=== PATIENT | female | born 1960 | race Caucasian/White ===

== ENCOUNTER 2019-10-04 10:53 | Emergency (ER) | payer OTHER, SELFPAY ==
--- NOTE | ~2019-10-04 | CT_ITS ---
EXAMINATION: CT brain wo con EXAM DATE: 10/04/2019 13:06 INDICATION: Generalized headache nausea, left upper quadrant pain. TECHNIQUE: Spiral CT of the head was performed without contrast. Axial, coronal and sagittal images were reviewed. The dose-length product (DLP) for this examination was 605.33 mGy-cm. The exposure w as tailored according to patient size, and iterative reconstruction (ASIR) was used as additional dos e reduction technique. Comparison is made to prior examination from 04/26/2009. FINDINGS: There is no acute intraparenchymal hemorrhage. No evidence of intraparenchymal brain mass lesion. No evidence of acute infarction. There is no mass effect or midline shift. The ventricles are normal in size. There are no extra-axial collections. There are no acute calvarial fractures. T he orbits are unremarkable. Soft tissue is unremarkable. The visualized sinuses and mastoid air verona ls are well aerated. There is right frontal calvarial intramedullary lucent region measuring 1.2 cm in diameter with some trabeculation inside. Region was barely noticeable on head CT from 2008, measuring about 5 mm in diam eter. Could be Paget's disease. IMPRESSION: 1. No acute intracranial findings. 2. Small right frontal calvarial intramedullary lesion probably benign finding such as Paget's disea se. Reviewed, dictated and finalized at location B. T SUPERVISOR IMPRESSION: 1. No acute intracranial findings. 2. Small right frontal calvarial intramedullary lesion probably benign finding such as Paget's disease.
--- NOTE | ~2019-10-04 | CT_ITS ---
EXAMINATION: CT abdomen pelvis w con EXAM DATE: 10/04/2019 13:07 INDICATION: Headache, generalized nausea, left upper quadrant pain. TECHNIQUE: Spiral CT of the abdomen and pelvis was performed following intravenous injection of 100 m L Omnipaque 350. Axial, coronal and sagittal images were reviewed. The dose-length product (DLP) fo r this examination was 1504.93 mGy-cm. The exposure was tailored according to patient size (auto mA exposure control), and iterative reconstruction (ASIR) was used as additional dose reduction techniqu e. Comparison is made to prior examination from 11/06/2018. FINDINGS: The liver, spleen, adrenal glands and pancreas are unremarkable. Gallbladder is unremarkab le. No biliary obstruction. Portal and splenic veins are patent. Kidneys enhance symmetrically. T here is no hydronephrosis. The uterus is unremarkable. The bladder is unremarkable. There is no retroperitoneal or pelvic lymphadenopathy. Small umbilical fat-containing hernia. The appendix is not positively visualized. There is no pericecal inflammatory change to suggest appe ndicitis. The stomach and small bowel are unremarkable. There is expected amount of colonic stool. No free intraperitoneal gas. There is cardiomegaly. There is mild basilar subpleural banding. T he lung bases are unremarkable. There are no osteoblastic or osteolytic lesions identified. Left hi p gamma nail. IMPRESSION: 1. No acute intra-abdominal findings. Reviewed, dictated and finalized at location B. ITURE DESIGNER
[2019-10-04 11:07] VITALS: O2SAT 98
[2019-10-04 11:15] VITALS: BP 230/112; PULSE 88; PULSE 93; RESP 18; RESP 24; TEMP 36.2; O2SAT 98
[2019-10-04 11:16] VITALS: BP 206/88; PULSE 90; RESP 20; O2SAT 97
[2019-10-04 11:16] LABS: Basophils Absolute Auto 0.1 K/mm3 (0.0-0.1); Basophils Percent Auto 0.5 % (0.2-1.2); Eosinophils Percent Auto 0.1 % (0-4.4); Hematocrit 40.7 % (37.0-47.0); Hemoglobin 13.1 g/dL (12.0-15.0); Immature Granulocyte Absolute 0.15 K/mm3 (0.00-0.031); Immature Granulocyte Percent A 1.2 % (0-0.5); Lymphocytes Percent Auto 24.4 % (18.3-44.2); Mean Corpuscular HGB Conc 32.2 g/dl (32-36); Mean Corpuscular Hemoglobin 26.8 pg (26-34); Mean Corpuscular Volume 83.2 fl (80-100); Mean Platelet Volume 10.5 fl (7.4-10.4); Monocytes Absolute Auto 0.6 K/mm3 (0.1-0.6); Monocytes Percent Auto 4.9 % (2.6-8.5); Neutrophils Absolute Auto 8.8 K/mm3 (1.3-6.7); Neutrophils Percent Auto 68.9 % (45.5-73.1); Platelet Count Result 350 k/mm3 (150-375); Red Blood Count 4.89 M/mm3 (4.2-5.4); Red Cell Distribution Width 14.2 % (11.5-14.5); White Blood Count 12.7 K/mm3 (4.5-10.0)
[2019-10-04 11:28] LABS: Alanine Aminotransferase 21 U/L (4-35); Albumin Level 4.5 g/dL (3.5-5.1); Alkaline Phosphatase 104 U/L (38-126); Aspartate Amino Transferase 29 U/L (14-36); Bilirubin,Total 0.5 mg/dL (0.2-1.3); Blood Urea Nitrogen 18 mg/dL (7-17); Calcium 9.4 mg/dL (8.4-10.2); Carbon Dioxide 20 mmol/L (22-30); Chloride 98 mmol/L (98-107); Estimated Glomerular Filt Rate > 60; Glucose 145 mg/dL (65-105); Lipase 101 U/L (23-300); Potassium 4.2 mmol/L (3.4-5.0); Sodium 132 mmol/L (137-145)
[2019-10-04 11:30] VITALS: PULSE 86; RESP 25
[2019-10-04 11:31] VITALS: BP 214/77; PULSE 87; RESP 22; O2SAT 96
[2019-10-04 12:08] LABS: Add Urine Microscopic? YES; Appearance Urine Clear (Clear); Bacteria Urine Trace /hpf; Bilirubin Urine Negative (Negative); Blood Urine 2+ (Negative); Color Urine Yellow (Yellow); Glucose Urine UA Negative (Negative); Ketones Urine Negative (Negative); Leukocyte Esterase Ur Negative LEU/UL (Negative); Mucus Urine Few /lpf; Nitrate Urine Negative (Negative); Protein Urine 3+ mg/dL (Negative); Specific Grav Ur 1.023 (1.001-1.035); Squamous Epithelial Cell Urine Many /hpf (Few); Urobilinogen Urine Negative mg/dL (<2.0)
--- NOTE | 2019-10-04 12:10 | ED.NAVMDI ---
HPI - Nausea/Vomiting/Diarrhea General Chief complaint: Abdominal Pain Stated complaint: ABD PAIN Time Seen by Provider: 10/04/19 12:06 Source: patient and RN notes reviewed Mode of arrival: ambulatory Limitations: no limitations History of Present Illness HPI Narrative: Pt is a 59 y/o female who presents to the ED with c/o nausea, vomiting, and diarrhea starting early this morning. She notes that she developed heart palpitations around 11 PM last night. Pt states that she was struggling to sleep due to her heart pounding. She notes that she later developed severe nausea around 2 AM this morning. Pt states that she began vomiting shortly after becoming nauseas. She notes that she has since had roughly 6 episodes of diarrhea, stating that her stools have been loose. Pt also reports diffuse ABD pain, sinus headache, chronic neck pain, nasal congestion, and urinary frequency, but denies any fever or chills. She notes that she hasn't been around any sick contacts recently. MD elicited complaint: nausea, vomiting and diarrhea Onset (ago): hour(s) (10) Description of diarrhea: lose Associated nausea: Yes Associated abdominal pain: Yes Location of pain: diffuse Associated symptoms: headaches (sinus), palpitation and other (neck pain (chronic); nasal congestion; urinary frequency) Related Data Allergies Allergy/AdvReac Type Severity Reaction Status Date / Time No Known Allergies Allergy Verified 10/04/19 12:26 Review of Systems Review of Systems: All systems reviewed & are unremarkable except as noted in HPI and below Constitutional: Constitutional: Denies chills and Denies fever(s) ENT: Reports headache(s) (sinus) and Reports nasal congestion Cardiovascular: Cardiovascular: Reports palpitations Gastrointestinal: Gastrointestinal: Reports abdominal pain (diffuse ABD pain), Reports diarrhea, Reports nausea and Reports vomiting Genitourinary: Genitourinary: Reports other (urinary frequency) Musculoskeletal: Musculoskeletal: Reports neck pain (chronic) FORMERLY [facility], [facility]–1983 Past Medical History Medical History Arthritis Asthma Bronchitis C. difficile colitis HTN (hypertension) Surgical History Surgical History Hx of appendectomy Hx of tonsillectomy Social History Social History Smoking status: Never smoker Second hand tobacco smoke exposure: No Alcohol intake: never Gender identity (if verbalized by the patient): Female Comments PCP is HISTORY PROFESSOR Sunshine Blancas. Exam Narrative: Exam Narrative: General appearance: Well-developed, well-nourished, morbidly obese, at the bedside Skin: Normal color Head: Normocephalic, nontraumatic Eyes: Clear conjunctiva ENT: Oropharynx normal, ears normal, nose normal Neck: Supple, nontender Chest and respiratory: Airway patent, no respiratory distress, no accessory muscle use Heart: Regular rate/rhythm Abdomen: Soft, mild diffuse abdominal tenderness, no organomegaly, quiet bowel sounds Vascular: Normal peripheral pulses, normal capillary refill. Musculoskeletal: Normal range of motion, nontender back Neurologic: Alert and oriented ?3, PROFESSOR OF GRAPHIC DESIGN is normal as tested, no gross motor deficit Course Course Emergency Course: Improving HISTORY PROFESSOR/PA Physician Supervision Patient feeling much better, no headache, no nausea, no abdominal pain, no palpitation Reevaluation(s) Date: 10/04/19 Time: 13:56 Vital Signs Vital signs: Vital Signs Temperature 36.2 C L 10/04/19 11:15 Pulse Rate 93 10/04/19 11:15 Respiratory Rate 18 10/04/19 11:15 Blood Pressure 230/112 H 10/04/19 11:15
[2019-10-04] MEDS: SODIUM CHLORIDE 0.9% IV 1,000 ML 999 ML IV CONT (13:29)
[2019-10-04] MEDS: ONDANSETRON INJ 4 MG/2 ML VIAL IV PUSH (13:32)
[2019-10-04] MEDS: KETOROLAC 30 MG/ML VIAL (*BKC) IV PUSH (13:33)
[2019-10-04] MEDS: HYDROMORPHONE HCL 1 MG/ML INJ 0.5 MG IV PUSH (13:34)
[2019-10-04 14:47] VITALS: BP 128/70; PULSE 81; RESP 17; O2SAT 93
== END 2019-10-04 15:10 | disposition home or self-care (01) ==
PROVIDERS: Emergency Medicine; Emergency Provider Emergency Medicine; PCP Nurse Practitioner Family
DX: B34.9 Viral infection, unspecified (principal); R00.2 Palpitations; E87.1 Hypo-osmolality and hyponatremia; M19.90 Unspecified osteoarthritis, unspecified site; R31.21 Asymptomatic microscopic hematuria; J45.909 Unspecified asthma, uncomplicated; I10 Essential (primary) hypertension
CPT/HCPCS: 36415; 70450; 74177; 80053; 81001; 81025; 83690; 85025; 96361; 96374; 96375; 99284; J1170; J1885; J2405; J7030; Q9967

== ENCOUNTER 2019-10-07 14:24 | Emergency (ER) | payer OTHER, SELFPAY ==
--- NOTE | ~2019-10-07 | CT_ITS ---
EXAMINATION: CT abdomen pelvis w con DATE: 10/07/2019 16:30 INDICATION: Abdominal pain. Nausea and vomiting. TECHNIQUE: Computed tomography (CT) of the abdomen and pelvis was performed with 100 mL Omnipaque 350 intravenous contrast. Automated exposure control and iterative reconstruction technique were employe d. The dose-length product was 1461.03 mGy-cm. COMPARISON: CT abdomen and pelvis 10/04/2019 FINDINGS: The visualized portions of the lung bases demonstrate chronic peripheral reticular opacitie s and subpleural bands, consistent with chronic lung disease. There is a left posterior diaphragmatic hernia containing fat. No pleural effusion. The heart size is normal. No pericardial effusion. The l iver, gallbladder, spleen, pancreas, and adrenal glands are normal. There is cortical thinning of the kidneys. There are no dilated loops of bowel. The appendix is not visualized. There are no pathologi reji enlarged lymph nodes. There is no free intraperitoneal fluid. There is a romy and screw fixation of left femur. There is mild thoracolumbar spondylosis. IMPRESSION: 1. No etiology for the patient's symptoms. Reviewed, dictated and finalized at location A. UTER FIELD TECHNICIAN
[2019-10-07 14:33] VITALS: BP 125/69; PULSE 89; RESP 16; TEMP 36.8; O2SAT 96
--- NOTE | 2019-10-07 14:49 | ED.NAVMDI ---
HPI - Nausea/Vomiting/Diarrhea General Chief complaint: Nausea/Vomiting/Diarrhea Stated complaint: N/V DIZZY Time Seen by Provider: 10/07/19 14:49 Source: patient Mode of arrival: ambulatory Limitations: no limitations History of Present Illness HPI Narrative: A 59 y/o female presents to the ED with c/o nausea and generalized weakness. Pt denies vomiting and diarrhea stating that she has not eaten anything since Tuesday (4 days ago). Pt states that taking a hot shower somewhat alleviated her symptoms. Pt experienced similar problems about 20 years ago and was diagnosed with C-diff at the time. She reports body aches, ABD cramping, dizziness, and a cough, but denies CP. Pertinent past history: other (C-diff) Relieving factors: hot shower/bath Related Data Allergies Allergy/AdvReac Type Severity Reaction Status Date / Time No Known Allergies Allergy Verified 10/07/19 14:39 Review of Systems Review of Systems: Narrative: Constitutional: Positive for generalized weakness, body aches, dizziness. Negative for fever and chills. HENT: Negative for congestion. Eyes: Negative for blurred vision. Respiratory: Positive for cough. Negative for shortness of breath. Cardiovascular: Negative for chest pain. Gastrointestinal: Positive for nausea, ABD cramping. Negative for vomiting, and diarrhea. Genitourinary: Negative for dysuria and hematuria. Musculoskeletal: Negative for back pain and neck pain. Neurological: Negative for headaches or focal motor deficit. All systems reviewed & are unremarkable except as noted in HPI and below PMFSH Past Medical History Medical History Arthritis Asthma Bronchitis C. difficile colitis Fractures History of blood transfusion HTN (hypertension) Surgical History Surgical History Hx of appendectomy Hx of tonsillectomy Social History Social History Smoking status: Never smoker Second hand tobacco smoke exposure: No Alcohol intake: never Gender identity (if verbalized by the patient): Female Comments PCP: Sunshine Blancas NP Exam Narrative: Exam Narrative: Constitutional: Appears well-developed. No distress. Head: Normocephalic. Nose: Nose normal. Mouth/Throat: Oropharynx is clear and moist. Eyes: Conjunctiva are normal. Neck: Normal range of motion. Neck supple. Cardiovascular: Normal rate and regular rhythm. Pulmonary/Chest: Effort normal and breath sounds normal. Abdominal: Soft. There is no tenderness. Musculoskeletal: Normal range of motion. No edema. Neurological: Alert and oriented to person, place, and time. Skin: Skin is warm. No pallor. Psychiatric: Normal mood and affect. Course Vital Signs Vital signs: Vital Signs Temperature 36.8 C 10/07/19 14:33 Pulse Rate 89 10/07/19 14:33 Respiratory Rate 16 10/07/19 14:33 Blood Pressure 125/69 10/07/19 14:33 Pulse Oximetry 96 10/07/19 14:33 Temperature 36.8 C 10/07/19 14:33 Pulse Rate 68 10/07/19 18:42 Respiratory Rate 16 10/07/19 18:42 Blood Pressure 130/66 10/07/19 18:42 Pulse Oximetry 98 10/07/19 18:42 MDM - Nausea/Vomiting/Diarrhea Lab Data Result diagrams: 10/07/19 15:40 10/07/19 15:40 Labs: Lab Results 10/07/19 10/07/19 10/07/19 Range/Units 15:40 15:40 15:56 WBC 10.7 H (4.5-10.0) K/mm3 RBC 4.92 (4.2-5.4) M/mm3 Hgb 13.1 (12.0-15.0) g/dL Hct 41.0 (37.0-47.0) % MCV 83.3 (80-100) fl MCH 26.6 (26-34) pg MCHC 32.0 (32-36) g/dl RDW 14.4 (11.5-14.5) % Plt Count 292 (150-375) k/mm3 MPV 10.4 (7.4-10.4) fl Immature Gran % (Auto) 0.4 (0-0.5) % Neut % (Auto) 73.9 H (45.5-73.1) % Lymph % (Auto) 14.1 L (18.3-44.2) % [place] % (Auto) 10.4 H (2.6-8.5) % Eos % (Auto) 0.8 (0-4.4) % Baso % (Auto) 0.4 (0.2-1.2)
[2019-10-07] MEDS: SODIUM CHLORIDE 0.9% IV 1,000 ML 999 ML IV CONT (15:17)
[2019-10-07] MEDS: ONDANSETRON INJ 4 MG/2 ML VIAL IV PUSH (15:18)
[2019-10-07] MEDS: LORAZEPAM INJ 2 MG/ML VIAL 1 MG IV PUSH (15:19)
[2019-10-07 15:20] VITALS: BP 135/68; PULSE 69; RESP 17; O2SAT 97
[2019-10-07 15:47] LABS: Basophils Percent Auto 0.4 % (0.2-1.2); Eosinophils Absolute Auto 0.1 K/mm3 (0-0.3); Eosinophils Percent Auto 0.8 % (0-4.4); Hemoglobin 13.1 g/dL (12.0-15.0); Immature Granulocyte Absolute 0.04 K/mm3 (0.00-0.031); Immature Granulocyte Percent A 0.4 % (0-0.5); Lymphocytes Absolute Auto 1.51 K/mm3 (0.9-3.2); Lymphocytes Percent Auto 14.1 % (18.3-44.2); Mean Corpuscular Hemoglobin 26.6 pg (26-34); Mean Corpuscular Volume 83.3 fl (80-100); Mean Platelet Volume 10.4 fl (7.4-10.4); Monocytes Absolute Auto 1.1 K/mm3 (0.1-0.6); Monocytes Percent Auto 10.4 % (2.6-8.5); Neutrophils Absolute Auto 7.9 K/mm3 (1.3-6.7); Neutrophils Percent Auto 73.9 % (45.5-73.1); Platelet Count Result 292 k/mm3 (150-375); Red Blood Count 4.92 M/mm3 (4.2-5.4); Red Cell Distribution Width 14.4 % (11.5-14.5); White Blood Count 10.7 K/mm3 (4.5-10.0)
[2019-10-07 15:58] LABS: Alanine Aminotransferase 22 U/L (4-35); Albumin Level 4.1 g/dL (3.5-5.1); Alkaline Phosphatase 70 U/L (38-126); Aspartate Amino Transferase 31 U/L (14-36); Bilirubin,Total 0.9 mg/dL (0.2-1.3); Blood Urea Nitrogen 15 mg/dL (7-17); Carbon Dioxide 23 mmol/L (22-30); Chloride 101 mmol/L (98-107); Estimated CRCL calculation 54 ml/min; Estimated Glomerular Filt Rate 42; Glucose 122 mg/dL (65-105); Lipase 128 U/L (23-300); Potassium 3.2 mmol/L (3.4-5.0); Sodium 136 mmol/L (137-145)
[2019-10-07 16:25] LABS: Add Urine Microscopic? YES; Appearance Urine Cloudy (Clear); Bacteria Urine 2+ /hpf; Bilirubin Urine Negative (Negative); Blood Urine Negative (Negative); Color Urine Yellow (Yellow); Glucose Urine UA Negative (Negative); Hyaline Casts Urine 15-19 /lpf; Ketones Urine 1+ mg/dL (Negative); Leukocyte Esterase Ur Negative LEU/UL (Negative); Mucus Urine Few /lpf; Nitrate Urine Negative (Negative); Protein Urine Negative (Negative); Specific Grav Ur 1.015 (1.001-1.035); Squamous Epithelial Cell Urine Many /hpf (Few); WBC Urine 0-3 /hpf
[2019-10-07 16:52] LABS: Amphetamine Screen Urine Negative (Negative); Barbiturate Screen Urine Negative (Negative); Benzodiazepines Screen Urine Negative (Negative); Cannabinoid Screen Urine Negative (Negative); Cocaine Screen Urine Negative (Negative); Methadone Screen Urine Negative (Negative); Opiate Screen Urine Negative (Negative); Phencyclidine Screen Urine Negative (Negative)
[2019-10-07] MEDS: POTASSIUM CHLORIDE 20 MEQ TABLET 40 MEQ PO (17:17)
[2019-10-07 17:18] VITALS: BP 138/82; PULSE 66; RESP 16; O2SAT 97
[2019-10-07 17:43] VITALS: BP 142/75; PULSE 72; RESP 16; O2SAT 96
[2019-10-07 18:42] VITALS: BP 130/66; PULSE 68; RESP 16; O2SAT 98
== END 2019-10-07 19:24 | disposition home or self-care (01) ==
PROVIDERS: Emergency Medicine; Emergency Provider Emergency Medicine; PCP Nurse Practitioner Family
DX: R11.0 Nausea (principal); R10.9 Unspecified abdominal pain; M19.90 Unspecified osteoarthritis, unspecified site; J45.909 Unspecified asthma, uncomplicated; I10 Essential (primary) hypertension
CPT/HCPCS: 36415; 74177; 80053; 80307; 81001; 83690; 85025; 96361; 96374; 96375; 99284; A9270; J2060; J2405; J7030; Q9967

== ENCOUNTER 2019-10-12 19:38 | Emergency (ER) | payer OTHER, SELFPAY ==
--- NOTE | ~2019-10-12 | CT_ITS ---
EXAMINATION: CT brain wo con DATE: 10/13/2019 00:43 INDICATION: Dizziness TECHNIQUE: Computed tomography (CT) of the head was performed without intravenous contrast. The mA wa s adjusted according to patient size. Iterative reconstruction technique was employed. Exam dose: 60 5.33 mGy-cm total exam DLP. COMPARISON: 10/04/2019 CT head FINDINGS: No intracranial mass lesion or hemorrhage or evidence of cerebrovascular accident. No midli ne shift or mass effect. Normal ventricular size. No subdural or epidural hematoma. No skull fracture is evident. Again noted is an intramedullary lesion in the parasagittal right frontal bone. The included paranasal sinuses and mastoid air cells are essentially unremarkable other than some pat maykel soft tissue thickening of the ethmoid air cells. IMPRESSION: No acute intracranial finding or significant change since 10/04/2019 Reviewed, dictated and finalized at Location A. Reviewed, dictated and finalized at location A. UNCTURIST IMPRESSION: No acute intracranial finding or significant change since 0
--- NOTE | ~2019-10-12 | XR_ITS ---
XR chest 2V DATE: 10/13/2019 00:43 INDICATION: Cough TECHNIQUE: PA and lateral views COMPARISON: 11/19/2018 CT pulmonary scan 11/01/2018 2 view chest FINDINGS: Normal heart size. Aortic calcification. No hilar or mediastinal enlargement. Chronic mild blunting of the costophrenic angles. No pulmonary infiltrate or consolidation, pleural effusion or pulmonary vascular congestion or pneumo thorax. Degenerative spurring of the thoracic spine. IMPRESSION: No active cardiopulmonary disease or significant change since 11/01/2018 Reviewed, dictated and finalized at location A. NDING MACHINE OPERATOR HELPER IMPRESSION: No active cardiopulmonary disease or significant change since 2018
--- NOTE | ~2019-10-12 | CT_ITS ---
EXAMINATION: CT abdomen pelvis w con DATE: 10/13/2019 00:43 INDICATION: Generalized abdominal pain, nausea TECHNIQUE: Computed tomography (CT) of the abdomen and pelvis was performed with 100 cc Omnipaque 350 intravenous contrast. Automated exposure control and iterative reconstruction technique were employe d. Exam dose: 1516.11 mGy-cm total exam DLP. COMPARISON: 10/07/2019 CT abdomen and pelvis with IV contrast material FINDINGS: The contrast material reportedly infiltrated upon injection and there is essentially no int ravenous contrast material on board. No consolidation at the lung bases. Normal heart size. No pericardial or pleural effusion. No hepatic, splenic, pancreatic, adrenal or renal space-occupying mass lesion. The gallbladder is pre sent. No bile duct or pancreatic duct dilatation. No renal mass lesion or urinary tract calculus or h ydroureteronephrosis. Normal caliber of the abdominal aorta. The uterus and adnexal areas and urinary bladder are unremarkable. No bowel obstruction or intraperitoneal free air. Small fat-containing umbilical hernia. An intramedullary romy is present in the left femur. No suspicious osteolytic or osteoblastic lesions. IMPRESSION: No significant abnormality Reviewed, dictated and finalized at Location A. Reviewed, dictated and finalized at location A. T TEAM CLERK IMPRESSION: No significant abnormality
[2019-10-12 19:51] VITALS: BP 167/101; PULSE 106; RESP 28; TEMP 37.7; O2SAT 100
[2019-10-12 20:04] LABS: Basophils Absolute Auto 0.1 K/mm3 (0.0-0.1); Basophils Percent Auto 0.7 % (0.2-1.2); Eosinophils Absolute Auto 0.1 K/mm3 (0-0.3); Eosinophils Percent Auto 0.9 % (0-4.4); Hematocrit 39.6 % (37.0-47.0); Hemoglobin 12.8 g/dL (12.0-15.0); Immature Granulocyte Absolute 0.02 K/mm3 (0.00-0.031); Immature Granulocyte Percent A 0.3 % (0-0.5); Lymphocytes Absolute Auto 1.37 K/mm3 (0.9-3.2); Lymphocytes Percent Auto 18.5 % (18.3-44.2); Mean Corpuscular HGB Conc 32.3 g/dl (32-36); Mean Corpuscular Volume 83.5 fl (80-100); Mean Platelet Volume 10.1 fl (7.4-10.4); Monocytes Absolute Auto 1.2 K/mm3 (0.1-0.6); Monocytes Percent Auto 16.6 % (2.6-8.5); Neutrophils Absolute Auto 4.7 K/mm3 (1.3-6.7); Platelet Count Result 269 k/mm3 (150-375); Red Blood Count 4.74 M/mm3 (4.2-5.4); Red Cell Distribution Width 14.8 % (11.5-14.5); White Blood Count 7.4 K/mm3 (4.5-10.0)
[2019-10-12 20:17] LABS: Alanine Aminotransferase 22 U/L (4-35); Albumin Level 4.2 g/dL (3.5-5.1); Alkaline Phosphatase 80 U/L (38-126); Aspartate Amino Transferase 29 U/L (14-36); Bilirubin,Total 0.5 mg/dL (0.2-1.3); Blood Urea Nitrogen 10 mg/dL (7-17); Calcium 9.4 mg/dL (8.4-10.2); Carbon Dioxide 26 mmol/L (22-30); Chloride 98 mmol/L (98-107); Estimated CRCL calculation 86 ml/min; Estimated Glomerular Filt Rate > 60; Glucose 119 mg/dL (65-105); Lipase 134 U/L (23-300); Potassium 4.2 mmol/L (3.4-5.0); Sodium 137 mmol/L (137-145)
[2019-10-12 20:18] LABS: Add Urine Microscopic? YES; Appearance Urine Clear (Clear); Bacteria Urine Trace /hpf; Bilirubin Urine Negative (Negative); Blood Urine 1+ (Negative); Color Urine Yellow (Yellow); Glucose Urine UA Negative (Negative); Ketones Urine Negative (Negative); Leukocyte Esterase Ur Negative LEU/UL (Negative); Mucus Urine Rare /lpf; Nitrate Urine Negative (Negative); Protein Urine Negative (Negative); Specific Grav Ur 1.015 (1.001-1.035); Squamous Epithelial Cell Urine Moderate /hpf (Few); Urobilinogen Urine Negative mg/dL (<2.0); WBC Urine 0-3 /hpf
--- NOTE | 2019-10-12 22:41 | ED.NAVMDI ---
HPI - Nausea/Vomiting/Diarrhea General Chief complaint: Nausea/Vomiting/Diarrhea Stated complaint: N/V Time Seen by Provider: 10/12/19 22:39 Source: patient Mode of arrival: ambulatory Limitations: no limitations History of Present Illness HPI Narrative: A 59 y/o female presents to the ED with c/o diffuse ABD pain. She states that the ABD pain started 1 week ago and has been constant since. Pt reports dizziness, trouble walking, neck pain/stiffness, sinus congestion, sinus pressure, tinnitus, worsening vision, constipation, N/V, and back pain, but denies dysuria, hematuria, and fever. Her neck stiffness started 1.5 weeks ago and her last BM was on 10/08/19. She notes that she has been seen in the ED twice before for the same symptoms. She finished Bactrim last week and is currently on a Z-Jose. MD elicited complaint: abdominal pain (Diffuse) Onset (ago): week(s) (1) Associated nausea: Yes Location of pain: diffuse Pain consistency: constant Associated symptoms: nausea/vomiting, change in vision (Worsening vision) and other (Dizziness, trouble walking, neck pain/stiffness, sinus congestion, sinus pressure, tinnitus, constipation, back pain) Treatment prior to arrival: other (Z-Jose) Related Data Allergies Allergy/AdvReac Type Severity Reaction Status Date / Time No Known Allergies Allergy Verified 10/12/19 23:16 Review of Systems Review of Systems: Narrative: CONSTITUTIONAL: Denies fever, chills, or sweats. EYES: Denies redness or discharge. Reports worsening vision. ENT: Denies rhinorrhea, sore throat, or otalgia. Reports tinnitus, sinus pressure, and sinus congestion. CARDIOVASCULAR: Denies chest pain, palpitations, or edema. RESPIRATORY: Denies cough or dyspnea. GASTROINTESTINAL: Denies diarrhea. Reports diffuse abdominal pain, nausea, vomiting, and constipation. GENITOURINARY: Denies dysuria or hematuria. SKIN: Denies rash or itching. MUSCULOSKELETAL: Denies joint pain or myalgia. Reports back pain and neck pain and stiffness. NEUROLOGIC: Denies headache, numbness, or weakness. Reports dizziness and trouble walking. All systems reviewed & are unremarkable except as noted in HPI and below PMFSH Past Medical History Medical History Arthritis Asthma Bronchitis C. difficile colitis Fractures History of blood transfusion HTN (hypertension) Post-menopausal Surgical History Surgical History Hx of appendectomy Hx of tonsillectomy Social History Social History Smoking status: Never smoker Second hand tobacco smoke exposure: No Alcohol intake: never Gender identity (if verbalized by the patient): Female Exam Narrative: Exam Narrative: GENERAL: Well-appearing, obese, and in no acute distress. HEAD: Normocephalic, atraumatic. EYES: PERRLA and EOMI. ENT: Nares clear, no rhinorrhea or epistaxis. Mucous membranes moist. NECK: Supple. CHEST: Clear to auscultation. No respiratory distress. HEART: Regular rate and rhythm. No murmur heard. Normal peripheral pulses. ABDOMEN: Soft, diffuse tenderness, nondistended, normal active bowel sounds. EXTREMITIES: Normal range of motion. No edema. SKIN: Warm, dry, no rash. NEURO: No focal deficits. Alert and oriented X3. Course Course Emergency Course: Patient presented for evaluation of a myriad of complaints, found to have influenza A. No acute findings on chest, CT abdomen pelvis, or CT head. Patient was able to tolerate oral intake. No severe electrolyte derangements, no UTI. Patient discharged home with influenza treatment, advised symptomatic care. Vital Signs Vital signs: Vital Signs Temperature 37.7 C H 10/12/19 19:51 Pulse Rate 106 H 10/12/19 19:51 Respiratory Rate 28 H 10/12/19 19:51 Blood Pressure 167/101 H 10/12/19 19:51 Pulse Oximetry 100 10/12/19 19:51 Temperature 37.7 C H 10/12/19 19:51 Pulse Rate 83
[2019-10-12 23:11] VITALS: BP 159/73; PULSE 83; RESP 18; O2SAT 97
--- NOTE | 2019-10-12 23:30 | PC.NURSE ---
This nurse and EMT student attempted IV access, no success. mounted police officer aware, she stated she will attempt IV access.
[2019-10-13] MEDS: MORPHINE SULFATE 4 MG/ML INJ IV PUSH (00:03)
[2019-10-13] MEDS: SODIUM CHLORIDE 0.9% IV 1,000 ML 999 ML IV CONT (00:03)
[2019-10-13] MEDS: ONDANSETRON INJ 4 MG/2 ML VIAL IV PUSH (00:03)
[2019-10-13] MEDS: ACETAMINOPHEN 500 MG TABLET 1000 MG PO (03:27)
[2019-10-13 03:29] VITALS: BP 143/94; PULSE 75; RESP 20; O2SAT 97
== END 2019-10-13 03:30 | disposition home or self-care (01) ==
PROVIDERS: Emergency Medicine; Emergency Provider Emergency Medicine; PCP Nurse Practitioner Family
DX: J10.2 Influenza due to other identified influenza virus with gastrointestinal manifestations (principal); M19.90 Unspecified osteoarthritis, unspecified site; J45.909 Unspecified asthma, uncomplicated; I10 Essential (primary) hypertension
CPT/HCPCS: 36415; 70450; 71046; 74177; 80053; 81001; 83690; 85025; 87804; 96361; 96365; 96375; 99284; A9270; J0131; J2270; J2405; J7030; Q9967

== ENCOUNTER 2019-10-17 04:22 | Emergency (ER) | payer OTHER, SELFPAY ==
[2019-10-17] VITALS (10 sets, daily range): BP systolic 127–178; BP diastolic 59–103; PULSE 68–89; RESP 16–20; TEMP 36.5–37; O2SAT 20–100
--- NOTE | ~2019-10-17 | XR_ITS ---
EXAMINATION: XR chest 2V EXAM DATE: 10/17/2019 08:45 INDICATION: Cough. TECHNIQUE: Frontal and lateral projections of the chest obtained and reviewed. Comparison is made to prior examination from 10/13/2019. FINDINGS: The lungs are clear. There are no pleural effusions. The cardiomediastinal silhouette is within normal limits. There is no pneumothorax suspected. The bones and soft tissues are unremarkab le. IMPRESSION: Normal chest x-ray exam. Reviewed, dictated and finalized at location B. INE DYER IMPRESSION: Normal chest x-ray exam.
--- NOTE | ~2019-10-17 | XR_ITS ---
EXAMINATION: XR abdomen obstructive series DATE: 10/17/2019 06:29 INDICATION: Vomiting. Left upper quadrant abdominal pain. TECHNIQUE: Frontal supine and upright views of the abdomen were obtained. COMPARISON: CT dated 10/13/2019 FINDINGS: Moderate amount of gas scattered throughout the colon with scattered air-fluid level suggesting diarr hea. No dilated gas-filled loops of bowel. No free intraperitoneal gas. Visualized lung bases are c lear. IMPRESSION: 1. No free intraperitoneal gas or dilated gas-filled loops of bowel to suggest obstruction. Reviewed, dictated and finalized at location A. FARMWORKER
--- NOTE | 2019-10-17 05:00 | PC.NURSE ---
PT UNABLE TO GIVE URINE SAMPLE AT THIS TIME.
[2019-10-17 05:13] LABS: Basophils Percent Auto 0.3 % (0.2-1.2); Eosinophils Absolute Auto 0.1 K/mm3 (0-0.3); Eosinophils Percent Auto 0.9 % (0-4.4); Hematocrit 40.7 % (37.0-47.0); Hemoglobin 12.5 g/dL (12.0-15.0); Immature Granulocyte Absolute 0.02 K/mm3 (0.00-0.031); Immature Granulocyte Percent A 0.3 % (0-0.5); Lymphocytes Absolute Auto 1.67 K/mm3 (0.9-3.2); Lymphocytes Percent Auto 24.2 % (18.3-44.2); Mean Corpuscular HGB Conc 30.7 g/dl (32-36); Mean Corpuscular Hemoglobin 26.2 pg (26-34); Mean Corpuscular Volume 85.1 fl (80-100); Mean Platelet Volume 10.2 fl (7.4-10.4); Monocytes Absolute Auto 0.5 K/mm3 (0.1-0.6); Monocytes Percent Auto 7.4 % (2.6-8.5); Neutrophils Absolute Auto 4.6 K/mm3 (1.3-6.7); Neutrophils Percent Auto 66.9 % (45.5-73.1); Platelet Count Result 231 k/mm3 (150-375); Red Blood Count 4.78 M/mm3 (4.2-5.4); Red Cell Distribution Width 14.3 % (11.5-14.5); White Blood Count 6.9 K/mm3 (4.5-10.0)
[2019-10-17 05:27] LABS: Alanine Aminotransferase 26 U/L (4-35); Alkaline Phosphatase 62 U/L (38-126); Aspartate Amino Transferase 40 U/L (14-36); Bilirubin,Total 0.5 mg/dL (0.2-1.3); Blood Urea Nitrogen 8 mg/dL (7-17); Calcium 9.2 mg/dL (8.4-10.2); Carbon Dioxide 27 mmol/L (22-30); Chloride 95 mmol/L (98-107); Estimated CRCL calculation 76 ml/min; Estimated Glomerular Filt Rate > 60; Glucose 143 mg/dL (65-105); Lipase 78 U/L (23-300); Potassium 3.7 mmol/L (3.4-5.0); Sodium 137 mmol/L (137-145)
--- NOTE | 2019-10-17 06:00 | PC.NURSE ---
PT UNABLE TO VOID AT THIS TIME.
--- NOTE | 2019-10-17 06:20 | ED.NAVMDI ---
HPI - Nausea/Vomiting/Diarrhea General Chief complaint: Nausea/Vomiting/Diarrhea Stated complaint: vomiting Time Seen by Provider: 10/17/19 05:25 Source: old records reviewed History of Present Illness HPI Narrative: Patient presents emergency department from home for nausea vomiting diarrhea. Patient states symptoms began yesterday. Patient states she has had numerous episodes of emesis is been unable to keep anything down. States that she had diarrhea yesterday and took Imodium which did help with her diarrhea. Patient reports she has been having pain in her left upper quadrant. She reports subjective fevers. Denies any chest pain or shortness of breath. Denies any other symptoms at this time Related Data Allergies Allergy/AdvReac Type Severity Reaction Status Date / Time No Known Allergies Allergy Verified 10/12/19 23:16 Review of Systems Review of Systems: Narrative: Gen.: Denies fevers or chills ENT: Denies congestion Respiratory: Denies shortness of breath or cough CV: Denies chest pain or palpitations GI: See HPI denies burning, urgency, frequency or hematuria Musculoskeletal: Denies back pain or muscle pain Neuro: Denies numbness, tingling, weakness or focal weakness Skin: Denies rash Except as documented, all other systems reviewed and negative PMFSH Past Medical History Medical History Arthritis Asthma Bronchitis C. difficile colitis Fractures History of blood transfusion HTN (hypertension) Post-menopausal Social History Social History Smoking status: Never smoker Second hand tobacco smoke exposure: No Alcohol intake: never Gender identity (if verbalized by the patient): Female Exam Narrative: Exam Narrative: APPEARANCE: No acute distress, nontoxic, resting in bed HEENT: Normocephalic, atraumatic, OMM RESPIRATORY: No respiratory distress, clear to auscultation bilaterally with no rhonchi wheezing or rales CARDIOVASCULAR: RRR s murmur ABDOMINAL: Obese, soft, nondistended, tender palpation in left upper quadrant, no tenderness right upper quadrant, right lower quadrant with lower quadrant, no rebound or guarding MUSCULOSKELETAl: Moves all extremities. No clubbing, cyanosis or edema. NEURO: Awake and alert. Following commands, speech normal, no focal deficits SKIN:: Warm, dry. Normal Color PSYCHIATRIC: Normal affect/mood Course Course Emergency Course: Reviewed old records. Patient seen in emergency department on October 12. Diagnosed with influenza A at that time. Patient states she has 2 Tamiflu left Patient states she is feeling better. Able to drink in the emergency department with no emesis. Patient with walking pulse ox able to ambulate on her own with no difficulty oxygen saturations remained in the 90s Patient states that they are feeling much better at this time. States abdominal pain has resolved. Repeat abdominal exam shows the patient's abdomen to be soft and nontender. Discussed with patient results of workup and diagnosis. Discussed need for follow-up with primary care physician, reasons to return to the emergency department in proper use of medication. Patient understands and agrees to current treatment plan Vital Signs Vital signs: Vital Signs Temperature 97.7 F 10/17/19 04:26 Pulse Rate 87 10/17/19 04:26 Respiratory Rate 20 10/17/19 04:26 Blood Pressure 172/94 H 10/17/19 04:26 Pulse Oximetry 97 10/17/19 04:26 Temperature 98.6 F 10/17/19 05:24 Pulse Rate 73 10/17/19 09:08 Respiratory Rate 20 10/17/19 09:08 Blood Pressure 139/59 L 10/17/19 09:08 Pulse Oximetry 94 10/17/19 09:08 MDM - Nausea/Vomiting/Diarrhea Lab Data Result diagrams: 10/17/19 05:08 10/17/19 05:08 Labs: Lab Results 10/17/19 10/17/19 10/17/19 Range/Units 05:08 05:08 07:32 WBC 6.9 (4.5-10.0) K/mm3 RBC 4.78 (4.2
[2019-10-17] MEDS: LACTATED RINGERS 1,000 ML 999 ML IV CONT (06:39)
[2019-10-17] MEDS: ONDANSETRON INJ 4 MG/2 ML VIAL IV PUSH (06:39)
[2019-10-17 07:51] LABS: Add Urine Microscopic? YES; Appearance Urine Clear (Clear); Bilirubin Urine Negative (Negative); Blood Urine 1+ (Negative); Color Urine Straw (Yellow); Glucose Urine UA Negative (Negative); Ketones Urine Negative (Negative); Leukocyte Esterase Ur Negative LEU/UL (Negative); Mucus Urine Rare /lpf; Nitrate Urine Negative (Negative); Protein Urine Negative (Negative); RBC Urine 0-2 /hpf (0-2); Specific Grav Ur 1.006 (1.001-1.035); Squamous Epithelial Cell Urine Rare /hpf (Few); Urobilinogen Urine Negative mg/dL (<2.0); WBC Urine 0-3 /hpf
[2019-10-17] MEDS: PROMETHAZINE HCL 25 MG/ML AMPUL 12.5 MG IV PUSH (09:03)
== END 2019-10-17 13:40 | disposition home or self-care (01) ==
PROVIDERS: General Practice; Emergency Provider Emergency Medicine; PCP Nurse Practitioner Family
DX: J10.1 Influenza due to other identified influenza virus with other respiratory manifestations (principal); R11.2 Nausea with vomiting, unspecified; M19.90 Unspecified osteoarthritis, unspecified site; J45.909 Unspecified asthma, uncomplicated; I10 Essential (primary) hypertension
CPT/HCPCS: 36415; 71046; 74019; 80053; 81001; 83690; 85025; 96361; 96374; 96375; 99284; J2405; J2550; J7120

== ENCOUNTER 2020-01-07 12:56 | Outpatient (CLI) | payer OTHER, SELFPAY ==
--- NOTE | ~2020-01-07 | CT_ITS ---
EXAMINATION: CT abdomen pelvis wo con DATE: 01/07/2020 13:50 INDICATION: Acute right low back pain TECHNIQUE: Computed tomography (CT) of the abdomen and pelvis was performed without intravenous contr ast. The dose-length product was 1460.76 mGy-cm. Automated exposure control and iterative reconstruct ion technique were employed. COMPARISON: CT dated 10/13/2019 FINDINGS: Lung bases are unremarkable. Heart size is normal. No significant pleural or pericardial ef fusion. Lung bases are unremarkable. No significant vascular abnormality. No lymphadenopathy. Small fat-containing umbilical hernia. The liver, spleen, pancreas, adrenal glands and kidneys are un remarkable. No renal/ureteral stones. Bladder is unremarkable. No abnormal pelvic masses or fluid col lections. There is an intramedullary romy in the left femur, partially visualized. No acute osseous ab normality. IMPRESSION: 1. No acute abdominal abnormality. Reviewed, dictated and finalized at location A.
== END 2020-01-07 12:57 | disposition home or self-care (01) ==
LOC: ANHIMG 13:02
PROVIDERS: PCP Nurse Practitioner Family; Visit Provider Nurse Practitioner Family
DX: M54.41 Lumbago with sciatica, right side (principal); R31.9 Hematuria, unspecified; R80.9 Proteinuria, unspecified
CPT/HCPCS: 74176

== ENCOUNTER 2020-01-21 17:06 | Emergency (ER) | payer OTHER, SELFPAY ==
--- NOTE | ~2020-01-21 | CT_ITS ---
EXAMINATION: CT brain wo con INDICATION: Head injury COMPARISON: None TECHNIQUE: Standard unenhanced head CT. The dose-length product (DLP) was 605.33 mGy-cm. The mA was a djusted according to patient size. Iterative reconstruction technique was employed. FINDINGS: There is no intracranial hemorrhage, acute infarction, or abnormal mass lesion. The ventric les are normal. There is no abnormal mass effect or midline shift. The davenport-white matter differentiat ion is normal. The basal cisterns are patent. The orbits are normal. A polyp or mucous retention cyst is noted in the left maxillary sinus. IMPRESSION: 1. No acute intracranial abnormality. Reviewed, dictated and finalized at location A.
--- NOTE | ~2020-01-21 | XR_ITS ---
EXAMINATION: XR knee LT 3V DATE: 01/21/2020 20:58 INDICATION: Left knee pain TECHNIQUE: Three views of the left knee were obtained. COMPARISON: 05/27/2015 FINDINGS: There is partially imaged internal stabilization hardware in the distal femur traversing a healed distal shaft fracture. Alignment is normal. No acute fracture or osteochondral lesion. There i s moderate tricompartmental osteoarthritis. No joint effusion/synovitis. Soft tissues are unremarkab le. IMPRESSION: 1. No acute osseous abnormality. Reviewed, dictated and finalized at location A.
--- NOTE | ~2020-01-21 | CT_ITS ---
EXAMINATION: CT cervical spine wo con DATE: 01/21/2020 20:24 INDICATION: Neck pain after fall TECHNIQUE: Computed tomography (CT) of the cervical spine was performed without intravenous contrast. The dose-length product (DLP) was 447.95 mGy-cm. Automated exposure control and iterative reconstruc tion technique were employed. COMPARISON: None FINDINGS: There is straightening of the cervical spine which can be positional or due to muscular spa sm. The vertebral body heights and alignment are normal. There is mild loss of intervertebral disc sp jacob height at C4-5, C5-6, and C6-7. The odontoid is intact. The prevertebral soft tissues are normal. Degenerative osteophytes project from the anterior endplates of multiple vertebral bodies. There is severe multilevel facet and uncovertebral joint osteoarthritis. IMPRESSION: 1. Moderate cervical spondylosis without acute findings. Reviewed, dictated and finalized at location A.
--- NOTE | ~2020-01-21 | XR_ITS ---
EXAMINATION: XR hip BI 2V w AP pelvis DATE: 01/21/2020 20:56 INDICATION: Hip pain after fall TECHNIQUE: AP view the pelvis and three views of the hips were obtained. COMPARISON: None. FINDINGS: An intramedullary romy is present in the left femur. There is no acute fracture, dislocation , or subluxation. Bone alignment is normal. IMPRESSION: 1. No acute osseous abnormality. Reviewed, dictated and finalized at location A.
--- NOTE | ~2020-01-21 | XR_ITS ---
EXAMINATION: XR wrist LT min 3V DATE: 01/21/2020 20:58 INDICATION: Left wrist pain TECHNIQUE: Posteroanterior, ulnar deviation, oblique, and lateral views of the left wrist were obtain ed. COMPARISON: None available FINDINGS: There is a chronic-appearing ulnar styloid avulsion. No acute fracture is identified. There is moderate osteoarthritis at the triscaphe and first carpometacarpal joints. Mild osteoarthritis is noted in multiple interphalangeal joints. IMPRESSION: 1. No acute osseous abnormality. Reviewed, dictated and finalized at location A.
--- NOTE | ~2020-01-21 | XR_ITS ---
EXAMINATION: XR ankle LT min 3V DATE: 01/21/2020 20:55 INDICATION: Ankle pain after fall TECHNIQUE: Anteroposterior, lateral, mortise, and additional oblique view of the ankle were obtained. COMPARISON: None. FINDINGS: There is no fracture, dislocation, or subluxation. The bones, soft tissues, and joint space s are normal. IMPRESSION: 1. No acute osseous abnormality. Reviewed, dictated and finalized at location A.
--- NOTE | ~2020-01-21 | XR_ITS ---
EXAMINATION: XR elbow LT min 3V DATE: 01/21/2020 20:56 INDICATION: Left elbow pain after fall TECHNIQUE: Anteroposterior, two oblique and lateral views of the left elbow were obtained. COMPARISON: None. FINDINGS: The examination is limited by the patient's body habitus. There is a questionable nondispla ame fracture of the radial head involving the articular surface. Soft tissues are unremarkable. IMPRESSION: 1. Possible nondisplaced fracture of the radial head. Reviewed, dictated and finalized at location A.
--- NOTE | ~2020-01-21 | CT_ITS ---
EXAMINATION: CT lumbar spine wo con DATE: 01/21/2020 20:24 INDICATION: Low back pain TECHNIQUE: Computed tomography (CT) of the lumbar spine was performed without intravenous contrast. T he dose-length product (DLP) was 1103.42 mGy-cm. Iterative reconstruction was used. COMPARISON: None FINDINGS: There is no fracture, dislocation, or subluxation. There is mild loss of intervertebral dis c space height at L4-5. Vertebral body heights are normal. The prevertebral soft tissues tissues are unremarkable. IMPRESSION: 1. Mild lumbar spondylosis without acute findings. Reviewed, dictated and finalized at location A.
[2020-01-21 17:16] VITALS: BP 155/84; PULSE 86; RESP 18; TEMP 36.6; O2SAT 97
--- NOTE | 2020-01-21 18:25 | PC.NURSE ---
Pt ambulated to the bathroom with walker with no difficulty
[2020-01-21 19:10] VITALS: BP 160/87; PULSE 78; RESP 18; O2SAT 99
--- NOTE | 2020-01-21 19:22 | ED.FALL ---
HPI - Fall General Chief Complaint: Fall <Lily Esposito PA-C - Last Filed: 01/21/20 21:49> Stated Complaint: FALL <TRAMAINE Pleitez Last Filed: 01/21/20 21:49> Time Seen by Provider: 01/21/20 18:02 <TRAMAINE Pleitez Last Filed: 01/21/20 21:49> Source: patient <TRAMAINE Pleitez Last Filed: 01/21/20 21:49> Mode of arrival: EMS <TRAMAINE Pleitez Last Filed: 01/21/20 21:49> Limitations: no limitations <TRAMAINE Pleitez Last Filed: 01/21/20 21:49> History of Present Illness HPI Narrative: This is a 59-year-old female that presents to the emergency department for a fall today. Reports she tripped walking up onto a curb. Reports falling on her left side and striking her head. Denies loss of consciousness. Reports that she has had pain in the left elbow, left wrist, left knee and left ankle. Also reports some neck and low back pain. Denies fever, chest pain, shortness of breath, vision changes, vomiting, numbness or weakness. <Lily Esposito PA-C - Last Filed: 01/21/20 21:49> Related Data Allergies/Adverse Reactions: Allergies Allergy/AdvReac Type Severity Reaction Status Date / Time No Known Allergies Allergy Verified 01/21/20 17:22 <Lily Esposito PA-C - Last Filed: 01/21/20 21:49> Review of Systems Review of Systems: Narrative: CONSTITUTIONAL: Denies fever EYES: Denies visual changes CARDIOVASCULAR: Denies chest pain RESPIRATORY: Denies dyspnea. GASTROINTESTINAL: Denies vomiting MUSCULOSKELETAL: Reports back pain, joint pain, and myalgia. NEUROLOGIC: Denies numbness, or weakness. <TRAMAINE Pleitez Last Filed: 01/21/20 21:49> All systems reviewed & are unremarkable except as noted in HPI and below <TRAMAINE Pleitez Last Filed: 01/21/20 21:49> [facility] Social History Social History: Social History Smoking status: Never smoker Second hand tobacco smoke exposure: No Alcohol intake: never Gender identity (if verbalized by the patient): Female <Lily Esposito PA-C - Last Filed: 01/21/20 21:49> Exam Narrative: Exam Narrative: GENERAL: Well-appearing, obese, and in no acute distress. HEAD: Normocephalic. Superficial abrasion to the left side of the forehead EYES: PERRLA and EOMI. ENT: Nares clear, no rhinorrhea or epistaxis. Mucous membranes moist. Oropharynx without tonsillar hypertrophy exudate or other lesions. Bilateral TMs pearly davenport non-bulging NECK: Supple. No adenopathy or masses. C collar in place CHEST: Clear to auscultation. No respiratory distress. No wheezes rales or rhonchi HEART: Regular rate and rhythm. No murmur heard. Normal peripheral pulses. BACK: No midline thoracic spine tenderness. Tender palpation of midline lumbar spine EXTREMITIES: Normal range of motion. No edema or obvious deformity. SKIN: Warm, dry, no rash. NEURO: No focal deficits. Alert and oriented x3. Cranial nerves II through XII grossly intact PSYCH: Normal mood and affect <Lily Esposito PA-C - Last Filed: 01/21/20 21:49> Course Consultations Consultation #1: Spoke with Dr. Rodriguez about patient and work-up will follow-up in clinic. <Lily Esposito PA-C - Last Filed: 01/21/20 21:49> Date: 01/21/20 <Lily Esposito PA-C - Last Filed: 01/21/20 21:49> Time: 21:48 <TRAMAINE Pleitez Last Filed: 01/21/20 21:49> Vital Signs Vital signs: Vital Signs Temperature 97.8 F 01/21/20 17:16 Pulse Rate 86 01/21/20 17:16 Respiratory Rate 18 01/21/20 17:16 Blood Pressure 155/84 H 01/21/20 17:16 Pulse Oximetry 97 01/21/20 17:16 Temperature 97.8 F 01/21/20 17:16 Pulse Rate 78 01/21/20 19:10 Respiratory Rate 18 01/21/20 19:10 Blood Pressure 160/87 H 01/21/20 19:10 Pulse Oximetry 99 01/21/20 19:10 <Lily Esposito PA-C - Last Filed: 01/21/20 21:49> Vital Signs Temperature 97.8 F 01/21/20
[2020-01-21 22:02] VITALS: BP 132/80; PULSE 80; RESP 20; TEMP 36.8; O2SAT 99
== END 2020-01-21 22:03 | disposition home or self-care (01) ==
PROVIDERS: Emergency Provider General Practice; PCP Nurse Practitioner Family
DX: S52.125A Nondisplaced fracture of head of left radius, initial encounter for closed fracture (principal); S09.90XA Unspecified injury of head, initial encounter; W10.1XXA Fall (on)(from) sidewalk curb, initial encounter
CPT/HCPCS: 70450; 72125; 72131; 73080; 73110; 73521; 73562; 73610; 99284; A4565; A9270

== ENCOUNTER 2020-07-16 06:39 | Outpatient (NON) | payer OTHER, SELFPAY ==
[2020-07-17 14:56] LABS: SARS-CoV-2 RNA PCR Negative
== END 2020-07-16 06:40 ==
LOC: ANHCOVIDDT 06:57
PROVIDERS: Visit Provider Nurse Practitioner Family
DX: Z20.828 Contact with and (suspected) exposure to other viral communicable diseases (principal); R05 Cough; R51.9 Headache, unspecified; J34.89 Other specified disorders of nose and nasal sinuses
CPT/HCPCS: 87635; C9803; U0003

== ENCOUNTER 2021-04-14 07:19 | Emergency (ER) | payer OTHER, SELFPAY ==
[2021-04-14] VITALS (30 sets, daily range): BP systolic 99–207; BP diastolic 62–94; PULSE 74–100; RESP 13–25; TEMP 36.2–36.9; O2SAT 92–100
--- NOTE | ~2021-04-14 | CT_ITS ---
EXAMINATION: CTA chest PE protocol DATE: 04/14/2021 10:56 INDICATION: Chest pain. Shortness of breath. TECHNIQUE: Computed tomography angiography (CTA) of the chest was performed with 200 mL Omnipaque-350 intravenous contrast timed to evaluate the pulmonary arteries. Coronal maximum intensity projection 3D-reconstructions were created by the technologist. Automated exposure control and iterative reconst ruction technique were employed. The dose-length product was 1884.01 mGy-cm. COMPARISON: Chest CT 11/17/2018 FINDINGS: There are subpleural bands and peripheral reticular opacities in the right middle lobe and lower lobes. No bronchiectasis or honeycombing. The heart size is normal. No pericardial effusion. Th ere is no pulmonary embolus. There are bridging endplate osteophytes at multiple levels in the spine, consistent with diffuse idiopathic skeletal hyperostosis (DISH). IMPRESSION: 1. No pulmonary embolus. 2. Mild chronic lung disease. Reviewed, dictated and finalized at location A.
--- NOTE | ~2021-04-14 | XR_ITS ---
EXAMINATION: XR chest 2V DATE: 04/14/2021 09:26 INDICATION: Chest pain, shortness of breath, and cough. TECHNIQUE: Frontal and lateral views of the chest were obtained. COMPARISON: Chest 2 views 10/17/2019, CT abdomen and pelvis 01/07/2020 FINDINGS: There are chronic airspace opacities in lateral right lower lung zone, consistent with scar ring. No pleural effusion or pneumothorax. The heart size is normal. IMPRESSION: 1. Mild lateral scarring in right lower lung zone. Reviewed, dictated and finalized at location A.
--- NOTE | 2021-04-14 07:35 | ECG_ITS ---
Measurements Intervals [place] Rate: 84 P: 26 MD: 179 QRS: 38 QRSD: 106 T: 57 QT: 364 QTc: 431 Interpretive Statements SINUS RHYTHM BASELINE ARTIFACT- II, III, AVF NORMAL ECG Electronically Signed On 04-14-2021 8:06:05 CDT by Lemuel Monson D.O.
--- NOTE | 2021-04-14 09:31 | PC.NURSE ---
Attempted to call , Lucien, per pt request. No answer, called # listed in chart..
--- NOTE | 2021-04-14 09:35 | ED.GENADULT ---
HPI - General Adult General Chief complaint: Upper Respiratory Infection Stated complaint: SOB & COUGH Time Seen by Provider: 04/14/21 08:56 History of Present Illness HPI narrative: 60-year-old female presents with chest pain and cough. Reports symptoms began a couple days ago. Reports her came home with a cough symptoms so maybe she picked something up from her . They both went and got tested for Covid and it was negative. Her symptoms resolved but hers have persisted. Cough is productive without blood is associated with shortness of breath. Reports pain in her right upper back that is worse with deep inspiration. She denies fevers. She reports prior history of PE but is not on anticoagulation Related Data Home Medications Medication Instructions Recorded Confirmed azithromycin 04/14/21 Allergies Allergy/AdvReac Type Severity Reaction Status Date / Time No Known Allergies Allergy Verified 04/14/21 07:35 Review of Systems Review of Systems: CONSTITUTIONAL: Denies fever, chills, or sweats. EYES: Denies visual changes, redness, or discharge. ENT: Denies rhinorrhea, sore throat, or otalgia. CARDIOVASCULAR: Denies palpitations, or edema. RESPIRATORY: Reports productive cough and shortness of breath GASTROINTESTINAL: Denies abdominal pain, nausea, vomiting, or diarrhea. GENITOURINARY: Denies dysuria or hematuria. SKIN: Denies rash or itching. MUSCULOSKELETAL: Denies back pain, joint pain, or myalgia. NEUROLOGIC: Denies headache, numbness, dizziness, or weakness. PSYCHIATRIC: Denies anxiety or depression. PMFSH Past Medical History Medical History (Updated 04/14/21 @ 14:37 by Meir Sherwood MD) Arthritis Asthma Bronchitis C. difficile colitis Fractures History of blood clots History of blood transfusion HTN (hypertension) Post-menopausal Surgical History Surgical History History of ankle surgery right side Hx of appendectomy Hx of tonsillectomy Social History Social History Smoking status: Never smoker Second hand tobacco smoke exposure: No Alcohol intake: never Gender identity (if verbalized by the patient): Female Exam Narrative: GENERAL: Well-appearing, well-nourished, and in no acute distress. HEAD: Normocephalic, atraumatic. EYES: PERRLA and EOMI. ENT: Nares clear, no rhinorrhea or epistaxis. Mucous membranes moist. NECK: Supple. No masses. No JVD CHEST: Mild rhonchi at bilateral lung base. No respiratory distress. No wheezes rales. HEART: Regular rate and rhythm. No murmur heard. Normal peripheral pulses. ABDOMEN: Soft, nontender, nondistended, normal active bowel sounds. EXTREMITIES: Normal range of motion. No edema. SKIN: Warm, dry, no rash. NEURO: No focal deficits. Alert and oriented x3. PSYCH: Normal mood and affect. Course Reevaluation(s) Reevaluation #1: Reports feeling improved after DuoNeb therapy Date: 04/14/21 Time: 14:35 Vital Signs Vital signs: Vital Signs Temperature 36.2 C L 04/14/21 07:31 Pulse Rate 100 04/14/21 07:31 Respiratory Rate 20 04/14/21 07:31 Blood Pressure 207/92 H 04/14/21 07:31 Pulse Oximetry 98 04/14/21 07:31 Temperature 36.2 C L 04/14/21 07:31 Pulse Rate 85 04/14/21 13:49 Respiratory Rate 17 04/14/21 13:49 Blood Pressure 157/71 H 04/14/21 13:47 Pulse Oximetry 100 04/14/21 13:47 Medical Decision Making [facility] Narrative Medical decision making narrative: H&P as above, vss, pt looks clinically well, exam mild crackles at the lung base, labs mild elevation in diameter, img without PE additional labs/img considered, symptomatic relief available as needed, on reevaluation pt continues to looks clinically well. Suspect bronchitis, dns pneumonia, severe sepsis, severe dehydration, PE. plan to tx/monitor as op w/ pcm f/u findings/plan discussed with pt, pt agree/comfortable with
--- NOTE | 2021-04-14 10:05 | PC.NURSE ---
Lucien, asked to leave room because pt does not have a resulted COVID test yet. Lucien's number [phone].
[2021-04-14 10:11] LABS: Basophils Absolute Auto 0.1 K/mm3 (0.0-0.1); Basophils Percent Auto 0.8 % (0.2-1.2); Eosinophils Absolute Auto 0.1 K/mm3 (0-0.3); Eosinophils Percent Auto 1.9 % (0-4.4); Hematocrit 40.7 % (37.0-47.0); Hemoglobin 12.7 g/dL (12.0-15.0); Immature Granulocyte Absolute 0.02 K/mm3 (0.00-0.031); Immature Granulocyte Percent A 0.3 % (0-0.5); Lymphocytes Absolute Auto 3.08 K/mm3 (0.9-3.2); Lymphocytes Percent Auto 47.6 % (18.3-44.2); Mean Corpuscular HGB Conc 31.2 g/dl (32-36); Mean Corpuscular Hemoglobin 27.1 pg (26-34); Mean Platelet Volume 11.2 fl (7.4-10.4); Monocytes Absolute Auto 1.1 K/mm3 (0.1-0.6); Monocytes Percent Auto 16.5 % (2.6-8.5); Neutrophils Absolute Auto 2.1 K/mm3 (1.3-6.7); Neutrophils Percent Auto 32.9 % (45.5-73.1); Platelet Count Result 316 k/mm3 (150-375); Red Blood Count 4.68 M/mm3 (4.2-5.4); Red Cell Distribution Width 14.1 % (11.5-14.5); White Blood Count 6.5 K/mm3 (4.5-10.0)
[2021-04-14 10:46] LABS: Estimated CRCL calculation 87 ml/min; Estimated Glomerular Filt Rate > 60
[2021-04-14 10:47] LABS: Prothrombin Time 12.6 Seconds (11.1-14.7)
[2021-04-14 10:48] LABS: Partial Thromboplastin Time 29.9 SECONDS (22.3-36.8)
[2021-04-14 10:50] LABS: D Dimer 0.76 ug/mL (<0.48)
--- NOTE | 2021-04-14 11:16 | PC.NURSE ---
report to NACHO Dawn
[2021-04-14 11:29] LABS: Alanine Aminotransferase 22 U/L (4-35); Albumin Level 3.8 g/dL (3.5-5.1); Alkaline Phosphatase 79 U/L (38-126); Anion Gap 7 mmol/L (8-16); Aspartate Amino Transferase 30 U/L (14-36); Bilirubin,Total 0.4 mg/dL (0.2-1.3); Blood Urea Nitrogen 14 mg/dL (7-17); Calcium 8.9 mg/dL (8.4-10.2); Carbon Dioxide 26 mmol/L (22-30); Chloride 101 mmol/L (98-107); Estimated CRCL calculation 87 ml/min; Estimated Glomerular Filt Rate > 60; Glucose 96 mg/dL (65-110); Lipase 110 U/L (23-300); Potassium 3.8 mmol/L (3.4-5.0); Sodium 134 mmol/L (137-145)
[2021-04-14 11:42] LABS: NT Pro B Type Natriuretic Pept 34 pg/mL (5-100); Troponin I < 0.012 ng/mL (0.000-0.034)
--- NOTE | 2021-04-14 12:14 | PC.NURSE ---
repeat troponin drawn peripherally and sent
[2021-04-14 12:45] LABS: Troponin I < 0.012 ng/mL (0.000-0.034)
--- NOTE | 2021-04-14 12:59 | PC.NURSE ---
Spoke with patient's daughter, Elis, with permission of patient and gave her an update.
[2021-04-14] MEDS: ALBUTEROL SULFATE NEB 2.5 MG/0.5 ML INH 5 MG INHALATION (13:38)
[2021-04-14] MEDS: IPRATROPIUM BR 0.02% INH SOLN 0.5 MG/2.5 ML VIAL INHALATION (13:38)
--- NOTE | 2021-04-14 14:41 | PC.NURSE ---
Called Talon for an update with permission from patient. Informed him patient is being discharged
== END 2021-04-14 15:05 | disposition home or self-care (01) ==
PROVIDERS: Emergency Provider Emergency Medicine; PCP Nurse Practitioner Family
DX: J40 Bronchitis, not specified as acute or chronic (principal); I10 Essential (primary) hypertension; Z78.0 Asymptomatic menopausal state
CPT/HCPCS: 36415; 71046; 71275; 80053; 83690; 83880; 84484; 85025; 85380; 85610; 85730; 93005; 94640; 99284; Q9967

== ENCOUNTER → 2021-11-11 00:28 | Outpatient (CLI) | payer OTHER, SELFPAY ==
[2021-11-11 11:45] LABS: SARS-CoV-2 RNA PCR Negative
== END ==
PROVIDERS: PCP Nurse Practitioner Family; Visit Provider Nurse Practitioner Family
DX: R05.9 Cough, unspecified (principal); J02.9 Acute pharyngitis, unspecified; Z20.822 Contact with and (suspected) exposure to COVID-19
CPT/HCPCS: C9803; U0003; U0005

== ENCOUNTER 2021-11-12 07:22 | Emergency (ER) | payer OTHER, SELFPAY ==
[2021-11-12] VITALS (23 sets, daily range): BP systolic 142–189; BP diastolic 69–99; PULSE 81–102; RESP 13–28; TEMP 36.6–36.9; O2SAT 96–100
--- NOTE | ~2021-11-12 | XR_ITS ---
EXAMINATION: XR chest 2V DATE: 11/12/2021 08:05 INDICATION: Cough and congestion. TECHNIQUE: Frontal and lateral views of the chest were obtained. COMPARISON: Chest 2 views 04/14/2021, chest CT 04/14/2021 FINDINGS: There are mild chronic peripheral airspace opacities in right mid and lower lung zones and left lower lung zone. No pleural effusion or pneumothorax. The heart size is normal. IMPRESSION: 1. Stable mild chronic lung disease. Reviewed, dictated and finalized at location A. 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
[2021-11-12] MEDS: ALBUTEROL SULFATE NEB 2.5 MG/0.5 ML INH 5 MG INHALATION (08:08)
[2021-11-12] MEDS: IPRATROPIUM BR 0.02% INH SOLN 0.5 MG/2.5 ML VIAL INHALATION (08:09)
--- NOTE | 2021-11-12 09:10 | ED.GENADULT ---
HPI - General Adult General Chief complaint: Upper Respiratory Infection Stated complaint: Shortness of Breath and Congestion Time Seen by Provider: 11/12/21 07:30 History of Present Illness HPI narrative: Patient is a 61-year-old female who presents to the ER with cold symptoms. Patient reports she had sinus congestion over the last 6 months but then over the last 4 days she has developed postnasal drip with cough. She also can hear herself wheezing. She obtained an outpatient swab for Covid yesterday that was negative. No fevers or chills or sweats. No chest pain or chest pressure. Has found no alleviating factors. Related Data Home Medications Medication Instructions Recorded Confirmed azithromycin 04/14/21 Allergies Allergy/AdvReac Type Severity Reaction Status Date / Time No Known Allergies Allergy Verified 04/14/21 07:35 Review of Systems Review of Systems: All systems reviewed & are unremarkable except as noted in HPI and below Constitutional: Constitutional: Denies chills, Reports fatigue and Denies fever(s) ENT: Reports nasal congestion and Reports sore throat Cardiovascular: Cardiovascular: Denies chest pain, Denies rapid heart rate and Denies radiating jaw, neck or arm pain Respiratory: Respiratory: Reports cough, Denies dyspnea and Reports wheezing Gastrointestinal: Gastrointestinal: Denies abdominal pain, Denies diarrhea, Denies nausea and Denies vomiting PMFSH Past Medical History Medical History (Updated 11/12/21 @ 09:14 by Thanh Davsi MD) Arthritis Asthma Bronchitis C. difficile colitis Fractures History of blood clots History of blood transfusion HTN (hypertension) Post-menopausal Surgical History Surgical History History of ankle surgery right side Hx of appendectomy Hx of tonsillectomy Social History Social History Smoking status: Never smoker Second hand tobacco smoke exposure: No Alcohol intake: never Gender identity (if verbalized by the patient): Female Exam Narrative: GENERAL: Well-appearing, well-nourished, and in no acute distress. HEAD: Normocephalic, atraumatic. CHEST: Decreased air movement with expiratory wheezing and some referred upper respiratory breath sounds. No distress. HEART: Regular rate and rhythm. Normal peripheral pulses. ABDOMEN: Soft, nontender, nondistended. EXTREMITIES: Normal range of motion. No edema. NEURO: Alert and oriented x3. PSYCH: Normal mood and affect. Course Course Emergency Course: Patient reevaluated after nebulizer treatment. Patient is moving air much better and wheezing has markedly improved. Still some referred upper respiratory breath sounds. Discharged with prednisone and albuterol. Vital Signs Vital signs: Vital Signs Temperature 98.1 F 11/12/21 07:28 Pulse Rate 98 11/12/21 07:28 Respiratory Rate 24 H 11/12/21 07:28 Blood Pressure 176/96 H 11/12/21 07:28 Pulse Oximetry 99 11/12/21 07:28 Temperature 98.5 F 11/12/21 08:22 Pulse Rate 90 11/12/21 08:22 Respiratory Rate 22 H 11/12/21 08:22 Blood Pressure 155/85 H 11/12/21 08:22 Pulse Oximetry 96 11/12/21 08:22 Medical Decision Making Vital Signs Vital Signs: Vital Signs Temperature 98.1 F 11/12/21 07:28 Pulse Rate 98 11/12/21 07:28 Respiratory Rate 24 H 11/12/21 07:28 Blood Pressure 176/96 H 11/12/21 07:28 Pulse Oximetry 99 11/12/21 07:28 Temperature 98.5 F 11/12/21 08:22 Pulse Rate 90 11/12/21 08:22 Respiratory Rate 22 H 11/12/21 08:22 Blood Pressure 155/85 H 11/12/21 08:22 Pulse Oximetry 96 11/12/21 08:22 Imaging Data Radiologist's impression: ITS Impressions Chest X-Ray 11/12/21 08:08 IMPRESSION: 1. Stable mild chronic lung disease. Discharge Plan Discharge Clinical Impression: Acute bronchitis Patient Disposition: Home, Self-Care
== END 2021-11-12 09:30 | disposition home or self-care (01) ==
PROVIDERS: Emergency Provider Emergency Medicine; PCP Nurse Practitioner Family
DX: J20.9 Acute bronchitis, unspecified (principal); J45.909 Unspecified asthma, uncomplicated; I10 Essential (primary) hypertension; M19.90 Unspecified osteoarthritis, unspecified site; J98.4 Other disorders of lung
CPT/HCPCS: 71046; 94640; 99283

== ENCOUNTER 2022-01-28 15:11 | Outpatient (CLI) | payer OTHER, SELFPAY ==
--- NOTE | ~2022-01-28 | CT_ITS ---
EXAMINATION: CT sinus wo con DATE: 01/28/2022 15:25 INDICATION: Chronic sinusitis TECHNIQUE: Computed tomography (CT) of the paranasal sinuses was performed without intravenous contra st. The dose-length product was 295.93 mGy-cm. Automated exposure control and iterative reconstructio n technique were employed. COMPARISON: CT dated 01/21/2020 FINDINGS: Subtle lytic lesion right frontal bone unchanged, likely benign. There is mucosal thickenin g of the maxillary and ethmoid sinuses. There are mucous retention cysts/polyps of the left maxillary sinus. Mastoids are pneumatized. Ostiomeatal units are patent. No significant nasal septal deviation . Mastoids are pneumatized. IMPRESSION: 1. Mild sinusitis, most advanced in the left maxillary sinus. Reviewed, dictated and finalized at location A.
== END 2022-01-28 15:12 | disposition home or self-care (01) ==
LOC: ANHIMG 15:11
PROVIDERS: PCP Nurse Practitioner Family; Visit Provider Otolaryngology
DX: J32.0 Chronic maxillary sinusitis (principal)
CPT/HCPCS: 70486

== ENCOUNTER 2022-07-26 08:00 | Emergency (ER) | payer OTHER, SELFPAY ==
[2022-07-26] VITALS (8 sets, daily range): BP systolic 147–181; BP diastolic 63–83; PULSE 87–96; RESP 17–21; TEMP 36.7; O2SAT 96–100
--- NOTE | ~2022-07-26 | CT_ITS ---
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 Shortness of breath. Covid positive. TECHNIQUE: Computed tomographic angiography (CTA) of the chest was performed with 100 mL Omnipaque-35 0 intravenous contrast. The dose-length product was 967.67 mGy-cm. Maximum intensity projection 3D-re constructions of the aorta and other arteries were constructed by the technologist on a separate work station. Automated exposure control and iterative reconstruction technique were employed. COMPARISON: CT dated 04/14/2021. FINDINGS: Study is technically adequate without evidence for pulmonary embolism. Evaluation of lower lobe segmental arteries limited by motion. No significant pleural or pericardial effusion. Cardiomega ly. Mild right paratracheal lymphadenopathy, likely reactive. There is dependent atelectasis. There a re subpleural bands in the right lower lung with peripheral areas of interlobular septal thickening, unchanged. No pneumothorax. No acute focal pneumonia, edema. No pneumothorax. IMPRESSION: 1. No evidence for pulmonary embolism. 2: Stable mild chronic interstitial lung disease. Reviewed, dictated and finalized at location B. WORKER
--- NOTE | ~2022-07-26 | XR_ITS ---
XR chest 2V 07/26/2022 08:44 Indication: Cough and shortness of breath Procedure: AP and lateral views of the chest Comparison: Comparison to multiple prior studies sequentially, with oldest reviewed study dated 04/2020. Findings: There is chronic right lower pleural thickening with adjacent scarring. Heart size normal. No focal air space disease, pulmonary edema, pleural effusion or suspected pneumothorax. Impression: 1: No acute cardiopulmonary disease. Reviewed, dictated and finalized at location B. 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
--- NOTE | 2022-07-26 08:29 | ECG_ITS ---
Measurements Intervals [place] Rate: 93 P: 42 [place]: 198 QRS: 40 QRSD: 98 T: 43 QT: 346 QTc: 430 Interpretive Statements SINUS RHYTHM MINIMAL Q WAVES- INFERIOR LEADS BASELINE ARTIFACT- I, II, III, AVR, AVL, AVF, V1-V3 BORDERLINE ECG COMPARED TO ECG 04/14/2021 07:27:08 NO SIGNIFICANT CHANGES Electronically Signed On 07-26-2022 9:12:18 STOCKROOM CLERK by Lemuel Monson D.O.
[2022-07-26 08:38] LABS: Basophils Absolute Auto 0.1 K/mm3 (0.0-0.1); Basophils Percent Auto 0.8 % (0.2-1.2); Eosinophils Absolute Auto 0.2 K/mm3 (0-0.3); Eosinophils Percent Auto 2.6 % (0-4.4); Hematocrit 40.4 % (37.0-47.0); Immature Granulocyte Absolute 0.03 K/mm3 (0.00-0.031); Immature Granulocyte Percent A 0.4 % (0-0.5); Lymphocytes Absolute Auto 2.05 K/mm3 (0.9-3.2); Lymphocytes Percent Auto 27.7 % (18.3-44.2); Mean Corpuscular HGB Conc 32.2 g/dl (32-36); Mean Corpuscular Hemoglobin 27.4 pg (26-34); Mean Corpuscular Volume 85.1 fl (80-100); Mean Platelet Volume 10.7 fl (7.4-10.4); Monocytes Percent Auto 13.8 % (2.6-8.5); Neutrophils Percent Auto 54.7 % (45.5-73.1); Platelet Count Result 286 k/mm3 (150-375); Red Blood Count 4.75 M/mm3 (4.2-5.4); Red Cell Distribution Width 14.5 % (11.5-14.5); White Blood Count 7.4 K/mm3 (4.5-10.0)
--- NOTE | 2022-07-26 09:02 | ED.SOB ---
HPI - SOB/Dyspnea General Chief Complaint: Shortness of Breath/Dyspnea Stated Complaint: sob, cough, ST Time Seen by Provider: 07/26/22 08:55 History of Present Illness HPI Narrative: Patient is a 61-year-old female with a history of COPD here for evaluation of upper respiratory infectious type symptoms for the past day. Patient reports sore throat, left ear pain, productive cough and feeling short of breath. Patient has not used her home inhalers for COPD. She denies sick contacts. Patient is fully vaccinated against COVID and flu. No chest pain, leg swelling, abdominal pain, nausea or vomiting, fevers or chills. Patient is tolerating her secretions. Related Data Allergies Allergy/AdvReac Type Severity Reaction Status Date / Time No Known Allergies Allergy Verified 07/26/22 08:29 Review of Systems Review of Systems: Gen: Denies fevers or chills Eyes: Denies eye pain or visual change ENT: Reports congestion and left ear pain Respiratory: Reports shortness of breath and cough CV: Denies chest pain or palpitations GI: Denies abdominal pain nausea, emesis or diarrhea denies burning, urgency, frequency or hematuria Musculoskeletal: Denies back pain or muscle pain Neuro: Denies numbness, tingling, weakness or focal weakness Skin: Denies rash Except as documented, all other systems reviewed and negative PMFSH Past Medical History Medical History (Updated 07/26/22 @ 10:01 by Lily Garcia PA-C) Arthritis Asthma Bronchitis C. difficile colitis Fractures History of blood clots History of blood transfusion HTN (hypertension) Post-menopausal Surgical History Surgical History History of ankle surgery right side Hx of appendectomy Hx of tonsillectomy Social History Social History Smoking status: Never smoker Second hand tobacco smoke exposure: No Alcohol intake: never Gender identity (if verbalized by the patient): Female Exam Narrative: APPEARANCE: Well appearing, no pain in distress, well-nourished. Head: Normocephalic and atraumatic. EYES: PERRLA/EOMI, conjunctivae clear NOSE: No nasal drainage EARS: Left TM is bulging. Right TM is normal. No mastoid tenderness. External ear normal in appearance THROAT: Oropharynx is clear. Mucous membranes are moist. NECK: Supple. No adenopathy, no masses. RESPIRATORY: Expiratory wheezing in bilateral lower lobes. Airway patent, respirations nonlabored. CARDIOVASCULAR: Regular rate and rhythm without murmurs, rubs, or gallops. ABDOMINAL: Normoactive bowel sounds. Soft, nontender, nondistended. No rebound tenderness or guarding. MUSCULOSKELETAL: Nonpitting edema to bilateral lower extremities. extremities are warm and well-perfused. Moves all extremities well. NEURO: Normal speech. No focal neurologic deficits. SKIN: Skin is warm and dry. No rashes. PSYCHIATRIC: Normal affect/mood. Course Vital Signs Vital signs: Vital Signs Temperature 98.1 F 07/26/22 08:21 Pulse Rate 93 07/26/22 08:21 Respiratory Rate 17 07/26/22 08:21 Blood Pressure 181/83 H 07/26/22 08:21 Pulse Oximetry 96 07/26/22 08:21 Oxygen Delivery Room Air 07/26/22 08:21 Temperature 98.1 F 07/26/22 08:21 Pulse Rate 94 07/26/22 10:53 Respiratory Rate 20 07/26/22 10:53 Blood Pressure 147/67 H 07/26/22 10:53 Pulse Oximetry 98 07/26/22 10:53 Oxygen Delivery Room Air 07/26/22 09:01 MDM - SOB/Dyspnea MDM Narrative Medical decision making narrative: 61-year-old female with a history of COPD and previous PE here for evaluation of shortness of breath, cough and generalized weakness for the past 3 days. Patient is nontoxic-appearing on exam and has normal vital signs. No hypoxia or COVID test is positive which does likely explain her symptoms, however given history of PE and patient's presenting symptoms, CTA was ordered to look
[2022-07-26] MEDS: ALBUTEROL SULFATE NEB 2.5 MG/3 ML INH 5 MG INHALATION (09:21)
[2022-07-26 09:49] LABS: Alanine Aminotransferase 20 U/L (6-35); Alkaline Phosphatase 84 U/L (38-126); Anion Gap 11 mmol/L (8-16); Aspartate Amino Transferase 31 U/L (14-36); Bilirubin,Total 0.7 mg/dL (0.2-1.3); Blood Urea Nitrogen 14 mg/dL (7-17); Calcium 8.6 mg/dL (8.4-10.2); Carbon Dioxide 24 mmol/L (22-30); Chloride 102 mmol/L (98-107); Estimated CRCL calculation 85 ml/min; Estimated Glomerular Filt Rate > 60; Glucose 110 mg/dL (65-110); Potassium 3.7 mmol/L (3.4-5.0); Sodium 137 mmol/L (137-145)
[2022-07-26 09:53] LABS: Influenza A QL RT-PCR Negative (Negative); Influenza B QL RT-PCR Negative (Negative); SARS-CoV-2 RNA PCR Positive
== END 2022-07-26 10:56 | disposition home or self-care (01) ==
PROVIDERS: Physician Assistant; Emergency Provider Emergency Medicine; PCP Nurse Practitioner Family
DX: U07.1 COVID-19 (principal); J44.9 Chronic obstructive pulmonary disease, unspecified; I10 Essential (primary) hypertension; M19.90 Unspecified osteoarthritis, unspecified site; R94.31 Abnormal electrocardiogram [ECG] [EKG]
CPT/HCPCS: 36415; 71046; 71275; 80053; 85025; 87636; 93005; 94640; 99284; Q9967

== ENCOUNTER 2023-08-20 10:20 | Emergency (ER) | payer OTHER, SELFPAY ==
[2023-08-20 10:22] VITALS: BP 153/97; PULSE 103; RESP 24; TEMP 36.3; O2SAT 99
[2023-08-20 10:50] VITALS: O2SAT 98
[2023-08-20 11:30] LABS: Appearance Urine Cloudy (Clear); Bacteria Urine None Seen /hpf; Bilirubin Urine Negative (Negative); Blood Urine 3+ (Negative); Color Urine Yellow (Yellow); Glucose Urine UA Negative (Negative); Ketones Urine Negative (Negative); Leukocyte Esterase Ur 3+ LEU/UL (Negative); Need Manual Microscopic Reviewed; Nitrate Urine Negative (Negative); Non Pathogenic Casts 0-2; Protein Urine 1+ mg/dL (Negative); Specific Grav Ur 1.002 (1.001-1.035); Squamous Epithelial Cell Urine None seen /hpf (Few); Urobilinogen Urine 0.2 mg/dL (<2.0); WBC Urine >100 /hpf; pH Urine 6.5 (5.0-9.0)
--- NOTE | 2023-08-20 11:30 | ED.FEMALEGU ---
HPI - Female Genitourinary General Chief complaint: Urogenital-Female Stated complaint: blood in toilet/bladder? Time Seen by Provider: 08/20/23 10:38 Source: patient Mode of arrival: ambulatory Limitations: no limitations History of Present Illness HPI Narrative: This is a 62-year-old female who presents to the ED with chief complaint of hematuria onset this morning. Reports that she had with seem to be mild blood clots seen in the urine. She also reports that she has had a sore urethra. Denies flank pain, fevers, chills, nausea, vomiting, abdominal pain, problems with bowel movements. Denies any history of diabetes or immunocompromised condition. She has had UTIs in the past but they are not frequent. Related Data Allergies Allergy/AdvReac Type Severity Reaction Status Date / Time No Known Allergies Allergy Verified 08/20/23 10:52 Review of Systems Review of Systems: All systems as dictated in HPI [facility] Past Medical History Medical History (Updated 08/20/23 @ 11:43 by Berry Dumont PA-C) Arthritis Asthma Bronchitis C. difficile colitis Fractures History of blood clots History of blood transfusion HTN (hypertension) Post-menopausal Surgical History Surgical History History of ankle surgery right side Hx of appendectomy Hx of tonsillectomy Social History Social History Smoking status: Never smoker Second hand tobacco smoke exposure: No Alcohol intake: never Living arrangements: with family Gender identity (if verbalized by the patient): Female Exam Narrative: GENERAL: Well-appearing, well-nourished, and in no acute distress. HEAD: Normocephalic, atraumatic. EYES: PERRLA and EOMI. ENT: Nares clear, no rhinorrhea or epistaxis. Mucous membranes moist. Oropharynx without tonsillar hypertrophy exudate or other lesions. NECK: Supple. No adenopathy or masses. CHEST: No respiratory distress. Clear to auscultation. No wheezes rales or rhonchi HEART: Regular rate and rhythm. No murmur heard. Normal peripheral pulses. ABDOMEN: Negative flank tenderness bilaterally. Soft, nontender, nondistended, normal active bowel sounds. MSK: Normal range of motion. No edema. SKIN: Warm, dry, no rash. NEURO: Alert and oriented x3. No focal deficits. PSYCH: Normal mood and affect. Course Vital Signs Vital signs: Vital Signs Temperature 97.3 F L 08/20/23 10:22 Pulse Rate 103 H 08/20/23 10:22 Respiratory Rate 24 H 08/20/23 10:22 Blood Pressure 153/97 H 08/20/23 10:22 Pulse Oximetry 99 08/20/23 10:22 Temperature 97.3 F L 08/20/23 10:22 Pulse Rate 76 08/20/23 11:51 Respiratory Rate 20 08/20/23 11:51 Blood Pressure 160/100 H 08/20/23 11:51 Pulse Oximetry 96 08/20/23 11:51 Oxygen Delivery Room Air 08/20/23 10:50 MDM - Female Genitourinary MDM Narrative Medical decision making narrative: This is a 62-year-old female who presents to the ED for chief complaint of hematuria. She she has also had dysuria. Vitals are normal. No flank pain. Afebrile. Urinalysis shows evidence of urinary tract infection with 3+ blood, 3+ leuks, greater than 100 white cells. Low concern for any kind of kidney stone or pyelonephritis without flank pain today. Symptoms consistent with simply TI. Prescription for Keflex given. Pt will be discharged in stable condition. Return precautions given and supportive measures discussed. Pt is understanding and agreeable with plan for discharge and follow-up with PCP. Lab Data Labs: Lab Results 08/20/23 Range/Units 11:07 Urine Color Yellow (Yellow) Urine Appearance Cloudy H (Clear) Urine pH 6.5 (5.0-9.0) Ur Specific [place] 1.002 (1.001-1.035) Urine Protein 1+ H (Negative) mg/dL Urine Glucose (UA) Negative (Negative) mg/dL Urine Ketones Negative (Negative) mg/dL Ur Blo
[2023-08-20 11:45] LABS: Add Urine Microscopic? YES
[2023-08-20 11:51] VITALS: BP 160/100; PULSE 76; RESP 20; O2SAT 96
== END 2023-08-20 12:02 | disposition home or self-care (01) ==
PROVIDERS: Emergency Provider Physician Assistant; PCP Nurse Practitioner Family
DX: N39.0 Urinary tract infection, site not specified (principal); J45.909 Unspecified asthma, uncomplicated; I10 Essential (primary) hypertension; M19.90 Unspecified osteoarthritis, unspecified site
CPT/HCPCS: 81001; 87086; 87088; 99283

== ENCOUNTER 2023-08-23 23:30 | Emergency (ER) | payer OTHER, SELFPAY ==
--- NOTE | ~2023-08-23 | CT_ITS ---
CT of the Abdomen and Pelvis: Indication: Abdominal pain Technique: 2.5 mm axial scans were obtained through the abdomen and pelvis following intravenous adm inistration of 100 cc of Omnipaque 350. Dose reduction technique was used on this scan by utilizing a utomated exposure control and iterative reconstruction technique. The dose-length product (DLP) was 1 719.78 mGy-cm. COMPARISON: 01/07/2020 Findings: Scans through the lung bases are unremarkable. The liver, spleen, pancreas, gallbladder, adrenals and kidneys are within normal limits. No evidence of aortic aneurysm. No lymphadenopathy. No bowel obstruction or bowel wall thickening. There is no evidence to suggest acute appendicitis. Images through the pelvis were performed. There is small amount of hyperdense material relatively dep endently in the urinary bladder. No adnexal mass seen. No ascites. Impression: Small amount of hyperdense material relatively dependently in urinary bladder. Findings could reflect excreted contrast versus possibly blood products. Correlate with urinalysis. Reviewed, dictated and finalized at location . 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 Findings could reflect excreted contrast versus possibly blood products. Correl ate with urinalysis.
[2023-08-23 23:32] VITALS: BP 131/75; PULSE 110; RESP 22; TEMP 36.6; O2SAT 95
[2023-08-24] VITALS (7 sets, daily range): BP systolic 130–172; BP diastolic 65–100; PULSE 75–101; RESP 15–16; TEMP 36.6; O2SAT 94–96
--- NOTE | 2023-08-24 00:02 | ED.GENADULT ---
HPI - General Adult General Chief complaint: Nausea/Vomiting/Diarrhea Stated complaint: N/V Time Seen by Provider: 08/23/23 23:54 History of Present Illness HPI narrative: patient is a 62-year-old female who presents emergency department with chief complaint of nausea vomiting and abdominal pain. Patient reports she was seen over the weekend in the emergency department and diagnosed with a bladder infection the patient reports he has been taking the antibiotics as started getting nauseated took some Zofran today but still continued to vomit. Patient states she has had chills denies actual fever denies diarrhea. Related Data Allergies Allergy/AdvReac Type Severity Reaction Status Date / Time No Known Allergies Allergy Verified 08/20/23 10:52 Review of Systems Review of Systems: A 10 system review of systems was completed on the patient and is negative except for what is stated in the HPI. Nursing and ancillary documentation was reviewed. [facility] Past Medical History Medical History (Updated 08/24/23 @ 05:37 by Jose Dean MD) Arthritis Asthma Bronchitis C. difficile colitis Fractures History of blood clots History of blood transfusion HTN (hypertension) Post-menopausal Surgical History Surgical History History of ankle surgery right side Hx of appendectomy Hx of tonsillectomy Social History Social History Smoking status: Never smoker Second hand tobacco smoke exposure: No Alcohol intake: never Living arrangements: with family Gender identity (if verbalized by the patient): Female Exam Narrative: GENERAL: Well-appearing, well-nourished, and in no acute distress. HEAD: Normocephalic, atraumatic. EYES: PERRLA and EOMI. ENT: Nares clear, no rhinorrhea or epistaxis. Mucous membranes moist. NECK: Supple. CHEST: Clear to auscultation. No respiratory distress. HEART: Regular rate and rhythm. No murmur heard. Normal peripheral pulses. ABDOMEN: Soft, Diffusely tender to palpation, nondistended, normal active bowel sounds. EXTREMITIES: Normal range of motion. No edema. SKIN: Warm, dry, no rash. NEURO: No focal deficits. Alert and oriented x3. PSYCH: Normal mood and affect. Course Vital Signs Vital signs: Vital Signs Temperature 36.6 C 12/19/23 23:32 Pulse Rate 110 H 08/23/23 23:32 Respiratory Rate 22 H 08/23/23 23:32 Blood Pressure 131/75 08/23/23 23:32 Pulse Oximetry 95 08/23/23 23:32 Oxygen Delivery Room Air 08/23/23 23:32 Temperature 36.6 C 08/23/23 23:32 Pulse Rate 92 08/24/23 04:11 Respiratory Rate 15 08/24/23 04:11 Blood Pressure 130/65 08/24/23 04:11 Pulse Oximetry 96 08/24/23 04:50 Oxygen Delivery Nasal Cannula 08/24/23 04:50 Oxygen Flow Rate 1 08/24/23 04:50 Medical Decision Making MDM Narrative Medical decision making narrative: differential diagnosis includes ureterolithiasis, UTI, laboratory studies were reviewed imaging studies were reviewed Vital Signs Vital Signs: Vital Signs Temperature 36.6 C 08/23/23 23:32 Pulse Rate 110 H 08/23/23 23:32 Respiratory Rate 22 H 08/23/23 23:32 Blood Pressure 131/75 08/23/23 23:32 Pulse Oximetry 95 08/23/23 23:32 Oxygen Delivery Room Air 08/23/23 23:32 Temperature 36.6 C 08/23/23 23:32 Pulse Rate 92 08/24/23 04:11 Respiratory Rate 15 08/24/23 04:11 Blood Pressure 130/65 08/24/23 04:11 Pulse Oximetry 96 08/24/23 04:50 Oxygen Delivery Nasal Cannula 08/24/23 04:50 Oxygen Flow Rate 1 08/24/23 04:50 Lab Data 08/24/23 00:15 08/24/23 00:15 Labs: Lab Results 08/24/23 08/24/23 Range/Units 00:15 01:58 WBC 8.8 (4.5-10.0) K/mm3 RBC 5.03 (4.2-5.4) M/mm3 Hgb 13.5 (12.0-15.0) g/dL Hct 43.3 (37.0-47.0) % MCV 86.1 (80-100) fl MCH 2
[2023-08-24 00:20] LABS: Basophils Percent Auto 0.2 % (0.2-1.2); Eosinophils Absolute Auto 0.1 K/mm3 (0-0.3); Eosinophils Percent Auto 1.4 % (0-4.4); Hematocrit 43.3 % (37.0-47.0); Hemoglobin 13.5 g/dL (12.0-15.0); Immature Granulocyte Absolute 0.04 K/mm3 (0.00-0.031); Immature Granulocyte Percent A 0.5 % (0-0.5); Lymphocytes Absolute Auto 1.32 K/mm3 (0.9-3.2); Lymphocytes Percent Auto 15.1 % (18.3-44.2); Mean Corpuscular HGB Conc 31.2 g/dl (32-36); Mean Corpuscular Hemoglobin 26.8 pg (26-34); Mean Corpuscular Volume 86.1 fl (80-100); Mean Platelet Volume 10.3 fl (7.4-10.4); Monocytes Absolute Auto 0.6 K/mm3 (0.1-0.6); Monocytes Percent Auto 6.7 % (2.6-8.5); Neutrophils Absolute Auto 6.7 K/mm3 (1.3-6.7); Neutrophils Percent Auto 76.1 % (45.5-73.1); Platelet Count Result 292 k/mm3 (150-375); Red Blood Count 5.03 M/mm3 (4.2-5.4); Red Cell Distribution Width 14.2 % (11.5-14.5); White Blood Count 8.8 K/mm3 (4.5-10.0)
[2023-08-24 00:36] LABS: Alanine Aminotransferase 19 U/L (6-35); Albumin Level 3.8 g/dL (3.5-5.1); Alkaline Phosphatase 81 U/L (38-126); Anion Gap 8 mmol/L (8-16); Aspartate Amino Transferase 24 U/L (14-36); Bilirubin,Total 0.6 mg/dL (0.2-1.3); Blood Urea Nitrogen 16 mg/dL (7-17); Calcium 8.5 mg/dL (8.4-10.2); Carbon Dioxide 24 mmol/L (22-30); Chloride 105 mmol/L (98-107); Estimated CRCL calculation 66 ml/min; Estimated Glomerular Filt Rate 56; Glucose 143 mg/dL (65-110); Lipase 104 U/L (23-300); Potassium 3.8 mmol/L (3.4-5.0); Sodium 137 mmol/L (137-145)
[2023-08-24] MEDS: ONDANSETRON INJ 4 MG/2 ML VIAL IV PUSH (00:37)
[2023-08-24] MEDS: SODIUM CHLORIDE 0.9% IV 1,000 ML 999 ML IV CONT (00:37)
[2023-08-24] MEDS: MORPHINE SULFATE (*CRX) 4 MG/ML INJ IV PUSH ×3 (00:38→03:30)
[2023-08-24 02:21] LABS: Appearance Urine Clear (Clear); Bacteria Urine None Seen /hpf; Bilirubin Urine Negative (Negative); Blood Urine Trace (Negative); Color Urine Yellow (Yellow); Glucose Urine UA Negative (Negative); Ketones Urine Negative (Negative); Leukocyte Esterase Ur Negative LEU/UL (Negative); Nitrate Urine Negative (Negative); Protein Urine Negative (Negative); RBC Urine 0-2 /hpf (0-2); Squamous Epithelial Cell Urine None seen /hpf (Few); Urobilinogen Urine 0.2 mg/dL (<2.0); WBC Urine 0-5 /hpf; pH Urine 6.5 (5.0-9.0)
[2023-08-24 02:22] LABS: Add Urine Microscopic? YES
--- NOTE | 2023-08-24 03:15 | PC.NURSE ---
Patient stated that her pain was coming back up and her nausea was coming back as well. Notified EDP Dr. Dean
[2023-08-24] MEDS: PROCHLORPERAZINE EDISYLATE 10 MG/2 ML VIAL IV PUSH (03:31)
--- NOTE | 2023-08-24 04:51 | PC.NURSE ---
Patient's oxygen was dropping down to upper 80's. Placed patient on 1L/min via nasal cannula and patient's oxygen now in the mid to upper 90s. Patient states she is unaware if she has sleep apnea. Notified EDP Dr. Dean.
== END 2023-08-24 05:45 | disposition home or self-care (01) ==
PROVIDERS: Emergency Medicine; Emergency Provider Emergency Medicine; PCP Nurse Practitioner Family
DX: R11.2 Nausea with vomiting, unspecified (principal); R10.9 Unspecified abdominal pain; M19.90 Unspecified osteoarthritis, unspecified site; J45.909 Unspecified asthma, uncomplicated; I10 Essential (primary) hypertension
CPT/HCPCS: 36415; 74177; 80053; 81001; 83690; 85025; 96361; 96374; 96375; 96376; 99284; J0780; J2270; J2405; J7030; J7050; Q9967

== ENCOUNTER 2023-12-18 19:18 | Emergency (ER) | payer OTHER, SELFPAY ==
--- NOTE | 2023-12-18 19:27 | ED.URI ---
HPI - URI/Sore Throat General Chief Complaint: Upper Respiratory Infection Stated Complaint: cough,congestion Time Seen by Provider: 12/18/23 19:27 Source: patient Mode of arrival: ambulatory Limitations: no limitations History of Present Illness HPI Narrative: 63 yo F with hx of COPD presents with c/o cough , nasal congestion, postnasal drainage for 5 days. Getting progressively worse. Afebrile. C/o nausea and feeling lightheaded. SOB not any worse for her than usual. Coughing up Lots of Sputum . patient reports that she is getting bad coughs every month. Was given antibiotics in August and then again in October . Patient states she was prescribed a new inhaler in August but unsure of the name. States she was told that if is not helping her with her cough she needs to return to her primary care doctor's office. Patient states she is supposed to be getting a referral to see a education technician. All systems reviewed and negative except as noted above. Related Data Home Medications Medication Instructions Recorded Confirmed albuterol sulfate 90 mcg/actuation inhalation 12/18/23 aerosol inhaler Allergies Allergy/AdvReac Type Severity Reaction Status Date / Time No Known Allergies Allergy Verified 12/18/23 19:34 Review of Systems Review of Systems: CONSTITUTIONAL: Denies fever, chills, or sweats. reports fatigue. EYES: Denies visual changes, redness, or discharge. ENT: Denies rhinorrhea. Reports congestion. Denies sore throat, or otalgia. CARDIOVASCULAR: Denies chest pain, palpitations, or edema. RESPIRATORY: Reports cough and dyspnea at baseline. GASTROINTESTINAL: Denies abdominal pain . Reports nausea. Denies vomiting, or diarrhea. GENITOURINARY: Denies dysuria or hematuria. SKIN: Denies rash or itching. MUSCULOSKELETAL: Denies back pain, joint pain, or myalgia. NEUROLOGIC: Denies headache, numbness, or weakness. PSYCHIATRIC: Denies anxiety or depression. All other systems reviewed are negative, except as documented in HPI. [facility] Past Medical History Medical History (Updated 12/18/23 @ 19:49 by Sunshine Larios NP) Arthritis Asthma Bronchitis C. difficile colitis Fractures History of blood clots History of blood transfusion HTN (hypertension) Post-menopausal Surgical History Surgical History History of ankle surgery right side Hx of appendectomy Hx of tonsillectomy Social History Social History Smoking status: Never smoker Second hand tobacco smoke exposure: No Alcohol intake: never Living arrangements: with family Gender identity (if verbalized by the patient): Female Comments At time of signature, agree with nursing past medical, surgical, social and family history. There is no relevant family history pertinent to the presenting complaint. Exam Narrative: GENERAL: This is a well-nourished, well-developed patient, in no apparent distress. HEAD: normocephalic, atraumatic. EYES: PERRL. Sclera clear/white. Vision is grossly intact. EARS: External ears normal, auditory canals clear and without drainage, TMs normal without perforation. Hearing grossly intact. NOSE: External nose normal with mild nasal congestion, clear nasal drainage. THROAT: Mucous membranes moist, posterior pharynx clear. NECK: Neck supple, non-tender without lymphadenopathy, masses or thyromegaly. CARDIOVASCULAR: Regular rate and rhythm without murmurs, gallops, or rubs. RESPIRATORY: Clear to auscultation. Breath sounds equal bilaterally. No wheezes, rales, or rhonchi. SKIN: warm, Dry, intact with no suspicious lesions or rash, good texture and turgor. NEURO: awake, alert, and oriented to person, place and time. There were no obvious focal neurologic abnormalities. EXTREMITIES: No joint tenderness, effusion, or edema noted. Course Course Level of Care: Expre
[2023-12-18 19:28] VITALS: BP 153/90; PULSE 99; RESP 24; TEMP 36.4; O2SAT 98
== END 2023-12-18 19:52 | disposition home or self-care (01) ==
PROVIDERS: Emergency Provider Nurse Practitioner Family; PCP Nurse Practitioner Family
DX: J44.1 Chronic obstructive pulmonary disease with (acute) exacerbation (principal); J01.90 Acute sinusitis, unspecified; Z20.822 Contact with and (suspected) exposure to COVID-19; J45.909 Unspecified asthma, uncomplicated; I10 Essential (primary) hypertension; Z86.2 Personal history of diseases of the blood and blood-forming organs and certain disorders involving the immune mechanism
CPT/HCPCS: 87426; 87804; 99213; G0463

== ENCOUNTER 2024-03-06 09:32 | Outpatient (CLI) | payer OTHER, SELFPAY ==
--- NOTE | ~2024-03-06 | CT_ITS ---
EXAMINATION: CT sinus wo con DATE: 03/06/2024 09:50 INDICATION: Hypertrophy of inferior nasal turbinate. TECHNIQUE: Computed tomography (CT) of the paranasal sinuses was performed without intravenous contra st. Iterative reconstruction technique was employed. The dose-length product was 298.61 mGy-cm. COMPARISON: CT 01/28/2022 FINDINGS: There is a hemangioma in the frontal skull. There is mild mucosal thickening in the frontal recesses and ethmoid sinuses. The sphenoid sinuses are clear. There is mild mucosal thickening in th e maxillary sinuses. The ostiomeatal units are patent. The nasal septum is at the midline. IMPRESSION: 1. Mild mucosal thickening in the paranasal sinuses. Reviewed, dictated and finalized at location A.
== END 2024-03-06 09:33 | disposition home or self-care (01) ==
PROVIDERS: PCP Nurse Practitioner Family; Visit Provider Otolaryngology
DX: J34.3 Hypertrophy of nasal turbinates (principal)
CPT/HCPCS: 70486

== ENCOUNTER 2024-07-03 18:36 | Emergency (ER) | payer OTHER, SELFPAY ==
--- NOTE | 2024-07-03 18:46 | ED.URI ---
HPI - URI/Sore Throat General Chief Complaint: Upper Respiratory Infection Stated Complaint: ear ache and tiredness Time Seen by Provider: 07/03/24 19:19 Source: patient and RN notes reviewed Mode of arrival: ambulatory Limitations: no limitations History of Present Illness HPI Narrative: 63-year-old female presents with concern for 8 day history of sore throat, fatigue, swollen glands, sinus congestion, chest congestion, ear pain and cough. She reports feeling hot but has not had a fever MD elicited complaint: cough and sore throat Related Data Allergies Allergy/AdvReac Type Severity Reaction Status Date / Time No Known Allergies Allergy Verified 07/03/24 19:10 Review of Systems Review of Systems: CONSTITUTIONAL: Report malaise, fatigue sweats. She fever. EYES: Denies visual changes, redness, or discharge. ENT: Reports rhinorrhea, congestion, otalgia and sore throat. CARDIOVASCULAR: Denies chest pain, palpitations, or edema. RESPIRATORY: Reports cough. Denies dyspnea. GASTROINTESTINAL: Denies abdominal pain, nausea, vomiting, diarrhea SKIN: Denies rash or itching. MUSCULOSKELETAL: Reports myalgia. NEUROLOGIC: Denies headache. All systems reviewed & are unremarkable except as noted in HPI and below PMFSH Past Medical History Medical History (Updated 07/03/24 @ 19:25 by Shantell Andino NP) Arthritis Asthma Bronchitis C. difficile colitis Fractures History of blood clots History of blood transfusion HTN (hypertension) Post-menopausal Surgical History Surgical History History of ankle surgery right side Hx of appendectomy Hx of tonsillectomy Social History Social History Smoking status: Never smoker Second hand tobacco smoke exposure: No Alcohol intake: never Living arrangements: with family Gender identity (if verbalized by the patient): Female Comments At time of signature, agree with nursing past medical, surgical, social and family history. There is no relevant family history pertinent to the presenting complaint Exam Narrative: GENERAL: Nontoxic-appearing, well-nourished, and in no acute distress. HEAD: Normocephalic EYES: PERRLA, conjunctivae clear ENT: Nares clear. Mucous membranes moist. TM pearly davenport with dull light reflex bilaterally; no tragal tenderness. Oropharynx not erythematous without lesions. Tonsils not enlarged and without exudate, no drooling, no hoarseness, no trismus, uvula midline. NECK: Supple. No lymphadenopathy CHEST: Clear to auscultation, breath sounds equal. No wheezing, rhonchi, rales, or stridor. No respiratory distress, speaks in full sentences. HEART: Regular rate and rhythm. No murmur heard. SKIN: Warm, dry, no rash. NEURO: Alert and oriented x3. PSYCH: Normal mood and affect Course Course Emergency Course: Patient is aware of diagnosis, understands and agrees to treatment plan. Anticipatory guidance given. Patient agrees to follow-up as directed and is aware of reasons to seek care at the emergency department. Portions of this record may have been created with voice recognition software Level of Care: Express Care Visit Vital Signs Vital signs: Reviewed. MDM - URI/Sore Throat MDM Narrative Medical decision making narrative: Differential diagnosis considered: Trevizo virus, strep pharyngitis, allergic rhinitis, upper respiratory tract infection, sinusitis, rhinosinusitis, nasopharyngitis. viral pharyngitis, otitis media, otitis externa, pneumonia, bronchitis, viral cough syndrome, viral syndrome, and influenza. Exam findings show no acute concerns or changes; patient is non-toxic appearing and is in no distress. Patient is appropriate for outpatient treatment and follow-up. Lab Data Attestation: I reviewed the patient's lab results. Critical Care Time Critical Care Time Critical Care Time: No Discharge Plan Discharge Clinical Impression: Acute bacterial sinusitis Patient Disposition: Home, Self-Care Condition: Stable Instructions: Antibiotic Form, Sinusitis (ED) Additional Instructions: Take medication as prescribed Recommend antihistamine such as Benadryl at night time and Zyrtec or Cristin during the day Also, recommend symptomatic treatment includes: rest, fluids, and increase humidity of the air at home. Recommend Acetaminophen as directed on the bottle to reduce fever, pain, headache. Avoid smoking/second-hand smoke. Please schedule a follow-up visit with your personal physician for further evaluation and treatment within 3-5days. Including recheck and discussion of your blood pressure. If your symptoms persist, change or worsen significantly before you can contact your personal physician then please, without delay, go to the emergency department for further evaluation. Prescriptions: New doxycycline monohydrate 100 mg tablet 100 mg PO BID 7 Days Qty: 14 0RF methylprednisolone [Medrol (Jose)] 4 mg tablets,dose pack See Rx Instructions .ROUTE .COMPLEX Qty: 21 0RF Rx Instructions: orally per package directions Follow-up/Referrals: CLAIRE,KIMBERLY PETERSEN [Primary Care Provider] - Time of Disposition: 19:26
[2024-07-03 18:50] VITALS: BP 136/93; PULSE 79; RESP 20; TEMP 36.6; O2SAT 98
[2024-07-03 19:24] LABS: EDSTREPNEGPOS1 Negative (Negative)
== END 2024-07-03 19:30 | disposition home or self-care (01) ==
PROVIDERS: Emergency Provider Nurse Practitioner; PCP Nurse Practitioner Family
DX: J01.90 Acute sinusitis, unspecified (principal); I10 Essential (primary) hypertension; J45.909 Unspecified asthma, uncomplicated; M19.90 Unspecified osteoarthritis, unspecified site; Z86.19 Personal history of other infectious and parasitic diseases; Z86.2 Personal history of diseases of the blood and blood-forming organs and certain disorders involving the immune mechanism
CPT/HCPCS: 87081; 87880; 99213; G0463

== ENCOUNTER 2024-07-24 19:25 | Emergency (ER) | payer OTHER, SELFPAY ==
[2024-07-24 19:32] VITALS: BP 150/77; PULSE 78; RESP 24; TEMP 36.1; O2SAT 97
--- NOTE | 2024-07-24 19:32 | ED.URI ---
HPI - URI/Sore Throat General Chief Complaint: Upper Respiratory Infection Stated Complaint: sinus infection Time Seen by Provider: 07/24/24 19:35 Source: patient Mode of arrival: ambulatory Limitations: no limitations History of Present Illness HPI Narrative: Lori is a 63-year-old female patient presenting to the clinic today with complaints of possible sinus infection. She reports she has nasal congestion, sinus pressure, headache, sore throat, and nausea from the nasal drainage. Symptoms started again on Tuesday. Was treated for a sinus infection on July 03 and she finished her doxycycline and prednisone and was feeling better but her symptoms have come back. She denies any chest pain or shortness of breath. MD elicited complaint: cough, sore throat, rhinorrhea, nasal congestion, sinus pain and other Related Data Allergies Allergy/AdvReac Type Severity Reaction Status Date / Time No Known Allergies Allergy Verified 07/24/24 19:27 Review of Systems Review of Systems: Pertinent positives per HPI. Patient denies any fever, chills, rash, visual changes, dizziness, shortness of breath, chest pain, palpitations, nausea, vomiting, diarrhea, constipation, abdominal pain, or any urinary issues. [facility]LY [facility] Past Medical History Medical History Arthritis Asthma Bronchitis C. difficile colitis Fractures History of blood clots History of blood transfusion HTN (hypertension) Post-menopausal Surgical History Surgical History History of ankle surgery right side Hx of appendectomy Hx of tonsillectomy Social History Social History Smoking status: Never smoker Second hand tobacco smoke exposure: No Alcohol intake: never Living arrangements: with family Gender identity (if verbalized by the patient): Female Comments At the time of my signature, I reviewed and agree with the nursing past medical, surgical, social, and family history. There is no relevant family history pertinent to the patient complaint. Exam Narrative: General: Well-developed, morbidly obese, in no apparent distress Head: Normocephalic, atraumatic Eyes: Pupils equally round and reactive to light bilaterally, EOM intact, sclera and conjunctive clear, no discharge, lids normal Ears: TMs intact and clear, ear canals clear, no drainage, grossly hearing normal. Nose: Nares patent, yellow nasal discharge, moderate inflammation with white striae, maxillary sinus tenderness. Mouth: Oral pharynx red without lesions or masses, good dentition, MMM. Neck: Supple, trachea midline, no enlargement of anterior or posterior cervical nodes, no thyroid masses or goiter palpable. Cardio: Regular rate and rhythm, s1 and s2 normal, no murmur appreciated. Resp: Clear to auscultation bilaterally, no rhonchi, rales, wheezing or rubs Course Course Emergency Course: Portions of this record may have been created with voice recognition software. Level of Care: Express Care Visit Vital Signs Vital signs: Vital signs reviewed MDM - URI/Sore Throat MDM Narrative Medical decision making narrative: At the time of visit patient is resting comfortably on the exam table. Patient appears to be nontoxic. Plan: I suspect patient has acute bacterial rhinosinusitis. Prescription for Augmentin and prednisone was sent to the pharmacy. Supportive measures were discussed with the patient and they voiced understanding discharge instructions and agrees to treatment plan. Return precautions reviewed Differential Diagnosis Differential diagnosis: Likely upper respiratory infection, otitis media, sinusitis, viral infection, bronchitis, influenza, pharyngitis and other (COVID) Discharge Plan Discharge Clinical Impression: Acute bacterial rhinosinusitis Patient Disposition: Home, Self-Care Condition: Stable Instructions: Antibiotic Form, Rhinosinusitis (ED) Additional Instructions: Take prescription medications only as prescribed-Augmentin and prednisone Increase fluids and stay well hydrated Tylenol/motrin for pain/fever Flonase and OTC antihistamines as directed Vicks vapor rub to open sinuses Sinus rinses for congestion Cepacol spray, cough drops, throat lozenges, warm tea with honey/lemon, gargle salt water to soothe throat BRAT diet for diarrhea Clear liquids x 24 hours then advance as tolerated for nausea/vomiting Go to the ED if you develop a worsening in your condition- high fever not controlled by Tylenol or Motrin, dehydration, weakness, lethargy, shortness of breath, or chest pain. Follow up with your PCP in 3-5 days if symptoms persist. Prescriptions: New prednisone 20 mg tablet 40 mg PO DAILY 5 Days Qty: 10 0RF amoxicillin-pot clavulanate 875-125 mg tablet 1 tablet PO Q12H 10 Days Qty: 20 0RF Follow-up/Referrals: CLAIRE,KIMBERLY PETERSEN [Primary Care Provider] - Time of Disposition: 19:39 Quality NIHSS Nursing Documentation ED NIHSS nursing documentation: reviewed/agree
== END 2024-07-24 19:40 | disposition home or self-care (01) ==
PROVIDERS: Emergency Provider Nurse Practitioner Family; PCP Nurse Practitioner Family
DX: J01.90 Acute sinusitis, unspecified (principal); J45.909 Unspecified asthma, uncomplicated; I10 Essential (primary) hypertension; M19.90 Unspecified osteoarthritis, unspecified site; Z86.2 Personal history of diseases of the blood and blood-forming organs and certain disorders involving the immune mechanism; Z86.19 Personal history of other infectious and parasitic diseases
CPT/HCPCS: 99213; G0463

== ENCOUNTER 2024-07-26 07:28 | Emergency (ER) | payer OTHER, SELFPAY ==
--- NOTE | ~2024-07-26 | XR_ITS ---
Portable chest x-ray Comparison: 07/26/2022, 04/14/2021 Clinical History: Upper respiratory infection Findings: Stable right apical nodular opacity, probably related to the anterior left first rib. Lung s are otherwise clear. Cardiomediastinal silhouette is stable. Bones and soft tissues are unremarkab le. Impression: No acute abnormality. Reviewed, dictated and finalized at location . [employer]ACHINE [employer]PER[employer] Impression: No acute abnormality.
[2024-07-26 07:35] VITALS: BP 186/82; PULSE 92; RESP 20; TEMP 36.6; O2SAT 98
[2024-07-26 07:56] VITALS: O2SAT 100
[2024-07-26] MEDS: ACETAMINOPHEN 500 MG TABLET 1000 MG PO (08:02)
[2024-07-26] MEDS: KETOROLAC 15 MG/ML VIAL (*BKC) IV PUSH (08:02)
[2024-07-26 08:45] VITALS: PULSE 78; RESP 20
[2024-07-26] MEDS: IPRATROPIUM 0.5 MG/ALBUTEROL SULFATE 2.5 MG AMPUL.NEB 3 ML 6 ML INHALATION (08:48)
[2024-07-26 09:01] VITALS: PULSE 75; RESP 20
[2024-07-26 09:48] VITALS: BP 150/56; PULSE 88; RESP 18; O2SAT 96
[2024-07-26 09:50] LABS: Influenza A QL RT-PCR Negative (Negative); Influenza B QL RT-PCR Negative (Negative); RSV RNA, RT-PCR Negative (Negative); SARS-CoV-2 RNA PCR Negative (Negative)
[2024-07-26 09:59] LABS: Basophils Absolute Auto 0.1 K/mm3 (0.0-0.1); Basophils Percent Auto 0.4 % (0.2-1.2); Eosinophils Absolute Auto 0.1 K/mm3 (0-0.3); Eosinophils Percent Auto 1.1 % (0-4.4); Hematocrit 39.2 % (37.0-47.0); Hemoglobin 12.8 g/dL (12.0-15.0); Immature Granulocyte Absolute 0.03 K/mm3 (0.00-0.031); Immature Granulocyte Percent A 0.3 % (0-0.5); Lymphocytes Absolute Auto 5.95 K/mm3 (0.9-3.2); Lymphocytes Percent Auto 49.7 % (18.3-44.2); Mean Corpuscular HGB Conc 32.7 g/dl (32-36); Mean Corpuscular Hemoglobin 27.4 pg (26-34); Mean Corpuscular Volume 83.9 fl (80-100); Mean Platelet Volume 9.8 fl (7.4-10.4); Monocytes Absolute Auto 1.3 K/mm3 (0.1-0.6); Monocytes Percent Auto 11.1 % (2.6-8.5); Neutrophils Absolute Auto 4.5 K/mm3 (1.3-6.7); Neutrophils Percent Auto 37.4 % (45.5-73.1); Platelet Count Result 279 k/mm3 (150-375); Red Blood Count 4.67 M/mm3 (4.2-5.4); Red Cell Distribution Width 14.5 % (11.5-14.5)
[2024-07-26 10:11] LABS: Alanine Aminotransferase 14 U/L (6-35); Alkaline Phosphatase 86 U/L (38-126); Anion Gap 6 mmol/L (4-12); Aspartate Amino Transferase 23 U/L (14-36); Bilirubin,Total 0.9 mg/dL (0.2-1.3); Blood Urea Nitrogen 16 mg/dL (7-17); Carbon Dioxide 27 mmol/L (22-30); Chloride 103 mmol/L (98-107); Estimated CRCL calculation 83 ml/min; Estimated Glomerular Filt Rate > 60; Glucose 119 mg/dL (65-110); Potassium 3.4 mmol/L (3.4-5.0); Sodium 136 mmol/L (137-145)
--- NOTE | 2024-07-26 10:12 | ED_ITS ---
HPI - General Adult General Chief complaint: Upper Respiratory Infection Stated complaint: I feel like I have a virus or COVID Time Seen by Provider: 07/26/24 07:51 History of Present Illness HPI narrative: This is a 63-year-old female presenting ED chief complaint of URI symptoms. P rimary symptoms are sinus pressure and congestion. She has also developed a productive cough. She denies fevers chills nausea vomiting or diarrhea. She has been treated with amoxicillin that was prescribed to her by an urgent care and is on day 2 patient also been taking Claritin with minimal relief. Related Data Allergies Allergy/AdvReac Type Severity Reaction Status Date / Time No Known Allergies Allergy Verified 07/26/24 07:38 [facility]LY [facility] Past Medical History Medical History (Updated 07/26/24 @ 10:35 by José Luis Robles MD) Arthritis Asthma Bronchitis C. difficile colitis Fractures History of blood clots History of blood transfusion HTN (hypertension) Post-menopausal Surgical History Surgical History History of ankle surgery right side Hx of appendectomy Hx of tonsillectomy Social History Social History Smoking status: Never smoker Second hand tobacco smoke exposure: No Alcohol intake: never Living arrangements: with family Gender identity (if verbalized by the patient): Female Exam Narrative: APPEARANCE: No apparent distress. morbidly obese Head: atraumatic. no erythema posterior pharynx or redness of the TMs. EYES: EOMI, NOSE: Atraumatic NECK: Trachea midline RESPIRATORY: tachypneic, expiratory wheezing CARDIOVASCULAR: RRR, No peripheral edema ABDOMINAL: Non-distended Soft non tender MUSCULOSKELETAl: No obvious deformities NEURO: Alert. Moving 4/4 extremities SKIN:: Warm, dry. Normal color PSYCHIATRIC: Normal affect Course Vital Signs Vital signs: Vital Signs Temperature 97.8 F 07/26/24 07:35 Pulse Rate 92 07/26/24 07:35 Respiratory Rate 20 07/26/24 07:35 Blood Pressure 186/82 H 07/26/24 07:35 Pulse Oximetry 98 07/26/24 07:35 Temperature 97.8 F 07/26/24 07:35 Pulse Rate 88 07/26/24 09:48 Respiratory Rate 18 07/26/24 09:48 Blood Pressure 150/56 H 07/26/24 09:48 Pulse Oximetry 96 07/26/24 09:48 Oxygen Delivery Room Air 07/26/24 07:56 Medical Decision Making [facility] Narrative Medical decision making narrative: -Course: This is a 63-year-old female presenting with cough congestion and wheezing on exam. Viral swabs negative. Chest x-ray was clear. White count is 12. Patient given a DuoNeb treatment sharp steroids for wheezing. patient is morbidly obese and appears older than her stated age. Azithromycin will be added to her regimen to err on the side of caution. Azithromycin will be added to cover atypical organisms. On re-evaluation patient has stable vital signs. ambulatory pulse ox performed with no difficulty. Patient will be discharged to follow-up with primary care physician. Given return precautions. -DDX includes but is not limited to: Viral syndrome, URI, bronchitis, pneumonia, mycoplasma -Co-morbidities complicating care: obesity -Hx from independent Sources: @ bedside -Independent interpretation of studies: labs imaging reviewed white count 12 -Interventions: DuoNeb treatment, dexamethasone, Toradol, Tylenol -Shared decision making / Disposition: discharge -RX azithromycin Vital Signs Vital Signs: Vital Signs Temperature 97.8 F 07/26/24 07:35 Pulse Rate 92 07/26/24 07:35 Respiratory Rate 20 07/26/24 07:35 Blood Pressure 186/82 H 07/26/24 07:35 Pulse Oximetry 98 07/26/24 07:35 Temperature 97.8 F 07/26/24 07:35 Pulse Rate 88 07/26/24 09:48 Respiratory Rate 18 07/26/24 09:48 Blood Pressure 150/56 H 07/26/24 09:48 Pulse Oximetry 96 07/26/24 09:48 Oxygen Delivery Room Air 07/26/24 07:56 Lab Data 07/26/24 09:47 07/26/24 09:47 Labs: Lab Results 07/26/24 07/26/24 Range/Units 08:58 09:47 WBC 12.0 H (4.5-10.0) K/mm3 RBC 4.67 (4.2-5.4) M/mm3 Hgb 12.8 (12.0-15.0) g/dL Hct 39.2 (37.0-47.0) % MCV 83.9 (80-100) fl MCH 27.4 (26-34) pg MCHC 32.7 (32-36) g/dl RDW 14.5 (11.5-14.5) % Plt Count 279 (150-375) k/mm3 MPV 9.8 (7.4-10.4) fl Immature Gran % (Auto) 0.3 (0-0.5) % Neut % (Auto) 37.4 L (45.5-73.1) % Lymph % (Auto) 49.7 H (18.3-44.2) % [place] % (Auto) 11.1 H (2.6-8.5) % Eos % (Auto) 1.1 (0-4.4) % Baso % (Auto) 0.4 (0.2-1.2) % Lymph # (Auto) 5.95 H (0.9-3.2) K/mm3 [place] # (Auto) 1.3 H (0.1-0.6) K/mm3 Eos # (Auto) 0.1 (0-0.3) K/mm3 Baso # (Auto) 0.1 (0.0-0.1) K/mm3 Abs Immat Gran (auto) 0.03 (0.00-0.031) K/mm3 Absolute Neuts (auto) 4.5 (1.3-6.7) K/mm3 Absolute Nucleated RBC 0.000 (0.0-0.012) K/mm3 Nucleated RBC % 0.0 (0.0-0.2) % Sodium 136 L (137-145) mmol/L Potassium 3.4 (3.4-5.0) mmol/L Chloride 103 (98-107) mmol/L Carbon Dioxide 27 (22-30) mmol/L Anion Gap 6 (4-12) mmol/L BUN 16 (7-17) mg/dL Creatinine 0.80 (0.7-1.0) mg/dL Estim Creat Clear Calc 83 ml/min Estimated GFR > 60 (59 - ) Glucose 119 H (65-110) mg/dL Calcium 9.0 (8.4-10.2) mg/dL Total Bilirubin 0.9 (0.2-1.3) mg/dL AST 23 (14-36) U/L ALT 14 (6-35) U/L Alkaline Phosphatase 86 (38-126) U/L Total Protein 7.0 (6.3-8.2) g/dL Albumin 4.0 (3.5-5.1) g/dL Influenza A (RT-PCR) Negative (Negative) Influenza B (RT-PCR) Negative (Negative) RSV (RT-PCR) Negative (Negative) SARS-CoV-2 RNA (RT-PCR) Negative (Negative) Discharge Plan Discharge Clinical Impression: Bronchitis Patient Disposition: Home, Self-Care Condition: Stable Instructions: Antibiotic Form, Acute Bronchitis (ED) Additional Instructions: Please complete the antibiotics as instructed. Please use Motrin and Tylenol for symptoms. Use the 0 inhaler for wheezing. Follow-up with your primary care physician in next 2-3 days to ensure your condition continues to improve. If you develop worsening shortness of breath or feel like yourr condition is getting worse and when to return emergency department Prescriptions: New azithromycin 250 mg tablet See Rx Instructions .ROUTE .COMPLEX Qty: 6 0RF Rx Instructions: For 250 mg dose pack: take 500 mg today (day 1), then 250 mg for 4 days (days 2-5) No Action prednisone 20 mg tablet 40 mg PO DAILY 5 Days Qty: 10 0RF amoxicillin-pot clavulanate 875-125 mg tablet 1 tablet PO Q12H 10 Days Qty: 20 0RF Follow-up/Referrals: CLAIRE,KIMBERLY PETERSEN [Primary Care Provider] -
[2024-07-26] MEDS: dexAMETHasone SOD PHOS INJ 10 MG/ML 1 ML VIAL IV PUSH (10:35)
== END 2024-07-26 10:45 | disposition home or self-care (01) ==
PROVIDERS: Emergency Provider Emergency Medicine; PCP Nurse Practitioner Family
DX: J45.909 Unspecified asthma, uncomplicated (principal); Z20.822 Contact with and (suspected) exposure to COVID-19; I10 Essential (primary) hypertension; M19.90 Unspecified osteoarthritis, unspecified site; E66.01 Morbid (severe) obesity due to excess calories; Z68.43 Body mass index [BMI] 50.0-59.9, adult
CPT/HCPCS: 36415; 71045; 80053; 85025; 87637; 94640; 96374; 96375; 99284; A9270; J1100; J1885

== ENCOUNTER 2024-07-31 19:34 | Emergency (ER) | payer OTHER, SELFPAY ==
[2024-07-31 19:42] VITALS: BP 148/90; PULSE 93; RESP 24; TEMP 36.3; O2SAT 98
--- NOTE | 2024-07-31 19:44 | ED_ITS ---
HPI - URI/Sore Throat General Chief Complaint: Upper Respiratory Infection Stated Complaint: bronchitis Time Seen by Provider: 07/31/24 19:44 Source: patient Mode of arrival: ambulatory Limitations: no limitations History of Present Illness HPI Narrative: 63-year-old female with history of bronchitis presents today stating cough is worse, worsening of shortness of breath after finishing prednisone and azithromycin. Patient was seen at urgent care on 07/24 and given Augmentin and prednisone. Was seen at ER 07/26 for cough and shortness of breath and given azithromycin. Patient had normal chest x-ray on 07/26. afebrile. Does not have albuterol or neb machine at home. All systems reviewed and negative except as noted above. Related Data Allergies Allergy/AdvReac Type Severity Reaction Status Date / Time No Known Allergies Allergy Verified 07/31/24 19:43 Review of Systems Review of Systems: CONSTITUTIONAL: Denies fever, chills, or sweats. reports fatigue. EYES: Denies visual changes, redness, or discharge. ENT: Denies rhinorrhea, congestion, sore throat, or otalgia. CARDIOVASCULAR: Denies chest pain, palpitations, or edema. RESPIRATORY: Reports cough and dyspnea. GASTROINTESTINAL: Denies abdominal pain, nausea, vomiting, or diarrhea. GENITOURINARY: Denies dysuria or hematuria. SKIN: Denies rash or itching. MUSCULOSKELETAL: Denies back pain, joint pain, or myalgia. NEUROLOGIC: Denies headache, numbness, or weakness. PSYCHIATRIC: Denies anxiety or depression. All other systems reviewed are negative, except as documented in HPI. [facility] Past Medical History Medical History (Updated 07/31/24 @ 20:06 by Sunshine Larios NP) Arthritis Asthma Bronchitis C. difficile colitis Fractures History of blood clots History of blood transfusion HTN (hypertension) Post-menopausal Surgical History Surgical History History of ankle surgery right side Hx of appendectomy Hx of tonsillectomy Social History Social History Smoking status: Never smoker Second hand tobacco smoke exposure: No Alcohol intake: never Living arrangements: with family Gender identity (if verbalized by the patient): Female Comments At time of signature, agree with nursing past medical, surgical, social and family history. There is no relevant family history pertinent to the presenting complaint. Exam Narrative: GENERAL: This is a well-nourished, well-developed patient, mild resp distress HEAD: normocephalic, atraumatic. EYES: PERRL. Sclera clear/white. Vision is grossly intact. EARS: External ears normal, auditory canals clear and without drainage, TMs normal without perforation. Hearing grossly intact. NOSE: External nose normal with no obvious nasal discharge, nares without redness, no rhinorrhea. THROAT: Mucous membranes moist, posterior pharynx clear. NECK: Neck supple, non-tender without lymphadenopathy, masses or thyromegaly. CARDIOVASCULAR: Regular rate and rhythm without murmurs, gallops, or rubs. RESPIRATORY: Course/wheezy on expiration throughout all lung awad. tachypneic. No rales, or rhonchi. SKIN: warm, Dry, intact with no suspicious lesions or rash, good texture and turgor. NEURO: awake, alert, and oriented to person, place and time. There were no obvious focal neurologic abnormalities. EXTREMITIES: No joint tenderness, effusion, or edema noted. Course Course Level of Care: Express Care Visit Reevaluation(s) Reevaluation #1: after DuoNeb patient reports I am feeling much better . Vital Signs Vital signs: Vital Signs Temperature 36.3 C L 07/31/24 19:42 Pulse Rate 93 07/31/24 19:42 Respiratory Rate 24 H 07/31/24 19:42 Blood Pressure 148/90 H 07/31/24 19:42 Pulse Oximetry 98 07/31/24 19:42 Oxygen Delivery Room Air 07/31/24 19:42 Temperature 36.3 C L 07/31/24 19:45 Pulse Rate 93 07/31/24 19:45 Respiratory Rate 24 H 07/31/24 19:45 Blood Pressure 148/90 H 07/31/24 19:45 Pulse Oximetry 98 07/31/24 19:45 Oxygen Delivery Room Air 07/31/24 19:45 Reviewed MDM - URI/Sore Throat MDM Narrative Medical decision making narrative: Patient given IM Solu-Medrol, DuoNeb. Patient reports improvement. Is ready to be discharged. Prescription for albuterol inhaler, prednisone sent to pharmacy. 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 She has appointment with her primary care physician August 17, is going to try and move put appointment to earlier date. Patient is aware of diagnosis, understands and agrees to treatment plan. Anticipatory guidance given. Patient agrees to follow-up as directed and is aware of reasons to seek care at the emergency department. Portions of this record may have been created with voice recognition software Differential Diagnosis Differential diagnosis: Likely upper respiratory infection, sinusitis, viral infection, bronchitis and influenza Discharge Plan Discharge Clinical Impression: Acute bronchitis Patient Disposition: Home, Self-Care Condition: Stable Instructions: Acute Bronchitis (ED) Additional Instructions: Take medications as prescribed. Start prednisone tomorrow morning. Take Tylenol every 6-8 hours as needed for pain and fever. Follow-up with your doctor at scheduled appointment. For any worsening of your symptoms go to the ER. Prescriptions: New benzonatate 200 mg capsule 200 mg PO TID PRN (Reason: cough) Qty: 20 0RF prednisone 20 mg tablet 40 mg PO DAILY 5 Days Qty: 10 0RF albuterol sulfate 90 mcg/actuation HFA aerosol inhaler 2 puff inhalation Q4-6H PRN (Reason: shortness of breath or wheezing) Qty: 8.5 0RF (DME) Aerochamber Plus Z Stat Spacer See Rx Instructions .Route Qty: 1 0RF Rx Instructions: As directed guaifenesin [Mucinex] 600 mg tablet extended release 12hr 600 mg PO BID 10 Days Qty: 20 0RF No Action amoxicillin-pot clavulanate 875-125 mg tablet 1 tablet PO Q12H 10 Days Qty: 20 0RF Follow-up/Referrals: CLAIRE,KIMBERLY PETERSEN [Primary Care Provider] - Time of Disposition: 20:06
[2024-07-31 19:45] VITALS: BP 148/90; PULSE 93; RESP 24; TEMP 36.3; O2SAT 98
[2024-07-31] MEDS: methylPREDNISolone SOD SUCC 125 MG VIAL IM (19:54)
[2024-07-31] MEDS: IPRATROPIUM 0.5 MG/ALBUTEROL SULFATE 2.5 MG AMPUL.NEB 3 ML INHALATION (19:54)
[2024-07-31 20:10] VITALS: BP 145/69; PULSE 90; RESP 26; TEMP 36.2; O2SAT 97
== END 2024-07-31 20:10 | disposition home or self-care (01) ==
PROVIDERS: Emergency Provider Nurse Practitioner Family; PCP Nurse Practitioner Family
DX: J20.9 Acute bronchitis, unspecified (principal); I10 Essential (primary) hypertension
CPT/HCPCS: 96372; 99213; G0463; J2919

== ENCOUNTER 2024-12-02 08:54 | Emergency (ER) | payer MEDICARE, MEDICAID, SELFPAY ==
--- NOTE | ~2024-12-02 | XR_ITS ---
HISTORY: pain COMPARISON: 01/21/2020 TECHNIQUE: 2 views of the left hip along with an AP view of the pelvis FINDINGS: No acute fracture or dislocation is identified. Superior lateral sclerosis of the bilateral femoral acetabular joint spaces is present consistent wit h osteoarthritis. Intramedullary romy is identified within the left femur. No periprosthetic fracture is appreciated. Degenerative disease within the visualized portion of the lower lumbar spine. Significant degenerative disease is identified within the minimally visualized left knee joint. Age advanced mineralization. IMPRESSION: Significant degenerative disease without acute fracture identified. Reviewed, dictated and finalized at location A. IMPRESSION: Significant degenerative disease without acute fracture identified .
--- NOTE | ~2024-12-02 | CT_ITS ---
History: Left hip pain PROCEDURE: CT lumbar spine without intravenous contrast. COMPARISON: Reference is made to a CT examination of the abdomen and pelvis dated 08/24/2023 TECHNIQUE: Multiple contiguous axial images of the lumbar spine were performed without the administration of int ravenous contrast. DLP: 1703 mGy-cm FINDINGS: No acute compression fractures are present. At the level of L2/L3, is a broad-based disc protrusion without significant mass effect on the spinal canal. Mass effect on the left neural foramen is detected. No significant degenerative disease is identified within the remainder of the lumbar spine, within th e limitations of a CT examination. Impression: No acute compression fracture with degenerative disease at the level of L2/L3, as detailed above. Follow-up nonemergently with noncontrast enhanced MRI for a more detailed characterization. Reviewed, dictated and finalized at location A. Impression: No acute compression fracture with degenerative disease at the level of L2/L3, as detailed above. Follow-up nonemergently with noncontrast enhanced MRI for a more detailed alfred cterization.
--- OUTSIDE RECORDS SUMMARY | 2024-12-02 08:57 | XMS_ITS | Referral Summary ---
Author Organization [facility] Address [address] [place] [address] Care Team Providers Care Slot Manager Name Role Phone Sunshine Blancas NP Primary Care Provider [phone] Allergies No known active allergies Medications cyclobenzaprine (FLEXERIL) 10 mg tablet Take 1 tablet (10 mg total) by mouth 3 (three) times a day as needed for muscle spasms 15 tablet 07/16/2021 Active ibuprofen (ADVIL,MOTRIN) 600 mg tablet Take 1 tablet (600 mg total) by mouth every 8 (eight) hours as needed for pain 20 tablet 07/16/2021 Active Active Problems Problem Noted Date Diagnosed Date Closed fracture of rib 11/04/2010 Closed fracture of femur 11/04/2010 Social History Tobacco Use Types Packs/Day Years Used Date Smoking Tobacco: Never Assessed Personal Safety Answer Date Recorded Getting School Help Needed Not on file 11/18 Comments Unknown Sex and Gender Information Value Date Recorded Sex Assigned at Not on file Legal Sex Female 6:58 PM VALIDATION INTERN Gender Identity Not on file Sexual Orientation Not on file Last Filed Vital Signs Vital Sign Reading Time Taken Comments Blood Pressure 165/109 07/16/2021 4:31 PM VALIDATION INTERN Pulse 86 07/16/2021 4:31 PM VALIDATION INTERN Temperature 36.7 C (98 F) 07/16/2021 3:13 PM VALIDATION INTERN Respiratory Rate 20 07/16/2021 4:31 PM VALIDATION INTERN Oxygen Saturation 97% 07/16/2021 4:31 PM VALIDATION INTERN Inhaled Oxygen Concentration - - Weight 141.2 kg (311 lb 4.6 oz) 07/16/2021 3:13 PM VALIDATION INTERN Height 157.5 cm (5' 2 ) 07/16/2021 3:13 PM VALIDATION INTERN Body Mass Index 56.94 07/16/2021 3:13 PM VALIDATION INTERN Plan of Treatment Not on file Insurance [facility] Care Teams Slot Manager Relationship Specialty Start Date End Date Sunshine Blancas NP [address] [place] [id number] PCP - General Nurse Practitioner 07/16/21
--- OUTSIDE RECORDS SUMMARY | 2024-12-02 08:57 | XMS_ITS | Clinical Summary ---
Author Organization [facility] Address [address] [place] [id number] Care Team Providers Care Digital Archivist Name Role Phone Sunshine Blancas TRANSIT VEHICLE INSPECTOR Primary Care Provider Allergies No known active allergies Medications multi vitamin/minera ls (THERA-M ENHANCED) tablet Take 1 tablet by mouth daily. Active Spacer/Aero-Ho lding Chambers ([facility]) Device see administration instructions. 4 Active Active Problems Problem Noted Date Diagnosed Date DDD (degenerative disc disease), lumbar 07/23/20 21 Chronic right shoulder pain 07/23/2021 Non compliance w medication regimen 01/07/2021 Non compliance with medical treatment 01/07/2021 Chronic pain of right knee 02/28/2020 Proteinuria, unspecified type 01/07/2020 Chronic bilateral low back pain with right-sided sciatica 01/07/2020 Leg swelling 01/07/2020 PND (paroxysmal nocturnal dyspnea) 01/07/2020 SOB (shortness of breath) on exertion 01/07/2020 Osteoarthritis (arthritis due to wear and tear o f joints) 09/20/2017 Mammogram declined 06/09/2017 Obesity, morbid, BMI 50 or higher 06/09/2017 Pap smear of cervix declined 06/09/2017 Allergic rhinitis 04/29/2017 Vitamin D deficiency 12/27/2016 Other urinary incontinence 12/03/2016 Hypertensive disorder 04/28/2015 Polyp of corpus uteri 08/30/2013 Hyperlipidemia 08/14/2013 Abnormal finding on mammography 08/14/2013 Resolved Problems Problem Noted Date Diagnosed Date Resolved Date Post-viral cough syndrome 12/10/2023 Neuropathy 01/07/2021 08/17/2024 Closed fracture dislocation of right elbow, initial encounter 01/23/2020 08/17/2024 Elevated glucose 01/16/2020 08/17/2024 Elevated hemoglobin A1c 01/16/202008/05 UTI (urinary tract infection) 10/10/2019 07/23/2021 Dizziness 10/10/2019 09/29/2023 Acute non-recurrent frontal sinusitis 02/07/2019 07/23/2021 Hospital discharge follow-up 11/10/2018 05/16/2020 Contusion of abdominal wall, initial encounter 11/10/2018 08/17/2024 Acute pulmonary embolism wit hout acute cor pulmonale, unspecified pulmonary embolism type ([facility]) 11/10/2018 08/17/2024 Cough 11/10/2018 07/23/2021 Hip pain, right 09/20/2017 09/29/2023 Hyperglycemia 06/09/2017 09/29/2023 Breast lump 08/30/2013 08/17/2024 Hematuria 08/14/2013 08/17/2024 Abdominal pain 08/14/2013 07/23/2021 Closed fracture of rib 11/04/201008/17 Closed fracture of femur 11/04/2010 Encounters Date Type Department Care Team Description 11/06/2024 Travel 09/18/2024 Scan [facility] Scanned, [facility] from Last 3 Months Immunizations Name Administration Dates Next Due Fluzone (IIV3, Trivalent, 0. 5 ML Prefilled Syringe) 08/17/2024 Fluzone 6 Months+ Quad (0.5 mL Prefilled Syringe) 09/29/2023,06/11/2022,07/23/2021, 020,06/29/2019 Influenza (Generic) 06/09/2017 Influenza Adult (Generic) 06/06/2018,09/10/2012 PFIZER COVID-19 (12+) MRNA, LNP-S, PF, AMEE-SUCROSE, 30 MCG/0.3 ML (COMIRNATY) 08/17/2024,09/27/2023 PFIZER COVID-19 (PETER CAP), MRNA, LNP-S, PF, 30 MCG/0.3 ML AMEE-SUCROSE, IM 04/15/2022 Tdap (Generic) 12/06/2014 Family History Medical History Relation Comments Cancer Brother lymphoma Heart Father Cancer Maternal Grandfather Heart Maternal Grandmother Cancer Mother bladder Heart Mother Heart Paternal Grandmother Relation Status Comments Brother Father Maternal Grandfather Maternal Grandmother Mother Paternal Grandmother Social History Tobacco Use Types Packs/Day Years Used Date Smoking Tobacco: Never Smokeless Tobacco: Never Tobacco Cessation:Counseling Given: Not Answered Alcohol Use Standard Drinks/Week Comments No 0 (1 standard drink = 0.6 oz pur e alcohol) AUDIT-C Answer Date Recorded Frequency of Alcohol Consumption Never 10/19/2018 Average Number of Drinks Not on file 019 Frequency of Binge Drinking Not on file 10/06 PHQ-2 Answer Date Recorded Patient Health Questionnaire-2 Score 1 09/29/2023 Comments No Sex and Gender Information Value Date Recorded Sex Assigned at Not on file Legal Sex Female 5:58 PM CDT Gender Identity Not on file Sexual Orientation Not on file Last Filed Vital Signs Vital Sign Reading Time Taken Comments Blood Pressure 134/80 08/17/2024 10:52 AM ASSISTANT BANQUET MANAGER Pulse 90 08/17/2024 10:52 AM ASSISTANT BANQUET MANAGER Temperature 36.3 C (97.4 F) 08/17/2024 10:52 AM ASSISTANT BANQUET MANAGER Respiratory Rate 24 08/17/2024 10:5 2 AM ASSISTANT BANQUET MANAGER Oxygen Saturation 96% 08/17/2024 10: 52 AM ASSISTANT BANQUET MANAGER Inhaled Oxygen Concentration - - Weight 139.6 kg (307 lb 12.8 oz) 2023 10:52 AM ASSISTANT BANQUET MANAGER Height 157.5 cm (5' 2 ) 08/17/2024 10:5 2 AM ASSISTANT BANQUET MANAGER Body Mass Index 56.3 08/17/2024 10:52 AM ASSISTANT BANQUET MANAGER Plan of Treatment Health Maintenance Due Date Last Done Comments Colorectal Cancer Screening Colonoscopy (10 Years) 1959 Mammogram Screening 1999 Zoster Vaccines (1 of 2) 2009 RSV Immunization or 60+ Years (1 - Risk 60-74 years 1-dose series) 2019 PHQ-2 ([facility]) 09/05/2024 09/29/2023 Pneumococcal Vaccine: 65+ Years (1 of 1 - PCV) 2024 DTaP, Tdap and Td Vaccines (2 - Td or Tdap) 12/06/2024 12/06/2014 Dexa Scan (General) 12/26/2024 Postpone d from 2024 (Patient Refused) COVID-19 Vaccine ( season) 2025 08/17/2024, 09/27/2023, 04/15/2022, Additional history exists Hepatitis C Completed 09/29/2023 Influenza Adult Completed 08/17/2024, 09/06, 06/11/2022, Additional history exists Meningococcal B Vaccine Aged Out No l onger eligible based on patient's age to complete this topic Meningococcal Vaccine Aged Out No aby bel eligible based on patient's age to complete this topic Pneumococcal Vaccine: Pediatrics (0 to 5 Years) and At-Risk Patients (6 to 64 Years) Aged Out No longer eligible based on patient's age to complete this topic RSV Immunizations Under 20 Months Aged Out No longer eligible based on patient's age to complete this topic Procedures Procedure Name Priority Date/Time Associated Diagnosis Comments HEPATITIS C ANTIBODY Routine 09/29/2023 10:29 AM ASSISTANT BANQUET MANAGER Encounter for hepatitis C screening test for low risk patient from Last 3 Months or Most Recently Relevant to Health Maintenance Results * HEPATITIS C ANTIBODY ([facility] ONLY) (09/29/2023 10:29 AM ASSISTANT BANQUET MANAGER) HEPATITIS C AB NON-REACTI VE NON-REACT MICHAEL 09/29/2023 7:15 PM ASSISTANT BANQUET MANAGER [facility] Comment: ANTIBODIES TO HCV NOT DETECTED. DOES NOT EXCLUDE THE POSSIBILITY OF EXPOSURE TO HCV. 09/29/2023 10:2 9 AM ASSISTANT BANQUET MANAGER [facility] Final Result [facility] [address] [place] [address], [id number] from Last 3 Months or Most Recently Relevant to Health Maintenance Insurance [employer] [place] [address] [place] [phone] MEDICAID Care Teams Digital Archivist Relationship Specialty Start Date End Date Sunshine Blancas FNP [address] [place] [address] PCP - General 12/22/16
--- OUTSIDE RECORDS SUMMARY | 2024-12-02 08:57 | XMS_ITS | Clinical Summary ---
Author Organization [facility] Address [address] [place] [address] Care Team Providers Care Sr Technical Sales Consultant Name Role Phone Sunshine Blancas NP Primary Care Provider [phone] Allergies No known active allergies Medications cyclobenzaprine [...] on file Legal Sex Female 6:58 PM SMALL PARTS SHAPER OPERATOR Gender Identity Not on file Sexual Orientation Not on file Last Filed Vital Signs Vital Sign Reading Time Taken Comments Blood Pressure 165/109 07/16/2021 4:31 PM SMALL PARTS SHAPER OPERATOR Pulse 86 07/16/2021 4:31 PM SMALL PARTS SHAPER OPERATOR Temperature 36.7 C (98 F) 07/16/2021 3:13 PM SMALL PARTS SHAPER OPERATOR Respiratory Rate 20 07/16/2021 4:31 PM SMALL PARTS SHAPER OPERATOR Oxygen Saturation 97% 07/16/2021 4:31 PM SMALL PARTS SHAPER OPERATOR Inhaled Oxygen Concentration - - Weight 141.2 kg (311 lb 4.6 oz) 07/16/2021 3:13 PM SMALL PARTS SHAPER OPERATOR Height 157.5 cm (5' 2 ) 07/16/2021 3:13 PM SMALL PARTS SHAPER OPERATOR Body Mass Index 56.94 07/16/2021 3:13 PM SMALL PARTS SHAPER OPERATOR Plan of Treatment Not on file Insurance [facility] Care Teams Sr Technical Sales Consultant Relationship Specialty Start Date End Date Sunshine Blancas NP [address] [place] [id number] PCP - General Nurse Practitioner 07/16/21
[2024-12-02 09:23] VITALS: BP 159/105; PULSE 79; RESP 16; TEMP 36.4; O2SAT 98
[2024-12-02 10:31] VITALS: BP 161/87; PULSE 70; RESP 18; O2SAT 99
--- OUTSIDE RECORDS SUMMARY | 2024-12-02 10:45 | XMS_ITS | Referral Summary ---
Author Organization [facility] Address [address] [place] [address] Care Team Providers Care Associate Sales Manager Name Role Phone Sunshine Blancas NP Primary Care Provider [phone] Allergies No known active allergies Medications cyclobenzaprine [...] on file Legal Sex Female 6:58 PM PHOTOGRAPHIC SPECIALIST Gender Identity Not on file Sexual Orientation Not on file Last Filed Vital Signs Vital Sign Reading Time Taken Comments Blood Pressure 165/109 07/16/2021 4:31 PM PHOTOGRAPHIC SPECIALIST Pulse 86 07/16/2021 4:31 PM PHOTOGRAPHIC SPECIALIST Temperature 36.7 C (98 F) 07/16/2021 3:13 PM PHOTOGRAPHIC SPECIALIST Respiratory Rate 20 07/16/2021 4:31 PM PHOTOGRAPHIC SPECIALIST Oxygen Saturation 97% 07/16/2021 4:31 PM PHOTOGRAPHIC SPECIALIST Inhaled Oxygen Concentration - - Weight 141.2 kg (311 lb 4.6 oz) 07/16/2021 3:13 PM PHOTOGRAPHIC SPECIALIST Height 157.5 cm (5' 2 ) 07/16/2021 3:13 PM PHOTOGRAPHIC SPECIALIST Body Mass Index 56.94 07/16/2021 3:13 PM PHOTOGRAPHIC SPECIALIST Plan of Treatment Not on file Insurance [facility] Care Teams Associate Sales Manager Relationship Specialty Start Date End Date Sunshine Blancas NP [address] [place] [phone] PCP - General Nurse Practitioner 07/16/21
--- OUTSIDE RECORDS SUMMARY | 2024-12-02 10:45 | XMS_ITS | Clinical Summary ---
Author Organization [facility] Address [address] [place] [id number] Care Team Providers Care Human Resources Executive Assistant Name Role Phone Sunshine Blancas HUMAN RESOURCES EXECUTIVE ASSISTANT Primary Care Provider [phone] Allergies No known active allergies Medications multi vitamin/minera ls (THERA-M ENHANCED) tablet Take 1 tablet by mouth daily. Active Spacer/Aero-Ho lding Chambers ([facility]) Device see administration instructions. 4 Active [...] acute cor pulmonale, unspecified pulmonary embolism type ([facility]) 11/10/2018 08/17/2024 Cough 11/10/2018 07/23/2021 Hip pain, [...] Comments Blood Pressure 134/80 08/17/2024 10:52 AM RESPOOLER Pulse 90 08/17/2024 10:52 AM RESPOOLER Temperature 36.3 C (97.4 F) 08/17/2024 10:52 AM RESPOOLER Respiratory Rate 24 08/17/2024 10:5 2 AM RESPOOLER Oxygen Saturation 96% 08/17/2024 10: 52 AM RESPOOLER Inhaled Oxygen Concentration - - Weight 139.6 kg (307 lb 12.8 oz) 2023 10:52 AM RESPOOLER Height 157.5 cm (5' 2 ) 08/17/2024 10:5 2 AM RESPOOLER Body Mass Index 56.3 08/17/2024 10:52 AM RESPOOLER Plan of Treatment Health Maintenance Due Date Last Done Comments Colorectal Cancer Screening Colonoscopy (10 Years) 1959 Mammogram Screening 1999 Zoster Vaccines (1 of 2) 2009 RSV Immunization or 60+ Years (1 - Risk 60-74 years 1-dose series) 2019 PHQ-2 ([facility]) 09/05/2024 09/29/2023 Pneumococcal Vaccine: 65+ Years (1 [...] HEPATITIS C ANTIBODY Routine 09/29/2023 10:29 AM RESPOOLER Encounter for hepatitis C screening test for low risk patient from Last 3 Months or Most Recently Relevant to Health Maintenance Results * HEPATITIS C ANTIBODY ([facility] ONLY) (09/29/2023 10:29 AM RESPOOLER) HEPATITIS C AB NON-REACTI VE NON-REACT MICHAEL 09/29/2023 7:15 PM RESPOOLER [facility] Comment: ANTIBODIES TO HCV NOT DETECTED. DOES NOT EXCLUDE THE POSSIBILITY OF EXPOSURE TO HCV. 09/29/2023 10:2 9 AM RESPOOLER [facility] Final Result [facility] [address] [place] [address], [id number] from Last 3 Months or Most Recently Relevant to Health Maintenance Insurance [employer] Care Teams Human Resources Executive Assistant Relationship Specialty Start Date End Date Sunshine Blancas FNP [address] [place] [address] PCP - General 12/22/16
--- OUTSIDE RECORDS SUMMARY | 2024-12-02 10:45 | XMS_ITS | Clinical Summary ---
Author Organization [facility] Address [address] [place] [address] Care Team Providers Care Chief Crna Name Role Phone Sunshine Blancas NP Primary Care Provider [phone] Allergies No known active allergies Medications cyclobenzaprine [...] on file Legal Sex Female 6:58 PM SVP CHIEF MARKETING OFFICER Gender Identity Not on file Sexual Orientation Not on file Last Filed Vital Signs Vital Sign Reading Time Taken Comments Blood Pressure 165/109 07/16/2021 4:31 PM SVP CHIEF MARKETING OFFICER Pulse 86 07/16/2021 4:31 PM SVP CHIEF MARKETING OFFICER Temperature 36.7 C (98 F) 07/16/2021 3:13 PM SVP CHIEF MARKETING OFFICER Respiratory Rate 20 07/16/2021 4:31 PM SVP CHIEF MARKETING OFFICER Oxygen Saturation 97% 07/16/2021 4:31 PM SVP CHIEF MARKETING OFFICER Inhaled Oxygen Concentration - - Weight 141.2 kg (311 lb 4.6 oz) 07/16/2021 3:13 PM SVP CHIEF MARKETING OFFICER Height 157.5 cm (5' 2 ) 07/16/2021 3:13 PM SVP CHIEF MARKETING OFFICER Body Mass Index 56.94 07/16/2021 3:13 PM SVP CHIEF MARKETING OFFICER Plan of Treatment Not on file Insurance [facility] Care Teams Chief Crna Relationship Specialty Start Date End Date Sunshine Blancas NP [address] [place] [phone] PCP - General Nurse Practitioner 07/16/21
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
[2024-12-02] MEDS: HYDROcodone/acetaminophen (*CRX) 5-325 MG TABLET 1 TAB PO (12:03)
[2024-12-02 12:11] LABS: Basophils Absolute Auto 0.1 K/mm3 (0.0-0.1); Basophils Percent Auto 0.7 % (0.2-1.2); Eosinophils Absolute Auto 0.2 K/mm3 (0-0.3); Eosinophils Percent Auto 2.3 % (0-4.4); Hematocrit 40.5 % (37.0-47.0); Hemoglobin 12.9 g/dL (12.0-15.0); Immature Granulocyte Absolute 0.02 K/mm3 (0.00-0.031); Immature Granulocyte Percent A 0.3 % (0-0.5); Lymphocytes Absolute Auto 3.23 K/mm3 (0.9-3.2); Lymphocytes Percent Auto 42.1 % (18.3-44.2); Mean Corpuscular HGB Conc 31.9 g/dl (32-36); Mean Corpuscular Hemoglobin 27.4 pg (26-34); Mean Platelet Volume 10.2 fl (7.4-10.4); Monocytes Absolute Auto 0.8 K/mm3 (0.1-0.6); Monocytes Percent Auto 10.7 % (2.6-8.5); Neutrophils Absolute Auto 3.4 K/mm3 (1.3-6.7); Neutrophils Percent Auto 43.9 % (45.5-73.1); Platelet Count Result 279 k/mm3 (150-375); Red Blood Count 4.71 M/mm3 (4.2-5.4); Red Cell Distribution Width 13.7 % (11.5-14.5); White Blood Count 7.7 K/mm3 (4.5-10.0)
[2024-12-02 12:18] LABS: Add Urine Microscopic? YES; Appearance Urine Clear (Clear); Bacteria Urine None Seen /hpf; Bilirubin Urine Negative (Negative); Blood Urine Trace (Negative); Color Urine Yellow (Yellow); Glucose Urine UA Negative (Negative); Ketones Urine Negative (Negative); Leukocyte Esterase Ur Trace LEU/UL (Negative); Nitrate Urine Negative (Negative); Non Pathogenic Casts 0-2; Protein Urine Negative (Negative); Squamous Epithelial Cell Urine Occasional /hpf (Few); Urobilinogen Urine 0.2 mg/dL (<2.0); WBC Urine 0-5 /hpf (0-3); pH Urine 5.5 (5.0-9.0)
[2024-12-02 12:20] LABS: Alanine Aminotransferase 16 U/L (6-35); Albumin Level 4.2 g/dL (3.5-5.1); Alkaline Phosphatase 83 U/L (38-126); Anion Gap 8 mmol/L (4-12); Aspartate Amino Transferase 23 U/L (14-36); Bilirubin,Total 0.6 mg/dL (0.2-1.3); Blood Urea Nitrogen 17 mg/dL (7-17); Carbon Dioxide 26 mmol/L (22-30); Chloride 104 mmol/L (98-107); Creatine Kinase 102 U/L (30-135); Estimated CRCL calculation 80 ml/min; Estimated Glomerular Filt Rate > 60; Glucose 102 mg/dL (65-110); Magnesium 1.9 mg/dL (1.6-2.3); Potassium 4.1 mmol/L (3.4-5.0); Sodium 138 mmol/L (137-145)
[2024-12-02] MEDS: KETOROLAC 30 MG/ML VIAL (*BKC) IM (14:11)
[2024-12-02] MEDS: diazePAM (*CRX) 5 MG TABLET PO (14:11)
[2024-12-02 14:44] VITALS: BP 195/74; PULSE 71; RESP 20; O2SAT 98
== END 2024-12-02 14:46 | disposition home or self-care (01) ==
PROVIDERS: Emergency Provider Student in an Organized Health Care Education/Training Program; PCP Nurse Practitioner Family
DX: M54.42 Lumbago with sciatica, left side (principal); M16.12 Unilateral primary osteoarthritis, left hip; M51.369 Other intervertebral disc degeneration, lumbar region without mention of lumbar back pain or lower extremity pain; R31.29 Other microscopic hematuria; E66.01 Morbid (severe) obesity due to excess calories; Z68.43 Body mass index [BMI] 50.0-59.9, adult; J45.909 Unspecified asthma, uncomplicated; I10 Essential (primary) hypertension; M19.90 Unspecified osteoarthritis, unspecified site
CPT/HCPCS: 36415; 72131; 73502; 80053; 81001; 82550; 83735; 85025; 96372; 99284; A9270; J1885

== ENCOUNTER 2025-02-12 17:35 | Emergency (ER) | payer MEDICARE, MEDICAID, SELFPAY ==
--- NOTE | ~2025-02-12 | XR_ITS ---
XR chest 2V Ordering provider: Jake Atkinson APRN History: 64 years Female with . cough, chest congestion, wheezing for 4 days . Comparison: July 26, 2024 FINDINGS: MEDIASTINUM: The cardiac silhouette is not enlarged. LUNGS: No infiltrates, effusions or pneumothorax. OTHER: No free air under the diaphragm. Degenerative changes of the spine. IMPRESSION: No acute cardiopulmonary pathology Reviewed, dictated and finalized at location A.
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
--- OUTSIDE RECORDS SUMMARY | 2025-02-12 17:53 | XMS_ITS | Referral Summary ---
Author Organization [facility] Address [address] [place] [address] Care Team Providers Care Instructor Ballroom Dancing Name Role Phone Sunshine Blancas NP Primary Care Provider [phone] Allergies No known active allergies Medications cyclobenzaprine [...] on file Legal Sex Female 6:58 PM CORE FINISHER Gender Identity Not on file Sexual Orientation Not on file Last Filed Vital Signs Vital Sign Reading Time Taken Comments Blood Pressure 165/109 07/16/2021 4:31 PM CORE FINISHER Pulse 86 07/16/2021 4:31 PM CORE FINISHER Temperature 36.7 C (98 F) 07/16/2021 3:13 PM CORE FINISHER Respiratory Rate 20 07/16/2021 4:31 PM CORE FINISHER Oxygen Saturation 97% 07/16/2021 4:31 PM CORE FINISHER Inhaled Oxygen Concentration - - Weight 141.2 kg (311 lb 4.6 oz) 07/16/2021 3:13 PM CORE FINISHER Height 157.5 cm (5' 2) 07/16/2021 3:13 PM CORE FINISHER Body Mass Index 56.94 07/16/2021 3:13 PM CORE FINISHER Plan of Treatment Not on file Insurance [facility] Care Teams Instructor Ballroom Dancing Relationship Specialty Start Date End Date Sunshine Blancas NP [address] [place] [phone] PCP - General Nurse Practitioner 07/16/21
--- OUTSIDE RECORDS SUMMARY | 2025-02-12 17:53 | XMS_ITS | Clinical Summary ---
Author Organization [facility] Address [address] [place] [address] Care Team Providers Care Ict Business Development Manager Name Role Phone Sunshine Blancas NP Primary Care Provider [phone] Allergies No known active allergies Medications cyclobenzaprine [...] on file Legal Sex Female 6:58 PM SOLAR ENERGY INSTALLATION MANAGER Gender Identity Not on file Sexual Orientation Not on file Last Filed Vital Signs Vital Sign Reading Time Taken Comments Blood Pressure 165/109 07/16/2021 4:31 PM SOLAR ENERGY INSTALLATION MANAGER Pulse 86 07/16/2021 4:31 PM SOLAR ENERGY INSTALLATION MANAGER Temperature 36.7 C (98 F) 07/16/2021 3:13 PM SOLAR ENERGY INSTALLATION MANAGER Respiratory Rate 20 07/16/2021 4:31 PM SOLAR ENERGY INSTALLATION MANAGER Oxygen Saturation 97% 07/16/2021 4:31 PM SOLAR ENERGY INSTALLATION MANAGER Inhaled Oxygen Concentration - - Weight 141.2 kg (311 lb 4.6 oz) 07/16/2021 3:13 PM SOLAR ENERGY INSTALLATION MANAGER Height 157.5 cm (5' 2) 07/16/2021 3:13 PM SOLAR ENERGY INSTALLATION MANAGER Body Mass Index 56.94 07/16/2021 3:13 PM SOLAR ENERGY INSTALLATION MANAGER Plan of Treatment Not on file Insurance [facility] Care Teams Ict Business Development Manager Relationship Specialty Start Date End Date Sunshine Blancas NP [address] [place] [phone] PCP - General Nurse Practitioner 07/16/21
--- OUTSIDE RECORDS SUMMARY | 2025-02-12 17:56 | XMS_ITS | Continuity of Care Document ---
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 Name Role Phone Wilson Arriaza MD Unavailable Unavailable Allergies, Adverse Reactions, Alerts Substance Reaction Status Criticality No Known Allergies Active No Inform ation Medications Medication Instructions Dosage Effective Dates (start - stop) Status Comments Norvasc 10 mg tablet take 1 tablet by oral route every day 10 MG - Active losartan 100 mg tablet take 1 tablet by oral route every day 100 MG - Active ibuprofen 800 mg tablet take 1 tablet by oral route every 6 - 8 hours with food as needed 800 MG - Active PRN for pain prednisone 20 mg tablet take 3 Tablet by oral route every day 60 MG - Active [place] 5 mg-325 mg tablet take 1 tablet by oral route every 6 hours as needed for pain - Active PRN for pain, avoid driving or operate machines Procedures Procedure Date OFFICE/OUTPATIENT VISIT, EST OFFICE/OUTPATIENT [...] Copied on Encounter OFFICE/OUTPA TIENT VISIT, EST [facility], [address], [place], [place], [address], [place] tel:[phone] [facility] Medicine HTN (chief complaint) hematuria1 (chief complaint) shoulder pain1 (chief complaint) Adhesive capsulitis of right shoulderHematuriaEs sential (primary) hypertension May- 6 Arsalan Rachel. [address], [address], [place], [place], [address] , [place]. tel:[phone] Referring Provider: Susi Celeste [address], [place], [place], [address]. tel:[phone] OFFICE/OUTPA TIENT VISIT, [facility], [address], [place], [place], [address], [place] tel:[phone] [facility] HLP (chief complaint) hematuria1 (chief complaint) low D (chief complaint) HTN1 (chief complaint) sinus (chief complaint) HematuriaMixed hyperlipidemiaMetab olic syndromeEssential (primary) hypertension Lalit- 6 Arsalan Rachel. [address], [address], [place], [place], [address] , [place]. tel:[phone] Referring Provider: Ssui Celeste [address], [place], [place], [address]. tel:[phone] PREV VISIT, EST, AGE 40-64 [facility], [address], [place], [place], [address], [place] tel:[phone] [facility] Medicine PHysical (chief complaint) Encounter for general adult medical exam w abnormal findingsEssential (primary) hypertensionBody mass index (BMI) 45.0-49.9, adultHyperlipidemia , unspecified 6 Arsalan Stafford [address], [address], [place], [place], [address] , [place]. tel:[phone] Referring Provider: Susi Cel[address], [place], [place], [address]. tel:[phone] OFFICE/OUTPA TIENT VISIT, [facility], [address], [place], [place], [address], [place] tel:[phone] [facility] Medicine sinus (chief complaint) HLP (chief complaint) HTN (chief complaint) Acute sinusitisMixed hyperlipidemiaEssen tial (primary) hypertension Nov-0 6 Arsalan Stafford [address], [address], [place], [place], [address] , [place]. tel:[phone] Referring Provider: Susi Celeste [address], [place], [place], [address]. tel:[phone] OFFICE/OUTPA TIENT VISIT, [facility], [address], [place], [place], [address], [place] tel:[phone] [facility] HTN1 (chief complaint) HLP (chief complaint) joint pain (chief complaint) Essential (primary) hypertensionMixed hyperlipidemiaBody mass index (BMI) 50-59.9 , adultChronic pain syndrome 6 Arsalan Stafford [address], [address], [place], [place], [address] , [place]. [phone] Referring Provider: Susi Cel[address], [place], [place], [address]. tel:[phone] OFFICE/OUTPA TIENT VISIT, [facility], [address], [place], [place], [address], [place] tel:[phone] [facility] Medicine HTN (chief complaint) ankle pain (chief complaint) HLP (chief complaint) Dietary surveillance and counselingUnspecifi ed essential hypertensionHyperli pidaemiaAnkle pain Sep-2 2201 5 Arsalan Stafford [address], [address], [place], [place], [address] , [place]. tel:[phone] Referring Provider: Susi Celeste [address], [place], [place], [address]. tel:[phone] OFFICE/OUTPA TIENT VISIT, [facility], [address], [place], [place], [address], [place] tel:[phone] [facility] HTN (chief complaint) ankle pain (chief complaint) Dietary surveillance and counselingBP - High blood pressureBMI 50.0 to 59.9Ankle pain 5 Arsalan Rachel. [address], [address], [place], [place], [address] , [place]. [phone] Referring Provider: Susi Celeste [address], [place], [place], [address]. tel:[phone] PREV VISIT, EST, AGE 40-64 [facility], [address], [place], [place], [address], [place] tel:[phone] [facility] Physical (chief complaint) Dietary surveillance and counselingRoutine Medical ExamRoutine Medical Exam 5 Arsalan [address], [place], [place], [address] , [place]. [phone] Referring Provider: Susi Celeste [address], [place], [place], [address]. tel:[phone] OFFICE/OUTPA TIENT VISIT, EST [facility], [address], [place], [place], [address], [place] tel:[phone] [facility] breast lesion (chief complaint) Hematuria (chief complaint) Dietary surveillance and counselingLump or mass in breastHEMATURIA NOSPolyp of corpus uteri 3 Arsalan Goldman [address], [place], [place], [address] , [place]. [phone] Referring Provider: Susi Celeste [address], [place], [place], [address]. tel:[phone] OFFICE/OUTPA TIENT VISIT, EST [facility], [address], [place], [place], [address], [place] tel:[phone] [facility] HLP (chief complaint) Vitamin D (chief complaint) breast density (chief complaint) abdominal pain (chief complaint) hematuria (chief complaint) Other and unspecified hyperlipidemiaUnspe cified abnormal mammogramAbdominal PainHEMATURIA NOSDietary surveillance and counseling 3 Arsalan Rachel. [address], [address], [place], [place], [address] , [place]. tel:[phone] Referring Provider: Wilson Arriaza, Susi [address], [place], [place], [address]. tel:[phone] PREV VISIT, EST, AGE 40-64 [facility], [address], [place], [place], [address], [place] tel:[phone] [facility] Physical (chief complaint) Dietary surveillance and counselingRoutine Medical ExamRoutine Medical Exam 3 Arsalan Rachel. [address], [place], [place], [address] , [place]. tel:[phone] Family History Family Member Type Diagnosis Age At Onset Mother Problem (finding) Osteoporosis Brother Problem (finding) Cancer -lymphoma Father Problem (finding) Stroke Brother Problem (finding) Lymphoma Payers Payer name Insurance type Covered libertarian ID Authoriza tion(s) No Information Social History [...] polyp. Pt had appointment with urology at [facility] and then she canceled it. [...] ordered Referral Referred To: Christian Powell [address] [place], [phone] Ordered: Referrals: Christian Powell. Evaluate and treat ordered Referral Ordered: DXA BONE DENSITY, AXIAL ordered Referral Ordered: Moises Hoang (related to Ankle pain) ordered Referral Ordered: KNEE XRAY TWO-VIEW Left ordered Referral Referred To: Moises Hoang [address] [place], [phone] Ordered: Referrals: Moises Hoang. Evaluate and treat [...] see her since she had surgery at [facility]. Pt called [facility] and they will not see her.k Pt denies any worsening pain. HTN Pt takes losarta n and her [...] Pt c/o left knee pain x 2week. HLP Pt has HLP on [place]. [...] Diet Related to Dietary Surveillance and Counseling Physical activity counseling Rel ated to Dietary surveillance counseling Decrease caloric intake [...] Mental Status Date Cognitive Assessment Orientation - [place] ed to time, place, person, situation.
[2025-02-12 18:05] VITALS: BP 151/93; PULSE 84; RESP 24; TEMP 36.8; O2SAT 98
--- NOTE | 2025-02-12 18:21 | ED_ITS ---
HPI - URI/Sore Throat General Chief Complaint: Upper Respiratory Infection Stated Complaint: chest pain,congestion Time Seen by Provider: 02/12/25 18:05 Source: patient, family and RN notes reviewed Mode of arrival: ambulatory Limitations: no limitations History of Present Illness HPI Narrative: 64-year-old female presents Express Care complaining of upper respiratory symptoms, cough, shortness of breath for 4 days. Patient reports she initially started upper respiratory symptom with cough, congestion, runny nose. Since then she says is progressed into her chest. Patient states she has productive cough, shortness of breath with exertion, wheezing, chest pain with inspiration, and weakness. Patient denies any fevers, body aches, chills. Patient has been told that she has asthma but she states she does not take anything for asthma. Patient says she has a history of pulmonary embolism but states that has resolved and no longer takes oral anticoagulants. Patient denies any chest pain with exertion, syncope, nausea, vomiting, diarrhea, or any other symptoms. Patient denies any recent surgeries. Related Data Allergies Allergy/AdvReac Type Severity Reaction Status Date / Time No Known Allergies Allergy Verified 02/12/25 18:06 Review of Systems Review of Systems: CONSTITUTIONAL: Denies fever, chills, body aches, or sweats. EYES: Denies visual changes, redness, or discharge. ENT: Negative for for rhinorrhea, sore throat, or otalgia. Positive for congestion. CARDIOVASCULAR: Negative for chest pain at rest, chest pain with exertion,, syncope, lightheadedness, palpitations, or edema. RESPIRATORY: Positive for cough, chest pain with inspiration, and dyspnea with exertion. Negative for orthopnea, dyspnea rest. GASTROINTESTINAL: Denies abdominal pain, nausea, vomiting, or diarrhea. GENITOURINARY: Denies dysuria or hematuria. SKIN: Denies rash or itching. MUSCULOSKELETAL: Denies back pain, joint pain, or myalgia. NEUROLOGIC: Denies headache, numbness, or weakness. PSYCHIATRIC: Denies anxiety or depression. All other systems reviewed are negative, except as documented in HPI. [facility] Past Medical History Medical History History of blood clots Post-menopausal History of blood transfusion Fractures C. difficile colitis Arthritis Bronchitis Asthma HTN (hypertension) Surgical History Surgical History History of orthopedic surgery L intermedullary nail History of ankle surgery right side Hx of appendectomy Hx of tonsillectomy Social History Social History Smoking status: Never smoker Second hand tobacco smoke exposure: No Alcohol intake: never Living arrangements: with family Gender identity (if verbalized by the patient): Female Comments At the time of my signature, I reviewed and agree with the nursing past medical, surgical, social, and family history. There is no relevant family history pertinent to the patient complaint. Exam Narrative: GENERAL: This is a well-nourished, well-developed adult, in no apparent distress. They are non ill-appearing, nontoxic appearing. Patient is morbidly obese. Physical exam limited due to large body habitus. Patient walks with a cane. HEAD: normocephalic, atraumatic. EYES: Sclera clear/white. Vision is grossly intact. Conjunctiva normal bilaterally. Extraocular movements intact. EARS: External ears normal, auditory canals clear and without drainage, TMs with out erythema or perforation. Hearing grossly intact. NOSE: External nose normal with no obvious nasal discharge, nasal turbinates erythematous, no rhinorrhea. THROAT: Mucous membranes moist, posterior pharynx without redness or swelling. Uvula is midline. Postnasal drip present. NECK: Neck supple, non-tender without lymphadenopathy, masses or thyromegaly. CARDIOVASCULAR: Regular rate and rhythm without murmurs, gallops, or rubs. RESPIRATORY: Wheezing is heard throughout and spit radiation and expiration. Breath sounds equal bilaterally. No rales or rhonchi. Respiratory rate is tachypneic, respiratory effort labored, mild respiratory distress, no retractions. Patient Is able to speak in full sentences. SKIN: warm, Dry, intact with no suspicious lesions or rash, good texture and turgor. NEURO: awake, alert, and oriented to person, place and time. There were no obvious focal neurologic abnormalities. EXTREMITIES: No joint tenderness, effusion, or edema noted. BACK: Nontender without deformity. Course Course Emergency Course: Patient given a dose of DuoNeb for wheezing and shortness of breath. Patient reports feeling significantly better after the DuoNeb. Patient is no longer tachypneic, no signs of respiratory distress, repeat lung sounds show that lungs are clear throughout inspiration and expiration. Level of Care: Express Care Visit Vital Signs Vital signs: Vital Signs Temperature 98.3 F 02/12/25 18:05 Pulse Rate 84 02/12/25 18:05 Respiratory Rate 24 H 02/12/25 18:05 Blood Pressure 151/93 H 02/12/25 18:05 Pulse Oximetry 98 02/12/25 18:05 Oxygen Delivery Room Air 02/12/25 18:05 Temperature 98.3 F 02/12/25 18:05 Pulse Rate 84 02/12/25 18:05 Respiratory Rate 24 H 02/12/25 18:05 Blood Pressure 151/93 H 02/12/25 18:05 Pulse Oximetry 98 02/12/25 18:05 Oxygen Delivery Room Air 02/12/25 18:05 MDM - URI/Sore Throat MDM Narrative Medical decision making narrative: Wells score 1.5, low risk for PE, unlikely PE. EKG sinus rhythm without ischemic findings. Chest x-ray was negative for any signs of pneumonia or acute findings. Patient reports feeling significantly better after DuoNeb treatment and no longer is in respiratory distress. Patient states she does not have asthma, advised her to follow-up with PCP for further testing as it appears she has asthma. Given her upper respiratory symptoms likely the patient has a purulent bronchitis. Will prescribe albuterol inhaler and prednisone, along with Augmentin. Discussed physical exam findings. Advised supportive measures and signs/symptoms to go to the ER. Pt is appropriate for outpt treatment and f/u. Differential Diagnosis Differential diagnosis: Likely upper respiratory infection and other (Pneumonia, bronchitis) Lab Data Attestation: I reviewed the patient's lab results. Labs: Lab Results 02/12/25 Range/Units 19:20 POC Influenza A Ag Negative (Negative) POC Influenza B Ag Negative (Negative) POC SARS CoV-2 Ag Negative (Negative) Imaging Data Radiologist's impression: ITS Impressions Chest X-Ray 02/12/25 19:00 IMPRESSION: No acute cardiopulmonary pathology ECG Data EKG #1: Attestation: I personally reviewed and interpreted this ECG as follows: ECG completion date: 02/12/25 ECG completion time: 18:51 Prior ECG tracings: available for review EKG Interpretation: normal rate, sinus rhythm, no ectopy, no ST changes, normal QRS and no acute changes Discharge Plan Discharge Clinical Impression: Acute purulent bronchitis Patient Disposition: Home Condition: Stable Instructions: Antibiotic Form, Acute Bronchitis (ED) Additional Instructions: Your chest x-ray is negative for any acute findings or pneumonia. Your COVID and flu were negative today. Is likely to have a bronchitis that was worsened by her asthma. Please use your albuterol inhaler as needed for wheezing or shortness of breath. Take the Augmentin as directed. Take the prednisone as directed. Take the prednisone in the morning and with food. Follow-up with PCP in 3-5 days. If your shortness of breath returns, becomes worse, he can not talk in full sentences, he developed chest pressure, nausea or vomiting, or any other concerns please go to the ER immediately. Patient Language: Setswana Prescriptions: New prednisone 20 mg tablet 40 mg PO DAILY 5 Days Qty: 10 0RF albuterol sulfate [Ventolin HFA] 90 mcg/actuation HFA aerosol inhaler 2 puff inhalation QID PRN (Reason: shortness of breath or wheezing) Qty: 8.5 0RF amoxicillin-pot clavulanate 875-125 mg tablet 1 tablet PO Q12H 7 Days Qty: 14 0RF (DME) Mike Aerosol [place] Enhancer Spacer See Rx Instructions .Route Qty: 1 0RF Rx Instructions: As directed No Action amoxicillin-pot clavulanate 875-125 mg tablet 1 tablet PO Q12H 10 Days Qty: 20 0RF benzonatate 200 mg capsule 200 mg PO TID PRN (Reason: cough) Qty: 20 0RF prednisone 20 mg tablet 40 mg PO DAILY 5 Days Qty: 10 0RF albuterol sulfate 90 mcg/actuation HFA aerosol inhaler 2 puff inhalation Q4-6H PRN (Reason: shortness of breath or wheezing) Qty: 8.5 0RF (DME) Aerochamber Plus Z Stat Spacer See Rx Instructions .Route Qty: 1 0RF Rx Instructions: As directed guaifenesin [Mucinex] 600 mg tablet extended release 12hr 600 mg PO BID 10 Days Qty: 20 0RF ibuprofen 600 mg tablet 600 mg PO TID PRN (Reason: pain) Qty: 30 0RF acetaminophen 500 mg capsule 1,000 mg PO Q6H PRN (Reason: pain) Qty: 30 0RF methocarbamol 750 mg tablet 1,500 mg PO HS Qty: 14 0RF lidocaine 4 % adhesive patch,medicated 1 patch topical DAILY PRN (Reason: pain) Qty: 5 0RF Follow-up/Referrals: CLAIRE,KIMBERLY PETERSEN [Primary Care Provider] - Time of Disposition: 19:30
[2025-02-12] MEDS: IPRATROPIUM 0.5 MG/ALBUTEROL SULFATE 2.5 MG AMPUL.NEB 3 ML INHALATION (18:23)
--- NOTE | 2025-02-12 18:26 | ECG_ITS ---
Test Date: 2025-02-12 18:51:01 Measurements Intervals [place] Rate: 84 P: 26 CA: 181 QRS: 32 QRSD: 101 T: 49 QT: 377 QTc: 446 Interpretive Statements SINUS RHYTHM CONSIDER INFERIOR INFARCT, AGE INDETERMINATE BASELINE ARTIFACT- I, II, III, AVR, AVL, AVF, V1-V6 ABNORMAL ECG No previous ECG available for comparison Electronically Signed On 02-12-2025 20:16:24 CDT by Lemuel Monson D.O.
[2025-02-12 19:22] LABS: EDCOVIDSCREEN Negative (Negative); EDINFLUASCREEN Negative (Negative); EDINFLUBSCREEN Negative (Negative)
[2025-02-12 19:35] VITALS: BP 140/92; PULSE 94; RESP 20; O2SAT 99
== END 2025-02-12 19:35 | disposition home or self-care (01) ==
PROVIDERS: PCP Nurse Practitioner Family
DX: J20.9 Acute bronchitis, unspecified (principal); Z20.822 Contact with and (suspected) exposure to COVID-19; I10 Essential (primary) hypertension; J45.909 Unspecified asthma, uncomplicated; Z86.19 Personal history of other infectious and parasitic diseases
CPT/HCPCS: 71046; 87426; 87804; 93005; 99213; G0463

== ENCOUNTER 2025-02-13 09:14 | Emergency (ER) | payer MEDICARE, MEDICAID, SELFPAY ==
[2025-02-13] VITALS (7 sets, daily range): BP systolic 133–177; BP diastolic 70–87; PULSE 73–90; RESP 14–22; TEMP 36.4; O2SAT 97–100
[2025-02-13] MEDS: ALBUTEROL SULFATE NEB 2.5 MG/3 ML INH 10 MG INHALATION (09:41)
[2025-02-13] MEDS: IPRATROPIUM BR 0.02% INH SOLN 0.5 MG/2.5 ML VIAL 1 MG INHALATION (09:41)
--- OUTSIDE RECORDS SUMMARY | 2025-02-13 09:56 | XMS_ITS | Referral Summary ---
Author Organization [facility] Address [address] [place] [address] Care Team Providers Care Customer Development Representative Name Role Phone Sunshine Blancas NP Primary Care Provider [phone] Allergies No known active allergies Medications cyclobenzaprine [...] on file Legal Sex Female 6:58 PM PILL MAKER Gender Identity Not on file Sexual Orientation Not on file Last Filed Vital Signs Vital Sign Reading Time Taken Comments Blood Pressure 165/109 07/16/2021 4:31 PM PILL MAKER Pulse 86 07/16/2021 4:31 PM PILL MAKER Temperature 36.7 C (98 F) 07/16/2021 3:13 PM PILL MAKER Respiratory Rate 20 07/16/2021 4:31 PM PILL MAKER Oxygen Saturation 97% 07/16/2021 4:31 PM PILL MAKER Inhaled Oxygen Concentration - - Weight 141.2 kg (311 lb 4.6 oz) 07/16/2021 3:13 PM PILL MAKER Height 157.5 cm (5' 2) 07/16/2021 3:13 PM PILL MAKER Body Mass Index 56.94 07/16/2021 3:13 PM PILL MAKER Plan of Treatment Not on file Insurance [facility] Care Teams Customer Development Representative Relationship Specialty Start Date End Date Sunshine Blancas NP [address] [place] [id number] PCP - General Nurse Practitioner 07/16/21
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
--- OUTSIDE RECORDS SUMMARY | 2025-02-13 09:56 | XMS_ITS | Clinical Summary ---
Author Organization [facility] Address [address] [place] [address] Care Team Providers Care Oil Seal Assembler Name Role Phone Sunshine Blancas NP Primary Care Provider [phone] Allergies No known active allergies Medications cyclobenzaprine [...] on file Legal Sex Female 6:58 PM [employer] Gender Identity Not on file Sexual Orientation Not on file Last Filed Vital Signs Vital Sign Reading Time Taken Comments Blood Pressure 165/109 07/16/2021 4:31 PM [employer] Pulse 86 07/16/2021 4:31 PM [employer] Temperature 36.7 C (98 F) 07/16/2021 3:13 PM [employer] Respiratory Rate 20 07/16/2021 4:31 PM [employer]PER[employer] Oxygen Saturation 97% 07/16/2021 4:31 PM [employer]PER[employer] Inhaled Oxygen Concentration - - Weight 141.2 kg (311 lb 4.6 oz) 07/16/2021 3:13 PM [employer]PER[employer] Height 157.5 cm (5' 2) 07/16/2021 3:13 PM [employer] Body Mass Index 56.94 07/16/2021 3:13 PM [employer]PER[employer] Plan of Treatment Not on file Insurance [facility] Care Teams Oil Seal Assembler Relationship Specialty Start Date End Date Sunshine Blancas NP [address] [place] [id number] PCP - General Nurse Practitioner 07/16/21
[2025-02-13 10:25] LABS: Influenza A QL RT-PCR Negative (Negative); Influenza B QL RT-PCR Negative (Negative); RSV RNA, RT-PCR Negative (Negative); SARS-CoV-2 RNA PCR Negative (Negative)
--- OUTSIDE RECORDS SUMMARY | 2025-02-13 10:33 | XMS_ITS | Continuity of Care Document ---
Author Organization [facility] Address [address] [place] [address] [place] [address] Phone Care Team Providers Care Special Education Resource Teacher Name Role Phone Wilson Arriaza MD Unavailable [...] route every day 60 MG - Active [place] 5 mg-325 mg tablet take 1 tablet [...] Copied on Encounter OFFICE/OUTPA TIENT VISIT, EST [facility], [address], [place], [place], [address], [place] tel:[phone] [facility] Medicine HTN (chief complaint) hematuria1 (chief complaint) shoulder pain1 (chief complaint) Adhesive capsulitis of right shoulderHematuriaEs sential (primary) hypertension May- 6 Arsalan Rachel. [address], [place], [place], [address] , [place]. tel:[phone] Referring Provider: Susi Celeste [address], [place], [place], [address]. tel:[phone] OFFICE/OUTPA TIENT VISIT, [facility], [address], [place], [place], [address], [place] tel:[phone] [facility] HLP (chief complaint) hematuria1 (chief complaint) low D (chief complaint) HTN1 (chief complaint) sinus (chief complaint) HematuriaMixed hyperlipidemiaMetab olic syndromeEssential (primary) hypertension Lalit- 6 Arsalan Rachel. [address], [place], [place], [address] , [place]. tel:[phone] Referring Provider: Susi Celeste [address], [place], [place], [address]. tel:[phone] PREV VISIT, EST, AGE 40-64 [facility], [address], [place], [place], [address], [place] tel:[phone] [facility] Medicine PHysical (chief complaint) Encounter for general adult medical exam w abnormal findingsEssential (primary) hypertensionBody mass index (BMI) 45.0-49.9, adultHyperlipidemia , unspecified 6 Arsalan Stafford [address], [place], [place], [address] , [place]. tel:[phone] Referring Provider: Susi Celeste [address], [place], [place], [address]. tel:[phone] OFFICE/OUTPA TIENT VISIT, [facility], [address], [place], [place], [address], [place] tel:[phone] [facility] Medicine sinus (chief complaint) HLP (chief complaint) HTN (chief complaint) Acute sinusitisMixed hyperlipidemiaEssen tial (primary) hypertension Nov-0 6 Arsalan Stafford [address], [place], [place], [address] , [place]. tel:[phone] Referring Provider: Susi Celeste [address], [place], [place], [address]. tel:[phone] OFFICE/OUTPA TIENT VISIT, [facility], [address], [place], [place], [address], [place] tel:[phone] [facility] HTN1 (chief complaint) HLP (chief complaint) joint pain (chief complaint) Essential (primary) hypertensionMixed hyperlipidemiaBody mass index (BMI) 50-59.9 , adultChronic pain syndrome 6 Arsalan Stafford [address], [place], [place], [address] , [place]. [phone] Referring Provider: Susi Cel[address], [place], [place], [address]. tel:[phone] OFFICE/OUTPA TIENT VISIT, [facility], [address], [place], [place], [address], [place] tel:[phone] [facility] Medicine HTN (chief complaint) ankle pain (chief complaint) HLP (chief complaint) Dietary surveillance and counselingUnspecifi ed essential hypertensionHyperli pidaemiaAnkle pain Sep-2 2201 5 Arsalan Stafford [address], [place], [place], [address] , [place]. tel:[phone] Referring Provider: Susi Celeste [address], [place], [place], [address]. tel:[phone] OFFICE/OUTPA TIENT VISIT, [facility], [address], [place], [place], [address], [place] tel:[phone] [facility] HTN (chief complaint) ankle pain (chief complaint) Dietary surveillance and counselingBP - High blood pressureBMI 50.0 to 59.9Ankle pain 5 Arsalan Rachel. [address], [place], [place], [address] , [place]. [phone] Referring Provider: Susi Cel[address], [place], [place], [address]. tel:[phone] PREV VISIT, EST, AGE 40-64 [facility], [address], [place], [place], [address], [place] tel:[phone] [facility] Physical (chief complaint) Dietary surveillance and counselingRoutine Medical ExamRoutine Medical Exam 5 Arsalan [address], [place], [place], [address] , [place]. [phone] Referring Provider: Susi Celeste [address], [place], [address]. tel:[phone] OFFICE/OUTPA TIENT VISIT, EST [facility], [address], [place], [place], [address], [place] tel:[phone] [facility] breast lesion (chief complaint) Hematuria (chief complaint) Dietary surveillance and counselingLump or mass in breastHEMATURIA NOSPolyp of corpus uteri 3 Arsalan [address], [place], [address] , [place]. [phone] Referring Provider: Susi Celeste [address], [place], [place], [address]. tel:[phone] OFFICE/OUTPA TIENT VISIT, EST [facility], [address], [place], [place], [address], [place] tel:[phone] [facility] HLP (chief complaint) Vitamin D (chief complaint) breast density (chief complaint) abdominal pain (chief complaint) hematuria (chief complaint) Other and unspecified hyperlipidemiaUnspe cified abnormal mammogramAbdominal PainHEMATURIA NOSDietary surveillance and counseling 3 Arsalan Rachel. [address], [place], [place], [address] , [place]. tel:[phone] Referring Provider: Wilson Arriaza, Susi [address], [place], [place], [address]. tel:[phone] PREV VISIT, EST, AGE 40-64 [facility], [address], [place], [place], [address], [place] tel:[phone] [facility] Physical (chief complaint) Dietary surveillance and counselingRoutine Medical ExamRoutine Medical Exam 3 Arsalan Rachel. [address], [place], [place], [address] , [place]. tel:[phone] Family History Family Member Type Diagnosis Age At Onset Mother Problem (finding) Osteoporosis Brother Problem (finding) Cancer -lymphoma Father Problem (finding) Stroke Brother Problem (finding) Lymphoma Payers Payer name Insurance type Covered green party ID Authoriza tion(s) No Information Social History [...] polyp. Pt had appointment with urology at [facility] and then she canceled it. [...] ordered Referral Referred To: Christian Powell [address] [place], [phone] Ordered: Referrals: Christian Powell. Evaluate and treat ordered Referral Ordered: DXA BONE DENSITY, AXIAL ordered Referral Ordered: Moises Hoang (related to Ankle pain) ordered Referral Ordered: KNEE XRAY TWO-VIEW Left ordered Referral Referred To: Moises Hoang [address] [place], [phone] Ordered: Referrals: Moises Hoang. Evaluate and treat [...] her since she had surgery at [facility]. Pt called [facility] and they will not see her.k Pt [...] Mental Status Date Cognitive Assessment Orientation - [place] ed to time, place, person, situation.
--- NOTE | 2025-02-13 11:27 | ED_ITS ---
HPI - General Adult General Chief complaint: Upper Respiratory Infection Stated complaint: COUGH,CONGESTION NEGATIVE SWAB AT [facility] Time Seen by Provider: 02/13/25 09:21 History of Present Illness HPI narrative: Patient is a 64-year-old female who presents ER with cough and shortness of breath. Seen at urgent care yesterday and received a breathing treatment as well as a nebulizer and steroids. Patient did receive steroid yesterday. She picked up her prescription this morning but was more short of breath so she came here. No chest pain. No new productive cough. Chest x-ray reviewed and negative. Related Data Allergies Allergy/AdvReac Type Severity Reaction Status Date / Time No Known Allergies Allergy Verified 02/12/25 18:06 Review of Systems Review of Systems: All systems reviewed & are unremarkable except as noted in HPI and below Constitutional: Constitutional: Reports no additional constitutional complaints Cardiovascular: Cardiovascular: Reports no additional cardiovascular complaints Respiratory: Respiratory: Reports no additional respiratory complaints PMFSH Past Medical History Medical History History of blood clots Post-menopausal History of blood transfusion Fractures C. difficile colitis Arthritis Bronchitis Asthma HTN (hypertension) Surgical History Surgical History History of orthopedic surgery L intermedullary nail History of ankle surgery right side Hx of appendectomy Hx of tonsillectomy Social History Social History Smoking status: Never smoker Second hand tobacco smoke exposure: No Alcohol intake: never Living arrangements: with family Gender identity (if verbalized by the patient): Female Exam Narrative: GENERAL: Well-appearing, morbidly obese, and in no acute distress. HEAD: Normocephalic, atraumatic. ENT: Mucous membranes moist. CHEST: Expiratory wheezing bilaterally. No respiratory distress. HEART: Regular rate and rhythm. Normal peripheral pulses. EXTREMITIES: Normal range of motion. No edema. SKIN: Warm, dry, no rash. NEURO: Alert and oriented x3. PSYCH: Normal mood and affect. Course Course Emergency Course: Patient feels improved after hour long nebulizer treatment. Wheezing essentially resolved. No hypoxia. Discharge. Vital Signs Vital signs: Vital Signs Temperature 97.6 F 02/13/25 09:18 Pulse Rate 85 02/13/25 09:18 Respiratory Rate 22 H 02/13/25 09:18 Blood Pressure 160/87 H 02/13/25 09:18 Pulse Oximetry 98 02/13/25 09:18 Oxygen Delivery Room Air 02/13/25 09:18 Temperature 97.6 F 02/13/25 09:18 Pulse Rate 90 02/13/25 10:50 Respiratory Rate 18 02/13/25 10:50 Blood Pressure 157/75 H 02/13/25 10:16 Pulse Oximetry 100 02/13/25 10:16 Oxygen Delivery Room Air 02/13/25 09:23 Medical Decision Making Vital Signs Vital Signs: Vital Signs Temperature 97.6 F 02/13/25 09:18 Pulse Rate 85 02/13/25 09:18 Respiratory Rate 22 H 02/13/25 09:18 Blood Pressure 160/87 H 02/13/25 09:18 Pulse Oximetry 98 02/13/25 09:18 Oxygen Delivery Room Air 02/13/25 09:18 Temperature 97.6 F 02/13/25 09:18 Pulse Rate 90 02/13/25 10:50 Respiratory Rate 18 02/13/25 10:50 Blood Pressure 157/75 H 02/13/25 10:16 Pulse Oximetry 100 02/13/25 10:16 Oxygen Delivery Room Air 02/13/25 09:23 Lab Data Labs: Lab Results 02/13/25 Range/Units 09:28 Influenza A (RT-PCR) Negative (Negative) Influenza B (RT-PCR) Negative (Negative) RSV (RT-PCR) Negative (Negative) SARS-CoV-2 RNA (RT-PCR) Negative (Negative) Discharge Plan Discharge Clinical Impression: Bronchitis Patient Disposition: Home Condition: Stable Instructions: Acute Bronchitis (ED) Additional Instructions: Please return to the emergency department if you develop severe and persistent chest pain, difficulty breathing, dizziness, leg swelling or if you are coughing up blood as these can be signs of a medical emergency. Please call your doctor for a follow up appointment to determine the need for further testing. Patient Language: Polish Prescriptions: No Action amoxicillin-pot clavulanate 875-125 mg tablet 1 tablet PO Q12H 10 Days Qty: 20 0RF benzonatate 200 mg capsule 200 mg PO TID PRN (Reason: cough) Qty: 20 0RF prednisone 20 mg tablet 40 mg PO DAILY 5 Days Qty: 10 0RF albuterol sulfate 90 mcg/actuation HFA aerosol inhaler 2 puff inhalation Q4-6H PRN (Reason: shortness of breath or wheezing) Qty: 8.5 0RF (DME) Aerochamber Plus Z Stat Spacer See Rx Instructions .Route Qty: 1 0RF Rx Instructions: As directed guaifenesin [Mucinex] 600 mg tablet extended release 12hr 600 mg PO BID 10 Days Qty: 20 0RF prednisone 20 mg tablet 40 mg PO DAILY 5 Days Qty: 10 0RF albuterol sulfate [Ventolin HFA] 90 mcg/actuation HFA aerosol inhaler 2 puff inhalation QID PRN (Reason: shortness of breath or wheezing) Qty: 8.5 0RF amoxicillin-pot clavulanate 875-125 mg tablet 1 tablet PO Q12H 7 Days Qty: 14 0RF (DME) Mike Aerosol [place] Enhancer Spacer See Rx Instructions .Route Qty: 1 0RF Rx Instructions: As directed ibuprofen 600 mg tablet 600 mg PO TID PRN (Reason: pain) Qty: 30 0RF acetaminophen 500 mg capsule 1,000 mg PO Q6H PRN (Reason: pain) Qty: 30 0RF methocarbamol 750 mg tablet 1,500 mg PO HS Qty: 14 0RF lidocaine 4 % adhesive patch,medicated 1 patch topical DAILY PRN (Reason: pain) Qty: 5 0RF Follow-up/Referrals: CLAIRE,KIMBERLY PETERSEN [Primary Care Provider] - 1 Week
== END 2025-02-13 11:42 | disposition home or self-care (01) ==
PROVIDERS: Physician Assistant; Emergency Provider Emergency Medicine; PCP Nurse Practitioner Family
DX: J45.909 Unspecified asthma, uncomplicated (principal); Z20.822 Contact with and (suspected) exposure to COVID-19; I10 Essential (primary) hypertension; M19.90 Unspecified osteoarthritis, unspecified site; Z86.711 Personal history of pulmonary embolism
CPT/HCPCS: 87637; 94640; 99283

== ENCOUNTER 2025-02-14 14:12 | Inpatient (IN) | payer MEDICARE, MEDICAID, SELFPAY ==
[2025-02-14] VITALS (11 sets, daily range): BP systolic 144–174; BP diastolic 41–76; PULSE 82–100; RESP 16–24; TEMP 36.2–36.6; O2SAT 96–100; BMI 57.4
--- NOTE | ~2025-02-14 | XR_ITS ---
EXAMINATION: XR chest 1V portable 02/14/2025 15:23 INDICATION: Dyspnea PROCEDURE: AP portable chest COMPARISON: Comparison to multiple prior studies sequentially, with oldest reviewed study dated 11/12. FINDINGS: The lungs are clear. The cardiomediastinal silhouette is within normal limits. There are no pleural effusions. There is no pneumothorax suspected. IMPRESSION: 1: NO ACUTE CARDIOPULMONARY DISEASE. Reviewed, dictated and finalized at location B.
--- NOTE | ~2025-02-14 | CT_ITS ---
CTA chest PE protocol Ordering provider: Avni Wade MD History: 64 years Female with . randy, hx pe . Comparison: July 26, 2022 Technique: CT angiogram chest was performed following timed intravenous injection of contrast. Thin s lice axial images and reformatted coronal images were obtained. Three dimensional reformatted images of the chest were also obtained using a [employer] workstation. . Automated exposure control and iterati ve reconstruction technique were employed. The dose-length product was 947.60 mGy-cm. 100 mL Omnipaqu e 350 was given IV. Findings: PULMONARY ARTERIES: No pulmonary embolus. VISUALIZED THORACIC INLET: Normal. Rectal wall laryngeal internal carotid arteries are noted. MEDIASTINUM: Aorta/coronary arteries: Mild atheromatous disease. Heart/other: The heart is not enlarged. Lymph nodes: No mediastinal or hilar adenopathy. Precarinal lymph node is seen measuring 1.2 cm. LUNGS: Fibrotic changes in the lung bases. Pneumonitis in the left lung base is not excluded. No pulmonary nodules or masses. No effusions. No pneumothorax. VISUALIZED UPPER ABDOMEN: Fat infiltration of the liver. Small sliding hiatus hernia. Otherwise, the visualized upper abdomen is normal. MUSCULOSKELETAL: Soft tissues: The superficial soft tissues are normal. Bones: Age appropriate degenerative changes of the spine. IMPRESSION: 1. No pulmonary embolism. 2. Minimal opacification in the left lung base which may indicate pneumonitis. Underlying fibrotic c hanges are seen in both lung bases. Reviewed, dictated and finalized at location A. IMPRESSION: 1. No pulmonary embolism. 2. Minimal opacification in the left lung base which may indicate pneumonitis. Underlying fibrotic changes are seen in both lung bases.
--- NOTE | 2025-02-14 14:27 | ECG_ITS ---
Test Date: 2025-02-14 14:25:14 Measurements Intervals [place] Rate: 87 P: 33 [place]: 179 QRS: 39 QRSD: 96 T: 63 QT: 350 QTc: 422 Interpretive Statements SINUS RHYTHM BASELINE ARTIFACT- I, II, III, AVR, AVL NORMAL ECG Compared to ECG 02/12/2025 18:51:01 NO SIGNIFICANT CHANGE Electronically Signed On 02-14-2025 15:03:45 CDT by Lemuel Monson D.O.
--- NOTE | 2025-02-14 14:33 | ED.SOB ---
HPI - SOB/Dyspnea General Chief Complaint: Shortness of Breath/Dyspnea Stated Complaint: SOB Time Seen by Provider: 02/14/25 14:23 History of Present Illness HPI Narrative: 64-year-old female with a past medical history including reactive airway disease but no formal diagnosis of asthma/COPD. She has a history of a pulmonary embolism 5 years ago per presently off of anticoagulation. History of morbid obesity. Patient presents for her 3rd visit in 3 days for concerns of difficulty in breathing. She states that she was diagnosis of bronchitis during last 2 visits and be getting breathing treatments, steroids and Augmentin and feels worse. She states the breathing treatments do in fact helper very briefly but this short-lived and wears off. She has been using her albuterol constantly to trying get relief. She endorses difficulty in breathing and congestion as well as upper respiratory infection symptoms. No chest pain or pressure. No worsening swelling in her legs, no new DVT, recent surgeries or hospitalizations. Related Data Allergies Allergy/AdvReac Type Severity Reaction Status Date / Time No Known Allergies Allergy Verified 02/12/25 18:06 Review of Systems Review of Systems: As reviewed above in HPI [facility] Past Medical History Medical History (Updated 02/14/25 @ 19:07 by Avni Wade MD) History of blood clots Post-menopausal History of blood transfusion Fractures C. difficile colitis Arthritis Bronchitis Asthma HTN (hypertension) Surgical History Surgical History History of orthopedic surgery L intermedullary nail History of ankle surgery right side Hx of appendectomy Hx of tonsillectomy Social History Social History Smoking status: Never smoker Second hand tobacco smoke exposure: No Alcohol intake: never Substance use: never Substance use type: does not use Do You Feel Safe in your Home?: Yes Lack of Transportation: No Lack of Food: Never True Current Housing: I Have Housing Concerned About Future Housing: No Difficulty Paying Gas/Electric Bills: No Difficulty Paying for Meds: No Currently Unemployed: No Education: High School Diploma/GED Difficulty w/ Childcare or Family Care: No Living arrangements: with family Gender identity (if verbalized by the patient): Female Spiritual care concerns: No Exam Narrative: GENERAL: Morbidly obese, answering questions appropriately, mildly tachypneic HEAD: [Normocephalic, atraumatic.] EYES: [PERRLA and EOMI.] ENT: Nares clear, no rhinorrhea or epistaxis. Mucous membranes moist. NECK: Supple. CHEST: Coarse breath sounds throughout both lung awad, mild tachypnea but no respiratory distress. No prolonged expiratory phase, no stridor HEART: [Regular rate and rhythm]. No murmur heard. [Normal peripheral pulses.] ABDOMEN: [Soft, nondistended], [nontender], [No rigidity or guarding] EXTREMITIES: Normal range of motion./2+ lymphedema bilaterally SKIN: Warm, dry, no rash. NEURO: [No focal deficits]. Alert and oriented [x3.] PSYCH: [Normal mood and affect.] Course Course Emergency Course: Nursing staff informed me that patient volunteered that she was taking high doses of aspirin over in indeterminate amount of time as she was worried about recurrence of a pulmonary embolism. Patient states she has been taking up to 18 tablets of 324 mg aspirins daily. Salicylate levels added. This could potentially be a toxic dose although given her body weight is approximately 40 milligrams/kilogram which is reassuring. Will evaluate with salicylate level and her other labs and go from there. Vital Signs Vital signs: Vital Signs Temperature 36.3 C L 02/14/25 14:21 Pulse Rate 87 02/14/25 14:21 Respiratory Rate 21 H 02/14/25 14:21 Blood Pressure 163/76 H 02/14/25 14:21 Pulse Oximetry 96 02/14/25 14:21 Oxygen Delivery Room Air 02/14/25 14:21 Temperature 36.4 C 02/14/25 18:40 Pulse Rate 96 02/14/25 18:40 Respiratory Rate 24 H 02/14/25 18:40 Blood Pressure 149/70 H 02/14/25 18:40 Pulse Oximetry 100 02/14/25 18:40 Oxygen Delivery Room Air 02/14/25 18:37 MDM - SOB/Dyspnea MDM Narrative Medical decision making narrative: 64-year-old female with history of morbid obesity, reactive airway disease without formal diagnosis of asthma/COPD, history of PE not on anticoagulation. She presents with difficulty breathing. This is her 3rd visit for similar complaints over last 3 days. She is not any respiratory distress but is mildly tachypneic with a respiratory rate of 21, afebrile here without tachycardia or hypoxia. She has coarse breath sounds throughout all lung awad, morbidly obese with considerations presently for potential obesity hypoventilation, bronchitis, pneumonia, pneumothorax, pulmonary embolism, low suspicion ACS or cardiovascular pathology otherwise. She states that the nebulizers and albuterol help her very transiently. She is requesting breathing treatments. Workups and notes were reviewed from previous 2 visits and we will expand on her workup to include CT angiography of her chest today including VBG, CBC, CMP, troponin, EKG, chest x-ray. She was given nebulized albuterol and Atrovent as well as magnesium for bronchodilation. Patient placed on quality assurance monitor body and pulse oximetry and we will admit her upon completion of workup given her recurrence of difficulty breathing. Patient's workup shows no leukocytosis or anemia. Normal platelet count. Blood gas shows normal pH, or largely unremarkable pCO2 and bicarb. Chemistry panel shows normal electrolytes, normal renal function, normal glucose, normal LFTs. Negative troponin. Negative BNP. Aspirin levels normal. Chest x-ray shows no acute cardiopulmonary disease. CT angiography shows no pulmonary embolism but some left lung base pneumonitis. She was started on atypical coverage with azithromycin for this. Patient re-evaluated doing better after nebulization treatments. Discussed her CT findings and given that this is her 3rd visit for similar complaints she would benefit from observation admission to make sure she does not have any recurrence of her symptoms and is on appropriate treatments. Patient comfortable with the plan as discussed the case with the hospitalist team who accepted the patient to a medical-surgical bed for observation admission. Medical Records Attestation: I reviewed the patient's medical records. Lab Data Attestation: I reviewed the patient's lab results. 02/14/25 14:55 02/14/25 14:55 Labs: Lab Results 02/14/25 Range/Units 14:55 WBC 5.6 (4.5-10.0) K/mm3 RBC 4.50 (4.2-5.4) M/mm3 Hgb 12.2 (12.0-15.0) g/dL Hct 38.5 (37.0-47.0) % MCV 85.6 (80-100) fl MCH 27.1 (26-34) pg MCHC 31.7 L (32-36) g/dl RDW 14.5 (11.5-14.5) % Plt Count 236 (150-375) k/mm3 MPV 10.1 (7.4-10.4) fl Immature Gran % (Auto) 0.2 (0-0.5) % Neut % (Auto) 39.8 L (45.5-73.1) % Lymph % (Auto) 38.3 (18.3-44.2) % [place] % (Auto) 18.3 H (2.6-8.5) % Eos % (Auto) 2.7 (0-4.4) % Baso % (Auto) 0.7 (0.2-1.2) % Lymph # (Auto) 2.15 (0.9-3.2) K/mm3 [place] # (Auto) 1.0 H (0.1-0.6) K/mm3 Eos # (Auto) 0.2 (0-0.3) K/mm3 Baso # (Auto) 0.0 (0.0-0.1) K/mm3 Abs Immat Gran (auto) 0.01 (0.00-0.031) K/mm3 Absolute Neuts (auto) 2.2 (1.3-6.7) K/mm3 Absolute Nucleated RBC 0.000 (0.0-0.012) K/mm3 Nucleated RBC % 0.0 (0.0-0.2) % PT 13.7 (11.1-14.7) Seconds INR 1.1 APTT 25.6 (22.3-36.8) Seconds Sodium 136 L (137-145) mmol/L Potassium 3.8 (3.4-5.0) mmol/L Chloride 105 (98-107) mmol/L Carbon Dioxide 24 (22-30) mmol/L Anion Gap 7 (4-12) mmol/L BUN 17 (7-17) mg/dL Creatinine 0.88 (0.7-1.0) mg/dL Estim Creat Clear Calc 74 ml/min Estimated GFR > 60 (59 - ) Glucose 104 (65-110) mg/dL Calcium 9.1 (8.4-10.2) mg/dL Magnesium 1.9 (1.6-2.3) mg/dL Total Bilirubin 0.3 (0.2-1.3) mg/dL AST 34 (14-36) U/L ALT 21 (6-35) U/L Alkaline Phosphatase 76 (38-126) U/L Troponin I < 0.012 (0.000-0.034) ng/mL NT-Pro-B Natriuret Pep < 20 (19.9-100) pg/mL Total Protein 6.8 (6.3-8.2) g/dL Albumin 3.7 (3.5-5.1) g/dL Salicylates 12.6 (2-20) mg/dL ABG Data ABG results: 02/14/25 14:55 VBG pH 7.367 VBG pCO2 38.6 L VBG pO2 27.4 L VBG HCO3 21.7 L O2 Delivery Device Room air O2 Liters/Min Not Reportable FiO2 21 Attestation: I personally reviewed and interpreted this ABG as follows: Interpretation: Normal pH Imaging Data Attestation: I personally reviewed and interpreted this imaging study as follows: My impression: Impressions Chest X-Ray 02/14/25 15:28 IMPRESSION: 1: NO ACUTE CARDIOPULMONARY DISEASE. Chest CTA 02/14/25 16:28 IMPRESSION: 1. No pulmonary embolism. 2. Minimal opacification in the left lung base which may indicate pneumonitis. Underlying fibrotic changes are seen in both lung bases. Discharge Plan Discharge Clinical Impression: Pneumonitis, SOB (shortness of breath) Patient Disposition: Still a Patient Condition: Stable
--- OUTSIDE RECORDS SUMMARY | 2025-02-14 14:46 | XMS_ITS | Clinical Summary ---
Author Organization [facility] Address [address] [place] [address] Care Team Providers Care Sap Solutions Architect Name Role Phone Sunshine Blancas NP Primary Care Provider [phone] Allergies No known active allergies Medications cyclobenzaprine [...] on file Legal Sex Female 6:58 PM TENNIS DIRECTOR Gender Identity Not on file Sexual Orientation Not on file Last Filed Vital Signs Vital Sign Reading Time Taken Comments Blood Pressure 165/109 07/16/2021 4:31 PM TENNIS DIRECTOR Pulse 86 07/16/2021 4:31 PM TENNIS DIRECTOR Temperature 36.7 C (98 F) 07/16/2021 3:13 PM TENNIS DIRECTOR Respiratory Rate 20 07/16/2021 4:31 PM TENNIS DIRECTOR Oxygen Saturation 97% 07/16/2021 4:31 PM TENNIS DIRECTOR Inhaled Oxygen Concentration - - Weight 141.2 kg (311 lb 4.6 oz) 07/16/2021 3:13 PM TENNIS DIRECTOR Height 157.5 cm (5' 2) 07/16/2021 3:13 PM TENNIS DIRECTOR Body Mass Index 56.94 07/16/2021 3:13 PM TENNIS DIRECTOR Plan of Treatment Not on file Insurance [facility] Care Teams Sap Solutions Architect Relationship Specialty Start Date End Date Sunshine Blancas NP [address] [place] [id number] PCP - General Nurse Practitioner 07/16/21
--- OUTSIDE RECORDS SUMMARY | 2025-02-14 14:46 | XMS_ITS | Referral Summary ---
Author Organization [facility] Address [address] [place] [address] Care Team Providers Care Signals Intelligence Analyst Name Role Phone Sunshine Blancas NP Primary Care Provider [phone] Allergies No known active allergies Medications cyclobenzaprine [...] on file Legal Sex Female 6:58 PM TITLE ABSTRACTOR Gender Identity Not on file Sexual Orientation Not on file Last Filed Vital Signs Vital Sign Reading Time Taken Comments Blood Pressure 165/109 07/16/2021 4:31 PM TITLE ABSTRACTOR Pulse 86 07/16/2021 4:31 PM TITLE ABSTRACTOR Temperature 36.7 C (98 F) 07/16/2021 3:13 PM TITLE ABSTRACTOR Respiratory Rate 20 07/16/2021 4:31 PM TITLE ABSTRACTOR Oxygen Saturation 97% 07/16/2021 4:31 PM TITLE ABSTRACTOR Inhaled Oxygen Concentration - - Weight 141.2 kg (311 lb 4.6 oz) 07/16/2021 3:13 PM TITLE ABSTRACTOR Height 157.5 cm (5' 2) 07/16/2021 3:13 PM TITLE ABSTRACTOR Body Mass Index 56.94 07/16/2021 3:13 PM TITLE ABSTRACTOR Plan of Treatment Not on file Insurance [facility] Care Teams Signals Intelligence Analyst Relationship Specialty Start Date End Date Sunshine Blancas NP [address] [place] [id number] PCP - General Nurse Practitioner 07/16/21
--- OUTSIDE RECORDS SUMMARY | 2025-02-14 14:46 | XMS_ITS | Continuity of Care Document ---
Author Organization [facility] Address [address] [place] [address] [place] [address] Phone Care Team Providers Care Egg Crater Name Role Phone Wilson Arriaza MD Unavailable Unavailable Allergies, Adverse Reactions, Alerts Substance Reaction Status Criticality No Known Allergies Active No Inform ation Medications Medication Instructions Dosage Effective Dates (start - stop) Status Comments [place] 5 mg-325 mg tablet take 1 tablet [...] Copied on Encounter OFFICE/OUTPA TIENT VISIT, EST [facility], [address], [place], [place], [address], [place] tel:[phone] [facility] Medicine HTN (chief complaint) hematuria1 (chief complaint) shoulder pain1 (chief complaint) Adhesive capsulitis of right shoulderHematuriaEs sential (primary) hypertension May- 6 Arsalan Rachel. [address], [place], [place], [address] , [place]. tel:[phone] Referring Provider: Susi Cel[address], [place], [place], [address]. tel:[phone] OFFICE/OUTPA TIENT VISIT, [facility], [address], [place], [place], [address], [place] tel:[phone] [facility] HLP (chief complaint) hematuria1 (chief complaint) low D (chief complaint) HTN1 (chief complaint) sinus (chief complaint) HematuriaMixed hyperlipidemiaMetab olic syndromeEssential (primary) hypertension Lalit- 6 Arsalan Rachel. [address], [place], [place], [address] , [place]. tel:[phone] Referring Provider: Susi Cel[address], [place], [place], [address]. tel:[phone] PREV VISIT, EST, AGE 40-64 [facility], [address], [place], [place], [address], [place] tel:[phone] [facility] PHysical (chief complaint) Encounter for general adult medical exam w abnormal findingsEssential (primary) hypertensionBody mass index (BMI) 45.0-49.9, adultHyperlipidemia , unspecified 6 Arsalan Stafford [address], [place], [place], [address] , [place]. tel:[phone] Referring Provider: Susi Cel[address], [place], [place], [address]. tel:[phone] OFFICE/OUTPA TIENT VISIT, [facility], [address], [place], [place], [address], [place] tel:[phone] [facility] Medicine sinus (chief complaint) HLP (chief complaint) HTN (chief complaint) Acute sinusitisMixed hyperlipidemiaEssen tial (primary) hypertension Nov-0 6 Arsalan Stafford [address], [address], [place], [place], [address] , [place]. tel:[phone] Referring Provider: Susi Celeste [address], [place], [place], [address]. tel:[phone] OFFICE/OUTPA TIENT VISIT, [facility], [address], [place], [place], [address], [place] tel:[phone] [facility] HTN1 (chief complaint) HLP (chief complaint) joint pain (chief complaint) Essential (primary) hypertensionMixed hyperlipidemiaBody mass index (BMI) 50-59.9 , adultChronic pain syndrome 6 Arsalan Stafford [address], [place], [place], [address] , [place]. [phone] Referring Provider: Susi Cel[address], [place], [place], [address]. tel:[phone] OFFICE/OUTPA TIENT VISIT, [facility], [address], [place], [place], [address], [place] tel:[phone] [facility] HTN (chief complaint) ankle pain (chief complaint) HLP (chief complaint) Dietary surveillance and counselingUnspecifi ed essential hypertensionHyperli pidaemiaAnkle pain Sep-2 2201 5 Arsalan Stafford [address], [place], [place], [address] , [place]. tel:[phone] Referring Provider: Susi Celeste [address], [place], [place], [address]. tel:[phone] OFFICE/OUTPA TIENT VISIT, [facility], [address], [place], [place], [address], [place] tel:[phone] [facility] HTN (chief complaint) ankle pain (chief complaint) Dietary surveillance and counselingBP - High blood pressureBMI 50.0 to 59.9Ankle pain 5 Arsalan Rachel. [address], [place], [place], [address] , [place]. [phone] Referring Provider: Susi Cel[address], [place], [place], [address]. tel:[phone] PREV VISIT, EST, AGE 40-64 [facility], [address], [place], [place], [address], [place] tel:[phone] [facility] Physical (chief complaint) Dietary surveillance and counselingRoutine Medical ExamRoutine Medical Exam [address] Ar[address], [place], [place], [address] , [place]. [phone] Referring Provider: Susi Celeste [address], [place], [place], [address]. tel:[phone] OFFICE/OUTPA TIENT VISIT, EST [facility], [address], [place], [place], [address], [place] tel:[phone] [facility] breast lesion (chief complaint) Hematuria (chief complaint) Dietary surveillance and counselingLump or mass in breastHEMATURIA NOSPolyp of corpus uteri [address] Arsal[address], [place], [place], [address] , [place]. [phone] Referring Provider: Susi Celeste [address], [place], [place], [address]. tel:[phone] OFFICE/OUTPA TIENT VISIT, EST [facility], [address], [place], [place], [address], [place] tel:[phone] [facility] HLP (chief complaint) Vitamin D (chief complaint) breast density (chief complaint) abdominal pain (chief complaint) hematuria (chief complaint) Other and unspecified hyperlipidemiaUnspe cified abnormal mammogramAbdominal PainHEMATURIA NOSDietary surveillance and counseling 3 Arsalan Rachel. [address], [address], [place], [place], [address] , [place]. tel:[phone] Referring Provider: Wilson Arriaza, Susi [address], [place], [place], [address]. tel:[phone] PREV VISIT, EST, AGE 40-64 [facility], [address], [place], [place], [address], [place] tel:[phone] [facility] Physical (chief complaint) Dietary surveillance and counselingRoutine Medical ExamRoutine Medical Exam 3 Arsalan Rachel. [address], [place], [place], [address] , [place]. tel:[phone] Family History Family Member Type Diagnosis Age At Onset Mother Problem (finding) Osteoporosis Brother Problem (finding) Cancer -lymphoma Father Problem (finding) Stroke Brother Problem (finding) Lymphoma Payers Payer name Insurance type Covered constitution party ID Authoriza tion(s) No Information Social [...] polyp. Pt had appointment with urology at [facility] and then she canceled it. [...] ordered Referral Referred To: Christian Powell [address] [place], [phone] Ordered: Referrals: Christian Powell. Evaluate and treat ordered Referral Ordered: DXA BONE DENSITY, AXIAL ordered Referral Ordered: Moises Hoang (related to Ankle pain) ordered Referral Ordered: KNEE XRAY TWO-VIEW Left ordered Referral Referred To: Moises Hoang [address] [place], [phone] Ordered: Referrals: Moises Hoang. Evaluate and treat [...] polyp. Pt had appointment with urology at [facility] and then she canceled it. [...] see her since she had surgery at [facility]. Pt called nadya and they will not [...] Mental Status Date Cognitive Assessment Orientation - [place] ed to time, place, person, situation.
[2025-02-14] MEDS: IPRATROPIUM BR 0.02% INH SOLN 0.5 MG/2.5 ML VIAL 1 MG INHALATION (14:54)
[2025-02-14] MEDS: ALBUTEROL SULFATE NEB 2.5 MG/3 ML INH 10 MG INHALATION (14:54)
[2025-02-14 15:02] LABS: Fractional Inspired Oxygen 21 %; HCO3 VBG 21.7 mEq/l (24.0-30.0); PCO2 VBG 38.6 mmHg (42.0-48.0); PO2 VBG 27.4 mmHg (35.0-45.0); pH VBG 7.367 (7.300-7.400)
[2025-02-14] MEDS: SODIUM CHLORIDE 0.9% IV 1,000 ML 999 ML IV CONT (15:07)
[2025-02-14] MEDS: MAGNESIUM SULF 2 GM/WATER 50ML 2 GM/50 ML BAG IVPB (15:07)
[2025-02-14 15:10] LABS: Device ROOM AIR
--- OUTSIDE RECORDS SUMMARY | 2025-02-14 15:11 | XMS_ITS | Continuity of Care Document ---
Author Organization [facility] Address [address] [place] [address] [place] [address] Phone Care Team Providers Care Photograph Tinter Name Role Phone Wilson Arriaza MD Unavailable [...] route every day 60 MG - Active [place] 5 mg-325 mg tablet take 1 tablet [...] Copied on Encounter OFFICE/OUTPA TIENT VISIT, EST [facility], [address], [place], [place], [address], [place] tel:[phone] [facility] Medicine HTN (chief complaint) hematuria1 (chief complaint) shoulder pain1 (chief complaint) Adhesive capsulitis of right shoulderHematuriaEs sential (primary) hypertension May- 6 Arsalan Rachel. [address], [address], [place], [place], [address] , [place]. tel:[phone] Referring Provider: Susi Celeste [address], [place], [place], [address]. tel:[phone] OFFICE/OUTPA TIENT VISIT, [facility], [address], [place], [place], [address], [place] tel:[phone] [facility] HLP (chief complaint) hematuria1 (chief complaint) low D (chief complaint) HTN1 (chief complaint) sinus (chief complaint) HematuriaMixed hyperlipidemiaMetab olic syndromeEssential (primary) hypertension Lalit- 6 Arsalan Rachel. [address], [address], [place], [place], [address] , [place]. tel:[phone] Referring Provider: Susi Celeste [address], [place], [place], [address]. tel:[phone] PREV VISIT, EST, AGE 40-64 [facility], [address], [place], [place], [address], [place] tel:[phone] [facility] Medicine PHysical (chief complaint) Encounter for general adult medical exam w abnormal findingsEssential (primary) hypertensionBody mass index (BMI) 45.0-49.9, adultHyperlipidemia , unspecified 6 Arsalan tSafford [address], [address], [place], [place], [address] , [place]. tel:[phone] Referring Provider: Susi Cel[address], [place], [place], [address]. tel:[phone] OFFICE/OUTPA TIENT VISIT, [facility], [address], [place], [place], [address], [place] tel:[phone] [facility] Medicine sinus (chief complaint) HLP (chief complaint) HTN (chief complaint) Acute sinusitisMixed hyperlipidemiaEssen tial (primary) hypertension Nov-0 6 Arsalan Stafford [address], [address], [place], [place], [address] , [place]. tel:[phone] Referring Provider: Susi Celeste [address], [place], [place], [address]. tel:[phone] OFFICE/OUTPA TIENT VISIT, [facility], [address], [place], [place], [address], [place] tel:[phone] [facility] HTN1 (chief complaint) HLP (chief complaint) joint pain (chief complaint) Essential (primary) hypertensionMixed hyperlipidemiaBody mass index (BMI) 50-59.9 , adultChronic pain syndrome 6 Arsalan Stafford [address], [address], [place], [place], [address] , [place]. [phone] Referring Provider: Susi Celeste [address], [place], [place], [address]. tel:[phone] OFFICE/OUTPA TIENT VISIT, [facility], [address], [place], [place], [address], [place] tel:[phone] [facility] HTN (chief complaint) ankle pain (chief complaint) HLP (chief complaint) Dietary surveillance and counselingUnspecifi ed essential hypertensionHyperli pidaemiaAnkle pain Sep-2 2201 5 Arsalan Stafford [address], [address], [place], [place], [address] , [place]. tel:[phone] Referring Provider: Susi Celeste [address], [place], [place], [address]. tel:[phone] OFFICE/OUTPA TIENT VISIT, [facility], [address], [place], [place], [address], [place] tel:[phone] [facility] HTN (chief complaint) ankle pain (chief complaint) Dietary surveillance and counselingBP - High blood pressureBMI 50.0 to 59.9Ankle pain 5 Arsalan Rachel. [address], [address], [place], [place], [address] , [place]. [phone] Referring Provider: Susi Celeste [address], [place], [place], [address]. tel:[phone] PREV VISIT, EST, AGE 40-64 [facility], [address], [place], [place], [address], [place] tel:[phone] [facility] Physical (chief complaint) Dietary surveillance and counselingRoutine Medical ExamRoutine Medical Exam 5 Arsalan [address], [place], [place], [address] , [place]. [phone] Referring Provider: Susi Celeste [address], [place], [place], [address]. tel:[phone] OFFICE/OUTPA TIENT VISIT, EST [facility], [address], [place], [place], [address], [place] tel:[phone] [facility] breast lesion (chief complaint) Hematuria (chief complaint) Dietary surveillance and counselingLump or mass in breastHEMATURIA NOSPolyp of corpus uteri 3 Arsalan Goldman [address], [place], [place], [address] , [place]. [phone] Referring Provider: Susi Celeste [address], [place], [place], [address]. tel:[phone] OFFICE/OUTPA TIENT VISIT, EST [facility], [address], [place], [place], [address], [place] tel:[phone] [facility] HLP (chief complaint) Vitamin D (chief complaint) breast density (chief complaint) abdominal pain (chief complaint) hematuria (chief complaint) Other and unspecified hyperlipidemiaUnspe cified abnormal mammogramAbdominal PainHEMATURIA NOSDietary surveillance and counseling 3 Arsalan Rachel. [address], [address], [place], [place], [address] , [place]. tel:[phone] Referring Provider: Wilson Arriaza, Susi [address], [place], [place], [address]. tel:[phone] PREV VISIT, EST, AGE 40-64 [facility], [address], [place], [place], [address], [place] tel:[phone] [facility] Physical (chief complaint) Dietary surveillance and counselingRoutine Medical ExamRoutine Medical Exam 3 Arsalan Rachel. [address], [place], [place], [address] , [place]. tel:[phone] Family History Family Member Type Diagnosis Age [...] polyp. Pt had appointment with urology at [facility] and then she canceled it. Pt [...] ordered Referral Referred To: Christian Powell [address] [place], [phone] Ordered: Referrals: Christian Powell. Evaluate and treat ordered Referral Ordered: DXA BONE DENSITY, AXIAL ordered Referral Ordered: Moises Hoang (related to Ankle pain) ordered Referral Ordered: KNEE XRAY TWO-VIEW Left ordered Referral Referred To: Moises Hoang [address] [place], [phone] Ordered: Referrals: Moises Hoang. Evaluate and treat [...] her since she had surgery at [facility]. Pt called [facility] and they will not see her.k Pt [...] Mental Status Date Cognitive Assessment Orientation - [place] ed to time, place, person, situation.
--- OUTSIDE RECORDS SUMMARY | 2025-02-14 15:11 | XMS_ITS | Referral Summary ---
Author Organization [facility] Address [address] [place] [address] Care Team Providers Care Log Truck Driver Name Role Phone Sunshine Blancas NP Primary Care Provider [phone] Allergies No known active allergies Medications cyclobenzaprine [...] on file Legal Sex Female 6:58 PM DENTAL APPLIANCE MECHANIC Gender Identity Not on file Sexual Orientation Not on file Last Filed Vital Signs Vital Sign Reading Time Taken Comments Blood Pressure 165/109 07/16/2021 4:31 PM DENTAL APPLIANCE MECHANIC Pulse 86 07/16/2021 4:31 PM DENTAL APPLIANCE MECHANIC Temperature 36.7 C (98 F) 07/16/2021 3:13 PM DENTAL APPLIANCE MECHANIC Respiratory Rate 20 07/16/2021 4:31 PM DENTAL APPLIANCE MECHANIC Oxygen Saturation 97% 07/16/2021 4:31 PM DENTAL APPLIANCE MECHANIC Inhaled Oxygen Concentration - - Weight 141.2 kg (311 lb 4.6 oz) 07/16/2021 3:13 PM DENTAL APPLIANCE MECHANIC Height 157.5 cm (5' 2) 07/16/2021 3:13 PM DENTAL APPLIANCE MECHANIC Body Mass Index 56.94 07/16/2021 3:13 PM DENTAL APPLIANCE MECHANIC Plan of Treatment Not on file Insurance [facility] Care Teams Log Truck Driver Relationship Specialty Start Date End Date Sunshine Blancas NP [address] [place] [id number] PCP - General Nurse Practitioner 07/16/21
--- OUTSIDE RECORDS SUMMARY | 2025-02-14 15:11 | XMS_ITS | Clinical Summary ---
Author Organization [facility] Address [address] [place] [address] Care Team Providers Care Spine Surgeon Name Role Phone Sunshine Blancas NP Primary Care Provider [phone] Allergies No known active allergies Medications cyclobenzaprine [...] on file Legal Sex Female 6:58 PM CLAIM SERVICE REPRESENTATIVE Gender Identity Not on file Sexual Orientation Not on file Last Filed Vital Signs Vital Sign Reading Time Taken Comments Blood Pressure 165/109 07/16/2021 4:31 PM CLAIM SERVICE REPRESENTATIVE Pulse 86 07/16/2021 4:31 PM CLAIM SERVICE REPRESENTATIVE Temperature 36.7 C (98 F) 07/16/2021 3:13 PM CLAIM SERVICE REPRESENTATIVE Respiratory Rate 20 07/16/2021 4:31 PM CLAIM SERVICE REPRESENTATIVE Oxygen Saturation 97% 07/16/2021 4:31 PM CLAIM SERVICE REPRESENTATIVE Inhaled Oxygen Concentration - - Weight 141.2 kg (311 lb 4.6 oz) 07/16/2021 3:13 PM CLAIM SERVICE REPRESENTATIVE Height 157.5 cm (5' 2) 07/16/2021 3:13 PM CLAIM SERVICE REPRESENTATIVE Body Mass Index 56.94 07/16/2021 3:13 PM CLAIM SERVICE REPRESENTATIVE Plan of Treatment Not on file Insurance [facility] Care Teams Spine Surgeon Relationship Specialty Start Date End Date Sunshine Blancas NP [address] [place] [id number] PCP - General Nurse Practitioner 07/16/21
[2025-02-14 15:13] LABS: Basophils Percent Auto 0.7 % (0.2-1.2); Eosinophils Absolute Auto 0.2 K/mm3 (0-0.3); Eosinophils Percent Auto 2.7 % (0-4.4); Hematocrit 38.5 % (37.0-47.0); Hemoglobin 12.2 g/dL (12.0-15.0); Immature Granulocyte Absolute 0.01 K/mm3 (0.00-0.031); Immature Granulocyte Percent A 0.2 % (0-0.5); Lymphocytes Absolute Auto 2.15 K/mm3 (0.9-3.2); Lymphocytes Percent Auto 38.3 % (18.3-44.2); Mean Corpuscular HGB Conc 31.7 g/dl (32-36); Mean Corpuscular Hemoglobin 27.1 pg (26-34); Mean Corpuscular Volume 85.6 fl (80-100); Mean Platelet Volume 10.1 fl (7.4-10.4); Monocytes Percent Auto 18.3 % (2.6-8.5); Neutrophils Absolute Auto 2.2 K/mm3 (1.3-6.7); Neutrophils Percent Auto 39.8 % (45.5-73.1); Platelet Count Result 236 k/mm3 (150-375); Red Cell Distribution Width 14.5 % (11.5-14.5); White Blood Count 5.6 K/mm3 (4.5-10.0)
[2025-02-14 15:15] LABS: Alanine Aminotransferase 21 U/L (6-35); Albumin Level 3.7 g/dL (3.5-5.1); Alkaline Phosphatase 76 U/L (38-126); Anion Gap 7 mmol/L (4-12); Aspartate Amino Transferase 34 U/L (14-36); Bilirubin,Total 0.3 mg/dL (0.2-1.3); Blood Urea Nitrogen 17 mg/dL (7-17); Calcium 9.1 mg/dL (8.4-10.2); Carbon Dioxide 24 mmol/L (22-30); Chloride 105 mmol/L (98-107); Estimated CRCL calculation 74 ml/min; Estimated Glomerular Filt Rate > 60; Glucose 104 mg/dL (65-110); Magnesium 1.9 mg/dL (1.6-2.3); Potassium 3.8 mmol/L (3.4-5.0); Sodium 136 mmol/L (137-145); Total Protein 6.8 g/dL (6.3-8.2)
[2025-02-14 15:19] LABS: INR 1.1; Partial Thromboplastin Time 25.6 Seconds (22.3-36.8); Prothrombin Time 13.7 Seconds (11.1-14.7)
[2025-02-14 15:27] LABS: NT Pro B Type Natriuretic Pept < 20 pg/mL (19.9-100); Troponin I < 0.012 ng/mL (0.000-0.034)
[2025-02-14 15:59] LABS: Salicylate 12.6 mg/dL (2-20)
--- NOTE | 2025-02-14 17:29 | P.HP_ITS ---
H&P: HPI History of Present Illness Date/Time: 02/14/25 17:29 Chief Complaint: Shortness of breath Narrative: 64-year-old female history of asthma and hypertension presents the hospital with shortness of breath. Patient has been seen in the ED for the last 2 days for shortness of breath and sent home. She states that she is constantly using the inhaler she got with very little relief. Patient states that last week she was at her baseline health. Patient with audible inspiratory and expiratory wheezes. Unable to talk in full sentences. In the ED CBCs within normal limits, sodium 136 otherwise BMP is within normal limits, troponins negative, yesterday influenza A/B RSV and COVID negative. Chest x-ray with no acute process, chest CTA no PE, possible pneumonitis. EKG shows sinus rhythm. Review of Systems Review of Systems: 12 systems were reviewed and are negativ e except for as per HPI. [facility] Past Medical History Medical History (Updated 02/14/25 @ 22:46 by Nereyda Ascencio, KIMBERLY) History of blood clots Post-menopausal History of blood transfusion Fractures C. difficile colitis Arthritis Bronchitis Asthma HTN (hypertension) Surgical History Surgical History History of orthopedic surgery L intermedullary nail History of ankle surgery right side Hx of appendectomy Hx of tonsillectomy Social History Social History Smoking status: Never smoker Second hand tobacco smoke exposure: No Alcohol intake: never Substance use: never Substance use type: does not use Do You Feel Safe in your Home?: Yes Lack of Transportation: No Lack of Food: Never True Current Housing: I Have Housing Concerned About Future Housing: No Difficulty Paying Gas/Electric Bills: No Difficulty Paying for Meds: No Currently Unemployed: No Education: High School Diploma/GED Difficulty w/ Childcare or Family Care: No Living arrangements: with family Gender identity (if verbalized by the patient): Female Spiritual care concerns: No Meds Home Medications and Allergies Home Medications ?Medication ?Instructions ?Recorded ?Confirmed ?Type amoxicillin 875 mg-potassium 1 tablet PO Q12H 10 days #20 tabs 07/24/24 02/14/25 Rx clavulanate 125 mg tablet albuterol sulfate 90 mcg/actuation 2 puff inhalation Q4-6H PRN 07/31/24 02/14/25 Rx aerosol inhaler shortness of breath or wheezing #8.5 grams benzonatate 200 mg capsule 200 mg PO TID PRN cough #20 caps 07/31/24 02/14/25 Rx guaifenesin 600 mg tablet, 600 mg PO BID 10 days #20 tabs 07/31/24 02/14/25 Rx extended release 12 hr (Mucinex) inhalational spacing device #1 ea 07/31/24 02/14/25 Rx (Aerochamber Plus Z Stat spacer) acetaminophen 500 mg capsule 1,000 mg (2 x 500 mg) PO Q6H PRN 12/02/24 02/14/25 Rx pain #30 caps ibuprofen 600 mg tablet 600 mg PO TID PRN pain #30 tabs 12/02/24 02/14/25 Rx inhalational spacing device (Mike #1 ea 02/12/25 02/14/25 Rx Aerosol [place] Enhancer spacer) Allergies Allergy/AdvReac Type Severity Reaction Status Date / Time No Known Allergies Allergy Verified 02/12/25 18:06 Vital Signs Vital Signs - 24 hr 02/14/25 14:21 02/14/25 14:26 02/14/25 14:27 Temperature 97.4 F L Pulse Rate 87 Respiratory Rate 21 H Blood Pressure 163/76 H Pulse Oximetry 96 Oxygen Delivery Room Air Room Air Room Air 02/14/25 14:55 02/14/25 15:30 02/14/25 15:59 Temperature Pulse Rate 83 85 92 Respiratory Rate 18 18 20 Blood Pressure 170/56 H Pulse Oximetry 98 Oxygen Delivery 02/14/25 17:02 Temperature Pulse Rate 88 Respiratory Rate 21 H Blood Pressure 174/41 H Pulse Oximetry 96 Oxygen Delivery Exam Narrative: General: Ill-appearing, HEENT: normocephalic, atraumatic. Mucous membranes moist. EOMI, PERRLA, bilateral sclera anicteric, no conjunctival injection. Neck supple without JVD, lymphadenopathy, or bruit. Respiratory: Severe inspiratory and expiratory wheezes Cardiovascular: Regular rate and rhythm, normal S1-S2 upon ascultation. No murmurs, rubs, or clicks. PMI is nondisplaced, capillary refill less than 3 second. Abdomen: Soft, round, no pulsatile masses, nondistended and nontender. No rebound, no guarding. No CVA tenderness, no hepatosplenomegaly. Bowel sounds present to all four quadrants. No high pitch or tinkling sounds, resonant to percussion. Extremities: No cyanosis, clubbing, Pulses are palpable 2/2. Plus two pedal edema Neuro: Alert and orientated x 4. PERRLA. Cranial nerves 2-12 intact without focal deficit. Skin: Warm, dry, and intact, without rash, erythema, or lesion. Psych: pleasant, cooperative, normal speech, normal affect, no hallucinations, no dysarthia H&P: Results Labs Labs: Short CBC 02/14/25 Range/Units 14:55 WBC 5.6 (4.5-10.0) K/mm3 Hgb 12.2 (12.0-15.0) g/dL Hct 38.5 (37.0-47.0) % Plt Count 236 (150-375) k/mm3 BMP 02/14/25 14:55 Sodium 136 L Potassium 3.8 Chloride 105 Carbon Dioxide 24 BUN 17 Creatinine 0.88 Glucose 104 Calcium 9.1 Cardiac Enzymes 02/14/25 Range/Units 14:55 Troponin I < 0.012 (0.000-0.034) ng/mL Liver Function 02/14/25 Range/Units 14:55 Total Bilirubin 0.3 (0.2-1.3) mg/dL AST 34 (14-36) U/L ALT 21 (6-35) U/L Alkaline Phosphatase 76 (38-126) U/L Albumin 3.7 (3.5-5.1) g/dL Assessment and Plan Assessment and plan (1) Pneumonitis: Code(s): J98.4 - Other disorders of lung Status: Acute Assessment and Plan: exacerbation of asthma versus pneumonia versus other Atypical pneumonia Rocephin and azithromycin Guaifenesin DuoNebs Q 4 2 g Mag given in ED Patient may benefit from a Pulmonary consult as workup only shows minimal opacities on chest x-ray (2) HTN (hypertension): Code(s): I10 - Essential (primary) hypertension Status: Acute Assessment and Plan: Patient not on hypertension medications Continue to monitor (3) History of blood clots: Code(s): Z86.718 - Personal history of other venous thrombosis and embolism Status: Acute Assessment and Plan: CTA negative for PE Lovenox Quality VTE Prophylaxis VTE prophylaxis: mechanical ordered and pharmacologic ordered Hospitalist MIPS Advance Care Plan I have confirmed that the patient's Advanced Care Plan is present, code status is documented, or surrogate decision maker is listed in patient medical record.: Yes Medication Reconciliation I have utilized all available resources to obtain, update and review the patients current medications (includes all prescriptions, OTC, herbals, cannabis, and nutritional supplements).: Yes
[2025-02-14] MEDS: AZITHROMYCIN 500 MG/NS 250 ML 500 MG/250 ML BAG 250 MG IVPB (17:35)
[2025-02-14] MEDS: guaiFENesin/DEXTROMETHORPHAN 10 ML UDC PO ×2 (18:20→21:48)
--- NOTE | 2025-02-14 18:25 | ADMGEN ---
This patient, Lori Barnard, was admitted to [facility] Surg Room 309-01. Patient/family oriented to hospital policies and general routines including ID bracelet, bed and alarms, visiting hours, pain management, procedures, bathroom and other care routines, personal items, smoking policy, room service/diet, and visiting hours. Information on how to activate the Rapid Response Team has been discussed. Patient/Family are encouraged to report perceived risks to care and to ask questions if they do not understand what they are told or what they should do.
[2025-02-14] MEDS: IPRATROPIUM 0.5 MG/ALBUTEROL SULFATE 2.5 MG AMPUL.NEB 3 ML INHALATION (20:55)
[2025-02-14] MEDS: ALPRAZolam (*CRX) 0.125 MG TABLET PO (23:30)
[2025-02-15] VITALS (15 sets, daily range): BP systolic 133–161; BP diastolic 59–80; PULSE 79–101; RESP 18–22; TEMP 36.3–37.2; O2SAT 91–96
[2025-02-15] MEDS: ACETAMINOPHEN 325 MG TABLET 650 MG PO ×2 (01:37→20:29)
[2025-02-15] MEDS: BENZONATATE 100 MG CAPSULE 200 MG PO ×3 (01:37→16:34)
[2025-02-15] MEDS: ONDANSETRON INJ 4 MG/2 ML VIAL IV PUSH ×2 (01:38→16:00)
[2025-02-15 06:28] LABS: Basophils Percent Auto 0.9 % (0.2-1.2); Eosinophils Absolute Auto 0.1 K/mm3 (0-0.3); Eosinophils Percent Auto 2.1 % (0-4.4); Hematocrit 39.3 % (37.0-47.0); Hemoglobin 12.1 g/dL (12.0-15.0); Immature Granulocyte Absolute 0.01 K/mm3 (0.00-0.031); Immature Granulocyte Percent A 0.2 % (0-0.5); Lymphocytes Absolute Auto 1.48 K/mm3 (0.9-3.2); Lymphocytes Percent Auto 34.8 % (18.3-44.2); Mean Corpuscular HGB Conc 30.8 g/dl (32-36); Mean Corpuscular Hemoglobin 26.8 pg (26-34); Mean Corpuscular Volume 87.1 fl (80-100); Mean Platelet Volume 10.3 fl (7.4-10.4); Monocytes Percent Auto 22.4 % (2.6-8.5); Neutrophils Absolute Auto 1.7 K/mm3 (1.3-6.7); Neutrophils Percent Auto 39.6 % (45.5-73.1); Platelet Count Result 232 k/mm3 (150-375); Red Blood Count 4.51 M/mm3 (4.2-5.4); Red Cell Distribution Width 14.6 % (11.5-14.5); White Blood Count 4.3 K/mm3 (4.5-10.0)
[2025-02-15 06:47] LABS: Anion Gap 7 mmol/L (4-12); Blood Urea Nitrogen 11 mg/dL (7-17); Calcium 8.5 mg/dL (8.4-10.2); Carbon Dioxide 23 mmol/L (22-30); Chloride 106 mmol/L (98-107); Estimated CRCL calculation 93 ml/min; Estimated Glomerular Filt Rate > 60; Glucose 106 mg/dL (65-110); Potassium 3.7 mmol/L (3.4-5.0); Sodium 136 mmol/L (137-145)
[2025-02-15] MEDS: IPRATROPIUM 0.5 MG/ALBUTEROL SULFATE 2.5 MG AMPUL.NEB 3 ML INHALATION ×5 (08:50→23:00)
[2025-02-15] MEDS: guaiFENesin 12 HR 600 MG TABCR 1200 MG PO ×2 (09:10→16:34)
[2025-02-15] MEDS: IBUPROFEN 600 MG TABLET PO ×2 (09:10→16:33)
[2025-02-15] MEDS: ALPRAZolam (*CRX) 0.125 MG TABLET PO ×3 (09:11→21:50)
[2025-02-15] MEDS: ENOXAPARIN 40 MG/0.4 ML SYRINGE SUB-Q (09:11)
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
[2025-02-15 11:45] LABS: Glucose Point of Care 98 mg/dl (65-105)
[2025-02-15] MEDS: LIDOCAINE 5% PATCH 1 PATCH TRANSDERM (12:43)
[2025-02-15] MEDS: methylPREDNISolone SOD SUCC 125 MG VIAL IV PUSH (12:44)
[2025-02-15 16:29] LABS: Glucose Point of Care 169 mg/dl (65-105)
[2025-02-15] MEDS: AZITHROMYCIN 500 MG/NS 250 ML 500 MG/250 ML BAG 250 MG IVPB (17:42)
[2025-02-15] MEDS: FLUTICASONE/SALMETEROL 230-21 MCG INHALER 1 PUFF 2 PUFF INHALATION (19:52)
[2025-02-15] MEDS: CYCLOBENZAPRINE HCL 5 MG TABLET PO (20:29)
[2025-02-15] MEDS: methylPREDNISolone SOD SUCC 40 MG VIAL IV PUSH (21:50)
[2025-02-16] VITALS (11 sets, daily range): BP systolic 143–145; BP diastolic 54–65; PULSE 76–105; RESP 16–24; TEMP 36.2–36.4; O2SAT 93–96
[2025-02-16] MEDS: IBUPROFEN 600 MG TABLET PO (02:36)
[2025-02-16] MEDS: BENZONATATE 100 MG CAPSULE 200 MG PO (02:37)
[2025-02-16] MEDS: ACETAMINOPHEN 325 MG TABLET 650 MG PO ×2 (03:14→08:43)
[2025-02-16] MEDS: CYCLOBENZAPRINE HCL 5 MG TABLET PO (06:19)
[2025-02-16] MEDS: methylPREDNISolone SOD SUCC 40 MG VIAL IV PUSH ×3 (06:19→21:39)
--- NOTE | 2025-02-16 06:44 | PCRCNOTE ---
Window of time for administration has passed. See next scheduled administration.
[2025-02-16 07:44] LABS: Glucose Point of Care 150 mg/dl (65-105)
[2025-02-16] MEDS: IPRATROPIUM 0.5 MG/ALBUTEROL SULFATE 2.5 MG AMPUL.NEB 3 ML INHALATION ×4 (08:23→20:52)
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
[2025-02-16] MEDS: FLUTICASONE/SALMETEROL 230-21 MCG INHALER 1 PUFF 2 PUFF INHALATION ×2 (08:29→20:56)
[2025-02-16] MEDS: guaiFENesin 12 HR 600 MG TABCR 1200 MG PO ×2 (08:41→17:00)
[2025-02-16] MEDS: ALPRAZolam (*CRX) 0.125 MG TABLET PO (08:42)
[2025-02-16] MEDS: ENOXAPARIN 40 MG/0.4 ML SYRINGE SUB-Q (08:42)
[2025-02-16] MEDS: LIDOCAINE 5% PATCH 1 PATCH TRANSDERM (08:45)
[2025-02-16 11:59] LABS: Glucose Point of Care 176 mg/dl (65-105)
[2025-02-16 12:54] LABS: Hemoglobin A1C 5.9 % (<5.7)
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
[2025-02-16] MEDS: SALINE 0.65% NAS SOLN 44 ML BTL 1 SPRAY NASAL (17:00)
[2025-02-16 17:06] LABS: Glucose Point of Care 143 mg/dl (65-105)
[2025-02-16] MEDS: AZITHROMYCIN 500 MG/NS 250 ML 500 MG/250 ML BAG 250 MG IVPB (18:14)
[2025-02-16] MEDS: SUMAtriptan SUCCINATE 25 MG TABLET PO (21:38)
[2025-02-16] MEDS: FLUTICASONE PROPIONATE 0.05% NA SPR 16 GM BTL (*BKC) 1 SPRAY NASAL (21:39)
[2025-02-17] VITALS (8 sets, daily range): BP systolic 149; BP diastolic 75; PULSE 82–93; RESP 18–22; TEMP 36.4; O2SAT 95–96
[2025-02-17] MEDS: IPRATROPIUM 0.5 MG/ALBUTEROL SULFATE 2.5 MG AMPUL.NEB 3 ML INHALATION ×4 (00:16→11:05)
[2025-02-17] MEDS: ACETAMINOPHEN/ASPIRIN/CAFFEINE 250-250-65 MG TABLET 1 TABLET PO (04:57)
[2025-02-17 07:28] LABS: Glucose Point of Care 128 mg/dl (65-105)
[2025-02-17 07:40] LABS: Glucose Point of Care 144 mg/dl (65-105)
[2025-02-17] MEDS: FLUTICASONE/SALMETEROL 230-21 MCG INHALER 1 PUFF 2 PUFF INHALATION (08:31)
[2025-02-17] MEDS: predniSONE 20 MG TABLET 40 MG PO (09:13)
[2025-02-17] MEDS: guaiFENesin 12 HR 600 MG TABCR 1200 MG PO (09:14)
[2025-02-17] MEDS: FLUTICASONE PROPIONATE 0.05% NA SPR 16 GM BTL (*BKC) 1 SPRAY NASAL (09:14)
[2025-02-17] MEDS: ENOXAPARIN 40 MG/0.4 ML SYRINGE SUB-Q (09:14)
[2025-02-17] MEDS: LIDOCAINE 5% PATCH 1 PATCH TRANSDERM (09:15)
[2025-02-17] MEDS: IBUPROFEN 600 MG TABLET PO (09:17)
[2025-02-17] MEDS: SALINE 0.65% NAS SOLN 44 ML BTL 1 SPRAY NASAL (09:26)
--- NOTE | 2025-02-17 13:16 | PC.NURSE ---
Pt had IV removed by orientating nurse. Orientating nurse left room to print discharge packet. Before they could go back in there, pt walked out. Pt was called and given discharge instructions. Pt voiced understanding, but said she may come back tomorrow for her packet and said if she doesn't come back in 24 hours we should shred the paperwork. Packet near varnishing unit operator. Charge nurse and supervisor twisting department have been notified. Robert Mckeon/Zita Camargo, Margie Porter
== END 2025-02-17 12:15 | disposition home or self-care (01) | DRG 206 ==
LOC: ANHED 14:35 → ANH3MEDSUR 18:05
PROVIDERS: Nurse Practitioner Gerontology; Admitting Provider Internal Medicine; Emergency Provider Student in an Organized Health Care Education/Training Program; PCP Nurse Practitioner Family; Visit Provider Nurse Practitioner Acute Care
DX: J98.4 Other disorders of lung (principal); Z68.43 Body mass index [BMI] 50.0-59.9, adult; J01.90 Acute sinusitis, unspecified; J45.901 Unspecified asthma with (acute) exacerbation; I10 Essential (primary) hypertension; J44.9 Chronic obstructive pulmonary disease, unspecified; E66.01 Morbid (severe) obesity due to excess calories; M62.838 Other muscle spasm; G43.909 Migraine, unspecified, not intractable, without status migrainosus; M19.90 Unspecified osteoarthritis, unspecified site; Z90.49 Acquired absence of other specified parts of digestive tract; Z86.711 Personal history of pulmonary embolism; Z20.822 Contact with and (suspected) exposure to COVID-19
CPT/HCPCS: 36415; 71045; 71275; 80048; 80053; 80179; 82803; 82948; 83036; 83735; 83880; 84484; 85025; 85610; 85730; 93005; 94640; 96365; 96372; 96375; 97161; 99285; A9270; G0378; J0456; J0696; J1650; J2405; J2919; J3475; J7030; J7512; Q9967

== ENCOUNTER 2025-02-18 04:25 | Inpatient (IN) | payer MEDICARE, MEDICAID, SELFPAY ==
[2025-02-18] VITALS (16 sets, daily range): BP systolic 145–202; BP diastolic 65–96; PULSE 71–93; RESP 14–24; TEMP 36.2–36.7; O2SAT 96–100; BMI 57.7
--- NOTE | ~2025-02-18 | XR_ITS ---
Portable chest x-ray Comparison: 02/14/2025 Clinical History: Cough Findings: Lungs are clear, without focal consolidation, pleural effusion, or pneumothorax. Cardiome diastinal silhouette is stable. Bones and soft tissues are unremarkable. Impression: Clear lungs. Reviewed, dictated and finalized at location . Impression: Clear lungs.
--- NOTE | 2025-02-18 04:28 | ECG_ITS ---
Test Date: 2025-02-18 04:42:10 Measurements Intervals [place] Rate: 75 P: 55 W[place]: 182 QRS: 48 QRSD: 97 T: 56 QT: 357 QTc: 399 Interpretive Statements SINUS RHYTHM BASELINE ARTIFACT- I, II, III, AVR, AVL, AVF, V1-V2 NORMAL ECG Compared to ECG 02/14/2025 14:25:14 No significant changes Electronically Signed On 02-18-2025 06:24:01 CDT by Lemuel Monson D.O.
--- OUTSIDE RECORDS SUMMARY | 2025-02-18 04:28 | XMS_ITS | Clinical Summary ---
Author Organization [facility] Address [address] [place] [address] Care Team Providers Care Gyroscopic Instrument Mechanic Name Role Phone Sunshine Blancas ERP MANAGER Primary Care Provider [phone] Allergies No known active allergies Medications multi vitamin/minera ls (THERA-M ENHANCED) tablet Take 1 tablet by mouth daily. Active Spacer/Aero-Ho lding Chambers ([facility]) Device see administration instructions. 4 Active Active [...] acute cor pulmonale, unspecified pulmonary embolism type ([facility]) 11/10/2018 08/17/2024 Cough 11/10/2018 07/23/2021 Hip pain, right 09/20/2017 09/29/2023 Hyperglycemia 06/09/2017 09/29/2023 Breast lump 08/30/2013 08/17/2024 Hematuria 08/14/2013 08/17/2024 Abdominal pain 08/14/2013 07/23/2021 Closed fracture of rib 11/04/201008/17 Closed fracture of femur 11/04/2010 Encounters Date Type Department Care Team Description 02/12/2025 Scan HEALTH INFO SRVCS Scanned, Doc Med Group 12/02/2024 Scan MG HEALTH INFO SRVCS Scanned, Doc Med Group Lab (SCAN); Image (SCAN); CT (SCAN) from Last 3 Months Immunizations Immunization Administration Dates Next Due Fluzone (IIV3, Trivalent, 0. 5 ML Prefilled Syringe) 08/17/2024 Fluzone 6 Months+ Quad (0.5 mL Prefilled Syringe) 09/29/2023,06/11/2022,07/23/2021,2019,06/29/2019 Influenza (Generic) 06/09/2017 Influenza Adult (Generic) 06/06/2018,09/10/2012 [...] Comments Blood Pressure 134/80 08/17/2024 10:52 AM [facility] Pulse 90 08/17/2024 10:52 AM [facility] Temperature 36.3 C (97.4 F) 08/17/2024 10:52 AM [facility] Respiratory Rate 24 08/17/2024 10:5 2 AM [facility] Oxygen Saturation 96% 08/17/2024 10: 52 AM [facility] Inhaled Oxygen Concentration - - Weight 139.6 kg (307 lb 12.8 oz) 2023 10:52 AM [facility] Height 157.5 cm (5' 2) 08/17/2024 10:5 2 AM [facility] Body Mass Index 56.3 08/17/2024 10:52 AM [facility] Plan of Treatment Health Maintenance Due Date Last Done Comments Colorectal Cancer Screening Colonoscopy (10 Years) 1959 Mammogram Screening 1999 Pneumococcal Vaccine: 50+ Years (1 of 1 - PCV) 2009 Zoster Vaccines (1 of 2) 2009 RSV Immunization or 60+ Years (1 - Risk 60-74 years 1-dose series) 2019 PHQ-2 (Physician [place]) 09/05/2024 09/29/2023 Dexa Scan (General) 2024 DTaP, Tdap and Td Vaccines (2 - Td or Tdap) 12/06/2024 12/06/2014 COVID-19 Vaccine ( season) 2025 08/17/2024, 09/27/2023, 04/15/2022, Additional history exists Hepatitis C Completed 09/29/2023 Meningococcal B Vaccine Aged Out No l onger eligible based on patient's age to complete this topic Meningococcal Vaccine Aged Out No aby bel eligible based on patient's age to complete this topic RSV Immunizations Under 20 Months Aged Out No longer eligible based on patient's age to complete this topic Procedures Procedure Name Priority Date/Time Associated Diagnosis Comments CT GENERIC 12/02/2024 OUTSIDE LAB (SCAN ORDER) 12/02/2024 OUTSIDE LAB (SCAN ORDER) 12/02/2024 OUTSIDE LAB (SCAN ORDER) 12/02/2024 IMAGE GENERIC 12/02/2024 HEPATITIS C ANTIBODY Routine 09/29/2023 10:29 AM [facility] Encounter for hepatitis C screening test for low risk patient from Last 3 Months or Most Recently Relevant to Health Maintenance Results * CT GENERIC (12/02/2024) Anatomical Region Laterality Modality Other 12/02/2024 [facility] Scanned SCANNING Final Resu lt * OUTSIDE LAB (SCAN ORDER) (12/02/2024) Only the most recent of3 resultswithin the time period is included. 12/02/2024 [facility] Scanned SCANNING Final Resu lt * IMAGE GENERIC (12/02/2024) Anatomical Region Laterality Modality Other 12/02/2024 Result [facility] Scanned SCANNING Final Resu lt * HEPATITIS C ANTIBODY ([facility] ONLY) (09/29/2023 10:29 AM [facility]) HEPATITIS C AB NON-REACTI VE NON-REACT MICHAEL 09/29/2023 7:15 PM [facility] Comment: ANTIBODIES TO HCV NOT DETECTED. DOES NOT EXCLUDE THE POSSIBILITY OF EXPOSURE TO HCV. 09/29/2023 10:2 9 AM [facility] Sunshine Blancas ERP MANAGER LABORATORY Final Result [facility] [address] [place] [address], [id number] from Last 3 Months or Most Recently Relevant to Health Maintenance Insurance [place] [employer] MEDICAID Care Teams Gyroscopic Instrument Mechanic Relationship Specialty Start Date End Date Sunshine Blancas FNP [address] [place] [address] PCP - General 12/22/16
--- OUTSIDE RECORDS SUMMARY | 2025-02-18 04:28 | XMS_ITS | Referral Summary ---
Author Organization [facility] Address [address] [place] [address] Care Team Providers Care Maternal Fetal Physician Name Role Phone Sunshine Blancas NP Primary Care Provider [phone] Allergies No known active allergies Medications cyclobenzaprine [...] on file Legal Sex Female 6:58 PM PYRIDINE OPERATOR Gender Identity Not on file Sexual Orientation Not on file Last Filed Vital Signs Vital Sign Reading Time Taken Comments Blood Pressure 165/109 07/16/2021 4:31 PM PYRIDINE OPERATOR Pulse 86 07/16/2021 4:31 PM PYRIDINE OPERATOR Temperature 36.7 C (98 F) 07/16/2021 3:13 PM PYRIDINE OPERATOR Respiratory Rate 20 07/16/2021 4:31 PM PYRIDINE OPERATOR Oxygen Saturation 97% 07/16/2021 4:31 PM PYRIDINE OPERATOR Inhaled Oxygen Concentration - - Weight 141.2 kg (311 lb 4.6 oz) 07/16/2021 3:13 PM PYRIDINE OPERATOR Height 157.5 cm (5' 2) 07/16/2021 3:13 PM PYRIDINE OPERATOR Body Mass Index 56.94 07/16/2021 3:13 PM PYRIDINE OPERATOR Plan of Treatment Not on file Insurance [facility] Care Teams Maternal Fetal Physician Relationship Specialty Start Date End Date Sunshine Blancas NP [address] [place] [id number] PCP - General Nurse Practitioner 07/16/21
--- OUTSIDE RECORDS SUMMARY | 2025-02-18 04:28 | XMS_ITS | Encounter Summary ---
Author Organization [facility] Address [address] [place] [address] Care Team Providers Care Industrial Tech Instructor Name Role Phone Sunshine Blancas Primary Care Provider [phone] Encounter Details Date Type Department Care Team (Latest Contact Info) Description 02/12/2025 Scan HEALTH INFO SRVCS Scanned, Doc Med Group Social History Tobacco Use Types Packs/Day Years Used Date Smoking Tobacco: Never Smokeless Tobacco: Never Alcohol Use Standard Drinks/Week Comments No 0 [...] on file Sexual Orientation Not on file documented as of this encounter Plan of Treatment Not on file documented as of this encounter Visit Diagnoses Not on filedocumented in this encounter Additional Health Concerns Assessment Noted Time PHQ-9 Depression Total Score: 14 024 10:03 AM SALES AND SERVICE ENGINEER documented as of this encounter Care Teams Industrial Tech Instructor Relationship Specialty Start Date End Date Sunshine Blancas FNP [address] [place] [address] PCP - General 12/22/16 documented as of this encounter
--- OUTSIDE RECORDS SUMMARY | 2025-02-18 04:28 | XMS_ITS | Continuity of Care Document ---
Author Organization [facility] Address [address] [place] [address] [place] [address] Phone Care Team Providers Care Vamp Maker Name Role Phone Wilson Arriaza MD Unavailable [...] route every day 60 MG - Active [place] 5 mg-325 mg tablet take 1 tablet [...] Copied on Encounter OFFICE/OUTPA TIENT VISIT, EST [facility], [address], [place], [place], [address], [place] tel:[phone] [facility] Medicine HTN (chief complaint) hematuria1 (chief complaint) shoulder pain1 (chief complaint) Adhesive capsulitis of right shoulderHematuriaEs sential (primary) hypertension May- 6 Arsalan Rachel. [address], [place], [place], [address] , [place]. tel:[phone] Referring Provider: [address] Cel[address], [place], [place], [address]. tel:[phone] OFFICE/OUTPA TIENT VISIT, [facility], [place], operated [facility], [address], [place], [place], [address], [place] tel:[phone] [facility] HLP (chief complaint) hematuria1 (chief complaint) low D (chief complaint) HTN1 (chief complaint) sinus (chief complaint) HematuriaMixed hyperlipidemiaMetab olic syndromeEssential (primary) hypertension Lalit- 6 Arsalan Rachel. [address], [place], [place], [address] , [place]. tel:[phone] Referring Provider: Susi Cel[address], [place], [place], [address]. tel:[phone] PREV VISIT, EST, AGE 40-64 [facility], [address], [place], [place], [address], [place] tel:[phone] [facility] Medicine PHysical (chief complaint) Encounter for general adult medical exam w abnormal findingsEssential (primary) hypertensionBody mass index (BMI) 45.0-49.9, adultHyperlipidemia , unspecified 6 Arsalan Stafford [address], [place], [place], [address] , [place]. tel:[phone] Referring Provider: Sus[address], [place], [place], [address]. tel:[phone] OFFICE/OUTPA TIENT VISIT, [facility], [place], operated [facility], [address], [place], [place], [address], [place] tel:[phone] [facility] Medicine sinus (chief complaint) HLP (chief complaint) HTN (chief complaint) Acute sinusitisMixed hyperlipidemiaEssen tial (primary) hypertension Nov-0 6 Arsalan Stafford [address], [place], [place], [address] , [place]. tel:[phone] Referring Provider: Susi Cel[address], [place], [place], [address]. tel:[phone] OFFICE/OUTPA TIENT VISIT, [facility], [place], [facility], [address], [place], [place], [address], [place] tel:[phone] [facility] HTN1 (chief complaint) HLP (chief complaint) joint pain (chief complaint) Essential (primary) hypertensionMixed hyperlipidemiaBody mass index (BMI) 50-59.9 , adultChronic pain syndrome 6 Arsalan Stafford [address], [place], [place], [address] , [place]. [phone] Referring Provider: Susi [address], [place], [place], [address]. tel:[phone] OFFICE/OUTPA TIENT VISIT, [facility], [place], operated [facility], [address], [place], [place], [address], [place] tel:[phone] [facility] Medicine HTN (chief complaint) ankle pain (chief complaint) HLP (chief complaint) Dietary surveillance and counselingUnspecifi ed essential hypertensionHyperli pidaemiaAnkle pain Sep-2 2201 5 Arsalan Stafford [address], [place], [place], [address] , [place]. tel:[phone] Referring Provider: Susi Celeste [address], [place], [place], [address]. tel:[phone] OFFICE/OUTPA TIENT VISIT, [facility], [place], [facility], [address], [place], [place], [address], [place] tel:[phone] [facility] HTN (chief complaint) ankle pain (chief complaint) Dietary surveillance and counselingBP - High blood pressureBMI 50.0 to 59.9Ankle pain 5 Arsalan Rachel. [address], [place], [place], [address] , [place]. [phone] Referring Provider: Susi [address], [place], [place], [address]. tel:[phone] PREV VISIT, EST, AGE 40-64 [facility], [address], [place], [place], [address], [place] tel:[phone] [facility] Physical (chief complaint) Dietary surveillance and counselingRoutine Medical ExamRoutine Medical Exam 5 Arsal[address], [place], [place], [address] , [place]. [phone] Referring Provider: Susi Celeste [address], [place], [place], [address]. tel:[phone] OFFICE/OUTPA TIENT VISIT, EST [facility], [address], [place], [place], [address], [place] tel:[phone] [facility] breast lesion (chief complaint) Hematuria (chief complaint) Dietary surveillance and counselingLump or mass in breastHEMATURIA NOSPolyp of corpus uteri 3 Arsal[address], [place], [place], [address] , [place]. [phone] Referring Provider: Susi Celeste [address], [place], [place], [address]. tel:[phone] OFFICE/OUTPA TIENT VISIT, EST [facility], [address], [place], [place], [address], [place] tel:[phone] [facility] HLP (chief complaint) Vitamin D (chief complaint) breast density (chief complaint) abdominal pain (chief complaint) hematuria (chief complaint) Other and unspecified hyperlipidemiaUnspe cified abnormal mammogramAbdominal PainHEMATURIA NOSDietary surveillance and counseling 3 Arsalan Rachel. [address], [place], [place], [address] , [place]. tel:[phone] Referring Provider: Wilson Arriaza, [address], [place], [place], [address]. tel:[phone] PREV VISIT, EST, AGE 40-64 [facility], [address], [place], [place], [address], [place] tel:[phone] [facility] Physical (chief complaint) Dietary surveillance and counselingRoutine Medical ExamRoutine Medical Exam 3 Arsalan Rachel. [address], [place], [place], [address] , [place]. tel:[phone] Family History Family Member Type Diagnosis Age [...] polyp. Pt had appointment with urology at [facility] and then she canceled it. Pt [...] ordered Referral Referred To: Christian Powell [address] [place], [phone] Ordered: Referrals: Christian Powell. Evaluate and treat ordered Referral Ordered: DXA BONE DENSITY, AXIAL ordered Referral Ordered: Moises Hoang (related to Ankle pain) ordered Referral Ordered: KNEE XRAY TWO-VIEW Left ordered Referral Referred To: Moises Hoang [address] [place], [phone] Ordered: Referrals: Moises Hoang. Evaluate and treat [...] polyp. Pt had appointment with urology at [facility] and then she canceled it. Pt [...] see her since she had surgery at [facility]. Pt called nadya and they will [...] Mental Status Date Cognitive Assessment Orientation - Trent ed to time, place, person, situation.
--- OUTSIDE RECORDS SUMMARY | 2025-02-18 04:28 | XMS_ITS | Clinical Summary ---
Author Organization [facility] Address [address] [place] [address] Care Team Providers Care Boiler Reliner Name Role Phone Sunshine Blancas NP Primary Care Provider [phone] Allergies No known active allergies Medications cyclobenzaprine [...] on file Legal Sex Female 6:58 PM BILLING AND ACCOUNTING STAFF ASSISTANT Gender Identity Not on file Sexual Orientation Not on file Last Filed Vital Signs Vital Sign Reading Time Taken Comments Blood Pressure 165/109 07/16/2021 4:31 PM BILLING AND ACCOUNTING STAFF ASSISTANT Pulse 86 07/16/2021 4:31 PM BILLING AND ACCOUNTING STAFF ASSISTANT Temperature 36.7 C (98 F) 07/16/2021 3:13 PM BILLING AND ACCOUNTING STAFF ASSISTANT Respiratory Rate 20 07/16/2021 4:31 PM BILLING AND ACCOUNTING STAFF ASSISTANT Oxygen Saturation 97% 07/16/2021 4:31 PM BILLING AND ACCOUNTING STAFF ASSISTANT Inhaled Oxygen Concentration - - Weight 141.2 kg (311 lb 4.6 oz) 07/16/2021 3:13 PM BILLING AND ACCOUNTING STAFF ASSISTANT Height 157.5 cm (5' 2) 07/16/2021 3:13 PM BILLING AND ACCOUNTING STAFF ASSISTANT Body Mass Index 56.94 07/16/2021 3:13 PM BILLING AND ACCOUNTING STAFF ASSISTANT Plan of Treatment Not on file Insurance [facility] Care Teams Boiler Reliner Relationship Specialty Start Date End Date Sunshine Blancas NP [address] [place] [address] PCP - General Nurse Practitioner 07/16/21
--- NOTE | 2025-02-18 04:49 | ED.SOB ---
HPI - SOB/Dyspnea General Chief Complaint: Shortness of Breath/Dyspnea Stated Complaint: trouble breathing Time Seen by Provider: 02/18/25 04:30 History of Present Illness HPI Narrative: Patient with history of COPD who was just admitted here a few days ago and discharged 2 days ago presents here with increasing shortness of breath, she states when she had been discharged she was feeling fine but she is now having shortness of breath again. Related Data Allergies Allergy/AdvReac Type Severity Reaction Status Date / Time No Known Allergies Allergy Verified 02/12/25 18:06 Review of Systems Review of Systems: All systems reviewed & are unremarkable except as noted in HPI and below PMFSH Past Medical History Medical History (Updated 02/18/25 @ 06:11 by Jael Escobar MD) History of blood clots Post-menopausal History of blood transfusion Fractures C. difficile colitis Arthritis Bronchitis Asthma HTN (hypertension) Surgical History Surgical History History of orthopedic surgery L intermedullary nail History of ankle surgery right side Hx of appendectomy Hx of tonsillectomy Social History Social History Smoking status: Never smoker Second hand tobacco smoke exposure: No Alcohol intake: never Substance use: never Substance use type: does not use Do You Feel Safe in your Home?: Yes Lack of Transportation: No Lack of Food: Never True Current Housing: I Have Housing Concerned About Future Housing: No Difficulty Paying Gas/Electric Bills: No Difficulty Paying for Meds: No Currently Unemployed: No Education: High School Diploma/GED Difficulty w/ Childcare or Family Care: No Living arrangements: with family Gender identity (if verbalized by the patient): Female Spiritual care concerns: No Exam Narrative: EXAMINATION OF ORGAN SYSTEMS/BODY AREAS: Constitutional: Vital signs per nursing GENERAL: Slightly tachypneic but does not appear toxic HEAD: Normal with no signs of head trauma. EYES: EOMI, conjunctiva normal ENT: Hearing grossly intact LUNGS: Diffuse wheezing all lung awad, slightly tachypneic HEART: [Regular rate and rhythm] ABD: [Soft], [nontender to palpation] EXT: Normal range of motion SKIN: [No rashes or lesions.] NEURO: [Alert and oriented x 3. No gross focal sensory or strength deficits.] PSYCH: Normal affect Course Vital Signs Vital signs: Vital Signs Temperature 98.1 F 02/18/25 04:34 Pulse Rate 89 02/18/25 04:34 Respiratory Rate 24 H 02/18/25 04:34 Blood Pressure 202/96 H 02/18/25 04:34 Pulse Oximetry 98 02/18/25 04:34 Oxygen Delivery Room Air 02/18/25 04:34 Temperature 98.1 F 02/18/25 04:34 Pulse Rate 88 02/18/25 06:01 Respiratory Rate 18 02/18/25 06:01 Blood Pressure 145/67 H 02/18/25 05:39 Pulse Oximetry 97 02/18/25 04:55 Oxygen Delivery Room Air 02/18/25 04:55 MDM - SOB/Dyspnea MDM Narrative Medical decision making narrative: 1) Differential diagnosis: COPD, pneumonia, ACS, very unlikely PE with negative CT PE yesterday 2) Comorbidities: Obesity, reactive airway disease 3) External notes reviewed: Recent admission records 4) History sources independently obtained from: 5) Discussion of management with: 6) Independent interpretation of: EKG to my independent interpretation showing sinus rhythm rate 75, MA 182, QRS 97, QTC 399 Chest x-ray on my independent interpretation does not show any obvious consolidations or pneumothorax 7) Diagnostic tests or therapies considered but not ordered: 8) Social determinants of health: 9) Shared decision making: Patient presenting here with increasing shortness of breath, was just discharged recently for the same. History of COPD/asthma and had been admitted for this and just discharged a day or 2 ago. While admitted had workup including CT PE that was negative, she is tachypneic here extensive wheezing all lung awad, breathing treatments started, and on re-evaluation, she was in some respiratory distress, she had pulled off the breathing treatment because she stated that she could not breathe. This is while she was lying flat and she is quite obese so I did sit her up, suggested trying BiPAP, which she is agreeable to trying. At this point I do feel she needs to be admitted. On re-evaluation, patient is now sitting up and no longer respiratory distress, she is declining BiPAP for now and I feel this is reasonable given her now normal vital signs and improved respiratory effort. Discussed with hospitalist for admission. Lab Data 02/18/25 04:53 02/18/25 04:52 Labs: Lab Results 02/18/25 02/18/25 Range/Units 04:52 04:53 WBC 11.3 H (4.5-10.0) K/mm3 RBC 4.58 (4.2-5.4) M/mm3 Hgb 12.3 (12.0-15.0) g/dL Hct 38.9 (37.0-47.0) % MCV 84.9 (80-100) fl MCH 26.9 (26-34) pg MCHC 31.6 L (32-36) g/dl RDW 14.6 H (11.5-14.5) % Plt Count 267 (150-375) k/mm3 MPV 10.4 (7.4-10.4) fl Immature Gran % (Auto) 1.0 H (0-0.5) % Neut % (Auto) 56.3 (45.5-73.1) % Lymph % (Auto) 28.8 (18.3-44.2) % [place] % (Auto) 13.6 H (2.6-8.5) % Eos % (Auto) 0.1 (0-4.4) % Baso % (Auto) 0.2 (0.2-1.2) % Lymph # (Auto) 3.26 H (0.9-3.2) K/mm3 [place] # (Auto) 1.5 H (0.1-0.6) K/mm3 Eos # (Auto) 0.0 (0-0.3) K/mm3 Baso # (Auto) 0.0 (0.0-0.1) K/mm3 Abs Immat Gran (auto) 0.11 H (0.00-0.031) K/mm3 Absolute Neuts (auto) 6.4 (1.3-6.7) K/mm3 Absolute Nucleated RBC 0.000 (0.0-0.012) K/mm3 Nucleated RBC % 0.0 (0.0-0.2) % Sodium 138 (137-145) mmol/L Potassium 3.7 (3.4-5.0) mmol/L Chloride 105 (98-107) mmol/L Carbon Dioxide 24 (22-30) mmol/L Anion Gap 9 (4-12) mmol/L BUN 36 H D (7-17) mg/dL Creatinine 0.93 (0.7-1.0) mg/dL Estim Creat Clear Calc 70 ml/min Estimated GFR > 60 (59 - ) Glucose 105 (65-110) mg/dL Calcium 8.8 (8.4-10.2) mg/dL Total Bilirubin 0.3 (0.2-1.3) mg/dL AST 50 H (14-36) U/L ALT 28 (6-35) U/L Alkaline Phosphatase 68 (38-126) U/L Total Protein 6.8 (6.3-8.2) g/dL Albumin 3.8 (3.5-5.1) g/dL Influenza A (RT-PCR) Negative (Negative) Influenza B (RT-PCR) Negative (Negative) RSV (RT-PCR) Negative (Negative) SARS-CoV-2 RNA (RT-PCR) Negative (Negative) Critical Care Time Critical Care Time Critical Care Time: Yes Total Critical Care Time: 31 Discharge Plan Discharge Clinical Impression: Acute bronchitis with asthma Patient Disposition: Still a Patient Condition: Stable Patient Language: Citizen Of [place] Prescriptions: No Action (DME) Aerochamber Plus Z Stat Spacer See Rx Instructions .Route Qty: 1 0RF Rx Instructions: As directed guaifenesin [Mucinex] 600 mg tablet extended release 12hr 600 mg PO BID 10 Days Qty: 20 0RF (DME) Mike Aerosol Dane Enhancer Spacer See Rx Instructions .Route Qty: 1 0RF Rx Instructions: As directed ibuprofen 600 mg tablet 600 mg PO TID PRN (Reason: pain) Qty: 30 0RF (DME) nebulizer and compressor Device See Rx Instructions .Route Qty: 1 0RF Rx Instructions: As directed (DME) nebulizer accessories Kit See Rx Instructions .Route Qty: 1 11RF Rx Instructions: As directed sod bicarb-sod chlor-neti pot Packet With Rinse Device 1 ea .Route BID PRN (Reason: severe congestion) Qty: 50 11RF Rx Instructions: PRN Excedrin Migraine 250-250-65 mg tablet 2 tablet PO Q4-6H PRN (Reason: pain) Qty: 30 0RF Rx Instructions: for 5 days only amoxicillin-pot clavulanate 875-125 mg tablet 1 tablet PO Q12H Qty: 8 0RF ipratropium-albuterol 0.5 mg-3 mg(2.5 mg base)/3 mL solution for nebulization 3 ml inhalation Q6H PRN (Reason: shortness of breath or wheezing) Qty: 90 11RF benzonatate 200 mg capsule 200 mg PO TID PRN (Reason: cough) Qty: 30 0RF azelastine-fluticasone [Dymista] 137-50 mcg/spray spray,non-aerosol 1 spray intranasal BID Qty: 23 0RF Rx Instructions: administer into each nostril cyclobenzaprine 5 mg tablet 5 mg PO TID PRN (Reason: muscle spasm) Qty: 10 0RF albuterol sulfate 90 mcg/actuation HFA aerosol inhaler 2 puff inhalation Q4-6H PRN (Reason: shortness of breath or wheezing) Qty: 8.5 0RF fluticasone propion-salmeterol [Advair HFA] 230-21 mcg/actuation Hfa Aerosol Inhaler 2 puff inhalation Q12HRT 60 Days Qty: 2 3RF prednisone 20 mg Tablet 40 mg PO DAILY@0800 5 Days Qty: 10 0RF lidocaine [Lidoderm] 5 % Adhesive Patch,Medicated 1 patch transdermal DAILY PRN (Reason: pain) 30 Days Qty: 30 0RF Follow-up/Referrals: CLAIRE,KIMBERLY PETERSEN [Primary Care Provider] -
[2025-02-18] MEDS: ALBUTEROL SULFATE NEB 2.5 MG/3 ML INH 15 MG INHALATION (04:56)
[2025-02-18] MEDS: IPRATROPIUM BR 0.02% INH SOLN 0.5 MG/2.5 ML VIAL 1 MG INHALATION (04:56)
[2025-02-18 05:03] LABS: Basophils Percent Auto 0.2 % (0.2-1.2); Eosinophils Percent Auto 0.1 % (0-4.4); Hematocrit 38.9 % (37.0-47.0); Hemoglobin 12.3 g/dL (12.0-15.0); Immature Granulocyte Absolute 0.11 K/mm3 (0.00-0.031); Lymphocytes Absolute Auto 3.26 K/mm3 (0.9-3.2); Lymphocytes Percent Auto 28.8 % (18.3-44.2); Mean Corpuscular HGB Conc 31.6 g/dl (32-36); Mean Corpuscular Hemoglobin 26.9 pg (26-34); Mean Corpuscular Volume 84.9 fl (80-100); Mean Platelet Volume 10.4 fl (7.4-10.4); Monocytes Absolute Auto 1.5 K/mm3 (0.1-0.6); Monocytes Percent Auto 13.6 % (2.6-8.5); Neutrophils Absolute Auto 6.4 K/mm3 (1.3-6.7); Neutrophils Percent Auto 56.3 % (45.5-73.1); Platelet Count Result 267 k/mm3 (150-375); Red Blood Count 4.58 M/mm3 (4.2-5.4); Red Cell Distribution Width 14.6 % (11.5-14.5); White Blood Count 11.3 K/mm3 (4.5-10.0)
[2025-02-18] MEDS: MAGNESIUM SULF 2 GM/WATER 50ML 2 GM/50 ML BAG IVPB (05:04)
[2025-02-18] MEDS: methylPREDNISolone SOD SUCC 40 MG VIAL IV PUSH (05:04)
[2025-02-18 05:09] LABS: Alanine Aminotransferase 28 U/L (6-35); Albumin Level 3.8 g/dL (3.5-5.1); Alkaline Phosphatase 68 U/L (38-126); Anion Gap 9 mmol/L (4-12); Aspartate Amino Transferase 50 U/L (14-36); Bilirubin,Total 0.3 mg/dL (0.2-1.3); Blood Urea Nitrogen 36 mg/dL (7-17); Calcium 8.8 mg/dL (8.4-10.2); Carbon Dioxide 24 mmol/L (22-30); Chloride 105 mmol/L (98-107); Estimated CRCL calculation 70 ml/min; Estimated Glomerular Filt Rate > 60; Glucose 105 mg/dL (65-110); Potassium 3.7 mmol/L (3.4-5.0); Sodium 138 mmol/L (137-145); Total Protein 6.8 g/dL (6.3-8.2)
--- OUTSIDE RECORDS SUMMARY | 2025-02-18 05:21 | XMS_ITS | Clinical Summary ---
Author Organization [facility] Address [address] [place] [address] Care Team Providers Care Vice President For Instruction Name Role Phone Sunshine Blancas NP Primary Care Provider [phone] Allergies No known active allergies Medications cyclobenzaprine [...] on file Legal Sex Female 6:58 PM SHIFTMAN Gender Identity Not on file Sexual Orientation Not on file Last Filed Vital Signs Vital Sign Reading Time Taken Comments Blood Pressure 165/109 07/16/2021 4:31 PM SHIFTMAN Pulse 86 07/16/2021 4:31 PM SHIFTMAN Temperature 36.7 C (98 F) 07/16/2021 3:13 PM SHIFTMAN Respiratory Rate 20 07/16/2021 4:31 PM SHIFTMAN Oxygen Saturation 97% 07/16/2021 4:31 PM SHIFTMAN Inhaled Oxygen Concentration - - Weight 141.2 kg (311 lb 4.6 oz) 07/16/2021 3:13 PM SHIFTMAN Height 157.5 cm (5' 2) 07/16/2021 3:13 PM SHIFTMAN Body Mass Index 56.94 07/16/2021 3:13 PM SHIFTMAN Plan of Treatment Not on file Insurance [facility] Care Teams Vice President For Instruction Relationship Specialty Start Date End Date Sunshine Blancas NP [address] [place] [address] PCP - General Nurse Practitioner 07/16/21
--- OUTSIDE RECORDS SUMMARY | 2025-02-18 05:21 | XMS_ITS | Encounter Summary ---
Author Organization [facility] Address [address] [place] [address] Care Team Providers Care Computer Mechanic Name Role Phone Sunshine Blancas Primary Care Provider [phone] Encounter Details Date Type Department Care Team [...] Depression Total Score: 14 024 10:03 AM DATE PULLER documented as of this encounter Care Teams Computer Mechanic Relationship Specialty Start Date End Date Sunshine Blancas FNP [address] [place] [address] PCP - General 12/22/16 documented as of this encounter
--- OUTSIDE RECORDS SUMMARY | 2025-02-18 05:21 | XMS_ITS | Referral Summary ---
Author Organization [facility] Address [address] [place] [address] Care Team Providers Care Beam Worker Name Role Phone Sunshine Blancas NP Primary Care Provider [phone] Allergies No known active allergies Medications cyclobenzaprine [...] on file Legal Sex Female 6:58 PM TELEMARKETING SALES REPRESENTATIVE Gender Identity Not on file Sexual Orientation Not on file Last Filed Vital Signs Vital Sign Reading Time Taken Comments Blood Pressure 165/109 07/16/2021 4:31 PM TELEMARKETING SALES REPRESENTATIVE Pulse 86 07/16/2021 4:31 PM TELEMARKETING SALES REPRESENTATIVE Temperature 36.7 C (98 F) 07/16/2021 3:13 PM TELEMARKETING SALES REPRESENTATIVE Respiratory Rate 20 07/16/2021 4:31 PM TELEMARKETING SALES REPRESENTATIVE Oxygen Saturation 97% 07/16/2021 4:31 PM TELEMARKETING SALES REPRESENTATIVE Inhaled Oxygen Concentration - - Weight 141.2 kg (311 lb 4.6 oz) 07/16/2021 3:13 PM TELEMARKETING SALES REPRESENTATIVE Height 157.5 cm (5' 2) 07/16/2021 3:13 PM TELEMARKETING SALES REPRESENTATIVE Body Mass Index 56.94 07/16/2021 3:13 PM TELEMARKETING SALES REPRESENTATIVE Plan of Treatment Not on file Insurance [facility] Care Teams Beam Worker Relationship Specialty Start Date End Date Sunshine Blancas NP [address] [place] [address] PCP - General Nurse Practitioner 07/16/21
--- OUTSIDE RECORDS SUMMARY | 2025-02-18 05:21 | XMS_ITS | Clinical Summary ---
Author Organization [facility] Address [address] [place] [address] Care Team Providers Care Medical Affairs Specialist Name Role Phone Sunshine Blancas CIVIL STRUCTURAL ENGINEER Primary Care Provider [phone] Allergies No known active allergies Medications multi vitamin/minera ls (THERA-M ENHANCED) tablet Take 1 tablet by mouth daily. Active Spacer/Aero-Ho lding Chambers ([facility]) Device see administration instructions. 4 Active [...] acute cor pulmonale, unspecified pulmonary embolism type ([facility]/HCC [facility]) 11/10/2018 08/17/2024 Cough 11/10/2018 07/23/2021 [...] Comments Blood Pressure 134/80 08/17/2024 10:52 AM ACCOUNTING TECHNICIAN Pulse 90 08/17/2024 10:52 AM ACCOUNTING TECHNICIAN Temperature 36.3 C (97.4 F) 08/17/2024 10:52 AM ACCOUNTING TECHNICIAN Respiratory Rate 24 08/17/2024 10:5 2 AM ACCOUNTING TECHNICIAN Oxygen Saturation 96% 08/17/2024 10: 52 AM ACCOUNTING TECHNICIAN Inhaled Oxygen Concentration - - Weight 139.6 kg (307 lb 12.8 oz) 2023 10:52 AM ACCOUNTING TECHNICIAN Height 157.5 cm (5' 2) 08/17/2024 10:5 2 AM ACCOUNTING TECHNICIAN Body Mass Index 56.3 08/17/2024 10:52 AM ACCOUNTING TECHNICIAN Plan of Treatment Health Maintenance Due Date Last Done Comments Colorectal Cancer Screening Colonoscopy (10 Years) 1959 Mammogram Screening 1999 Pneumococcal Vaccine: 50+ Years (1 of 1 - PCV) 2009 Zoster Vaccines (1 of 2) 2009 RSV Immunization or 60+ Years (1 - Risk 60-74 years 1-dose series) 2019 PHQ-2 (Physician Hamilton) 09/05/2024 09/29/2023 Dexa Scan (General) 2024 DTaP, [...] HEPATITIS C ANTIBODY Routine 09/29/2023 10:29 AM ACCOUNTING TECHNICIAN Encounter for hepatitis C screening test for low risk patient from Last 3 Months or Most Recently Relevant to Health Maintenance Results * CT GENERIC (12/02/2024) Anatomical Region Laterality Modality Other 12/02/2024 [facility] Scanned SCANNING Final Resu lt * OUTSIDE LAB (SCAN ORDER) (12/02/2024) Only the most recent of3 resultswithin the time period is included. 12/02/2024 [facility] Scanned SCANNING Final Resu lt * IMAGE GENERIC (12/02/2024) Anatomical Region Laterality Modality Other 12/02/2024 Result [facility] [facility] Scanned SCANNING Final Resu lt * HEPATITIS C ANTIBODY ([facility] ONLY) (09/29/2023 10:29 AM ACCOUNTING TECHNICIAN) HEPATITIS C AB NON-REACTI VE NON-REACT MICHALE 09/29/2023 7:15 PM ACCOUNTING TECHNICIAN [facility] Comment: ANTIBODIES TO HCV NOT DETECTED. DOES NOT EXCLUDE THE POSSIBILITY OF EXPOSURE TO HCV. 09/29/2023 10:2 9 AM ACCOUNTING TECHNICIAN Sunshine Blancas CIVIL STRUCTURAL ENGINEER LABORATORY Final Result [facility] [address] [place] [address], [id number] from Last 3 Months or Most Recently Relevant to Health Maintenance Insurance [employer] Care Teams Medical Affairs Specialist Relationship Specialty Start Date End Date Sunshine Blancas FNP [address] [place] [address] PCP - General 12/22/16
--- OUTSIDE RECORDS SUMMARY | 2025-02-18 05:21 | XMS_ITS | Continuity of Care Document ---
Author Organization [facility] Address [address] [place] [address] [place] [address] Phone Care Team Providers Care Commercial Food Instructor Name Role Phone Wilson Arriaza MD Unavailable [...] route every day 60 MG - Active Benedict 5 mg-325 mg tablet take 1 tablet [...] Copied on Encounter OFFICE/OUTPA TIENT VISIT, EST [facility], [address] [place], [place], [address], [place] tel:[phone] [facility] Medicine HTN (chief complaint) hematuria1 (chief complaint) shoulder pain1 (chief complaint) Adhesive capsulitis of right shoulderHematuriaEs sential (primary) hypertension May- 6 Arsalan Rachel. [address], [address], [place], [place], [address] , [place]. tel:[phone] Referring Provider: Susi Cel[address], [place], [place], [address]. tel:[phone] OFFICE/OUTPA TIENT VISIT, [facility], [address], [place], [place], [address], [place] tel:[phone] [facility] HLP (chief complaint) hematuria1 (chief complaint) low D (chief complaint) HTN1 (chief complaint) sinus (chief complaint) HematuriaMixed hyperlipidemiaMetab olic syndromeEssential (primary) hypertension Lalit- 6 Arsalan Rachel. [address], [address], [place], [place], [address] , [place]. tel:[phone] Referring Provider: Susi Cel[address], [place], [place], [address]. tel:[phone] PREV VISIT, EST, AGE 40-64 [facility], [address], [place], [place], [address], [place] tel:[phone] [facility] Medicine PHysical (chief complaint) Encounter for general adult medical exam w abnormal findingsEssential (primary) hypertensionBody mass index (BMI) 45.0-49.9, adultHyperlipidemia , unspecified 6 Arsalan Stafford [address], [address], [place], [place], [address] , [place]. tel:[phone] Referring Provider: Susi Cel[address], [place], [address]. tel:[phone] OFFICE/OUTPA TIENT VISIT, [facility], [address], [place], [place], [address], [place] tel:[phone] [facility] Medicine sinus (chief complaint) HLP (chief complaint) HTN (chief complaint) Acute sinusitisMixed hyperlipidemiaEssen tial (primary) hypertension Nov-0 6 Arsalan Stafford [address], [address], [place], [place], [address] , [place]. tel:[phone] Referring Provider: Susi Celeste [address], [place], [address]. tel:[phone] OFFICE/OUTPA TIENT VISIT, [facility], [address], [place], [address], [place] tel:[phone] [facility] HTN1 (chief complaint) HLP (chief complaint) joint pain (chief complaint) Essential (primary) hypertensionMixed hyperlipidemiaBody mass index (BMI) 50-59.9 , adultChronic pain syndrome 6 Arsalan Stafford [address], [address], [place], [place], [address] , [place]. [phone] Referring Provider: Susi Cel[address], [place], [place], [address]. tel:[phone] OFFICE/OUTPA TIENT VISIT, [facility], [address], [place], [address], [place] tel:[phone] [facility] Medicine HTN (chief complaint) ankle pain (chief complaint) HLP (chief complaint) Dietary surveillance and counselingUnspecifi ed essential hypertensionHyperli pidaemiaAnkle pain Sep-2 2201 5 Arsalan Stafford [address], [address], [place], [address] , [place]. tel:[phone] Referring Provider: Susi Celeste [address], [place], [place], [address]. tel:[phone] OFFICE/OUTPA TIENT VISIT, [facility], [address], [place], [address], [place] tel:[phone] [facility] HTN (chief complaint) ankle pain (chief complaint) Dietary surveillance and counselingBP - High blood pressureBMI 50.0 to 59.9Ankle pain 5 Arsalan Rachel. [address], [address], [place], [place], [address] , [place]. [phone] Referring Provider: Susi Cel[address], [place], [address]. tel:[phone] PREV VISIT, EST, AGE 40-64 [facility], [address], [place], [place], [address], [place] tel:[phone] [facility] Physical (chief complaint) Dietary surveillance and counselingRoutine Medical ExamRoutine Medical Exam 5 Arsalan [address], [place], [place], [address] , [place]. [phone] Referring Provider: Susi Celeste [address], [place], [place], [address]. tel:[phone] OFFICE/OUTPA TIENT VISIT, EST [facility], [address], [place], [place], [address], [place] tel:[phone] [facility] breast lesion (chief complaint) Hematuria (chief complaint) Dietary surveillance and counselingLump or mass in breastHEMATURIA NOSPolyp of corpus uteri 3 Arsalan [address], [place], [address] , [place]. [phone] Referring Provider: Susi Celeste [address], [place], [place], [address]. tel:[phone] OFFICE/OUTPA TIENT VISIT, EST [facility], [address], [place], [place], [address], [place] tel:[phone] [facility] HLP (chief complaint) Vitamin D (chief complaint) breast density (chief complaint) abdominal pain (chief complaint) hematuria (chief complaint) Other and unspecified hyperlipidemiaUnspe cified abnormal mammogramAbdominal PainHEMATURIA NOSDietary surveillance and counseling 3 Arsalan Rachel. [address], [address], [place], [place], [address] , [place]. tel:[phone] Referring Provider: Wilson Arriaza, [address], [place], [place], [address]. tel:[phone] PREV VISIT, EST, AGE 40-64 [facility], [address], [place], [place], [address], [place] tel:[phone] [facility] Physical (chief complaint) Dietary surveillance and counselingRoutine Medical ExamRoutine Medical Exam 3 Arsalan Rachel. [address], [address], [place], [place], [address] , [place]. tel:[phone] Family History Family Member Type Diagnosis Age [...] polyp. Pt had appointment with urology at [facility] and then she canceled it. [...] ordered Referral Referred To: Christian Powell [address] [place], [phone] Ordered: Referrals: Christian Powell. Evaluate and treat ordered Referral Ordered: DXA BONE DENSITY, AXIAL ordered Referral Ordered: Moises Hoang (related to Ankle pain) ordered Referral Ordered: KNEE XRAY TWO-VIEW Left ordered Referral Referred To: Moises Hoang [address] [place], [phone] Ordered: Referrals: Moises Hoang. Evaluate and treat [...] see her since she had surgery at [facility]. Pt called [facility] and they will not see [...] Mental Status Date Cognitive Assessment Orientation - Sondheimer ed to time, place, person, situation.
[2025-02-18 05:43] LABS: Influenza A QL RT-PCR Negative (Negative); Influenza B QL RT-PCR Negative (Negative); RSV RNA, RT-PCR Negative (Negative); SARS-CoV-2 RNA PCR Negative (Negative)
[2025-02-18 08:06] LABS: CRP < 0.5 mg/dL (<1.0)
[2025-02-18 08:10] LABS: NT Pro B Type Natriuretic Pept 186 pg/mL (19.9-100)
[2025-02-18 08:20] LABS: Procalcitonin 0.1 ng/mL
[2025-02-18] MEDS: IPRATROPIUM 0.5 MG/ALBUTEROL SULFATE 2.5 MG AMPUL.NEB 3 ML INHALATION ×3 (08:52→21:41)
--- NOTE | 2025-02-18 09:56 | ECHO_ITS ---
Patient Info Name: Lori Barnard Age: 64 years : 1960 Gender: Female Ht: 61 in Wt: 300 lbs BSA: 2.52 m2 HR: 93 bpm BP: 168 / 65 mmHg Technical Quality: Good Exam Date: 02/18/2025 1:29 PM Patient Status: O Admit Date: 02/18/2025 Exam Type: CA echo dop color flow w con Complete two-dimensional, color flow and Doppler transthoracic echocardiogram is performed with contrast to opacify the left ventricle and to improve the deliniation of the left ventricle endocardial borders. Staff Referring Physician: Jael Escobar Contact Lens Curve Grinder: Ana Maria Boles Attending Provider: Eldon Penaloza Contrast/Agitated Saline Contrast/Ag. Saline: Definity Amount: 2.00 ml Administered By: Ana Maria Boles Existing IV Access: Yes IV Access Condition: patent with no signs of infiltration Summary 1. Technically difficult study with limited views. 2. Left ventricular chamber dimension is normal. 3. Left ventricular systolic function is normal, estimated at 65-70. 4. There is mildly increased left ventricular wall thickness. 5. The left ventricular diastolic function is grade I diastolic dysfunction. 6. Right ventricular systolic function is normal. 7. There is mild mitral valve regurgitation. 8. There is mild tricuspid valve regurgitation. 9. Estimated pulmonary arterial systolic pressure is 41 mmHg. 10. There is small anterior pericardial effusion. Left Ventricle Left ventricular chamber dimension is normal. Left ventricular systolic function is normal, estimated at 65-70. There is mildly increased left ventricular wall thickness. The left ventricular diastolic function is grade I diastolic dysfunction. Right Ventricle Right ventricular chamber dimension is normal. Right ventricular systolic function is normal. Left Atria Left atrial chamber dimension is normal. Right Atria Right atrial chamber dimension is normal. Atrial Septum Intact interatrial septum visualized by color flow imaging. Aortic Valve The aortic valve is probable trileaflet. There is no aortic valve stenosis. There is no aortic valve regurgitation. Pulmonic Valve The pulmonic valve is not well visualized. There is no pulmonic regurgitation. Mitral Valve There is mild mitral valve regurgitation. Tricuspid Valve There is mild tricuspid valve regurgitation. Estimated pulmonary arterial systolic pressure is 41 mmHg. Pericardium/Pleural The pericardium appears epicardial fat pad. There is small anterior pericardial effusion. Inferior Vena Cava Dilated inferior vena cava with <50% collapse upon inspiration consistent with elevated right atrial pressure, 15 mmHg. Aorta The aortic root size at the sinus of Valsalva is normal. Left Ventricular Outflow Tract Name Value Normal LVOT 2D LVOT Diameter 1.8 cm LVOT Doppler LVOT Peak Velocity 167 cm/s LVOT Peak Gradient 11 mmHg LVOT Mean Gradient 6 mmHg LVOT VTI 33 cm LVOT VTI/AV VTI Ratio 1.0 LVOT Stroke Volume 80 ml LVOT CO 6.8 l/min LVOT CI 2.7 l/min/m2 Pulmonic Valve Name Value Normal PV Doppler PV Peak Velocity 167 cm/s PV Peak Gradient 11 mmHg Mitral Valve Name Value Normal MV Diastolic Function MV E Peak Velocity 87 cm/s MV A Peak Velocity 112 cm/s MV E/A 0.8 MV Decel Time (PW) 219 ms MV Annular TDI MV E/e' (Septal) 10.3 MV E/e' (Lateral) 5.9 MV E/e' (Average) 8.1 Tricuspid Valve Name Value Normal TV Regurgitation Doppler TR Peak Velocity 256 cm/s TR Peak Gradient 26 mmHg Estimated PAP/RSVP RA Pressure 15 mmHg <=5 PA Systolic Pressure 41 mmHg <36 RV Systolic Pressure 41 mmHg <36 TV Annular TDI TV Lateral Genesis s' Velocity 12.4 cm/s >=9.5 Aortic Valve Name Value Normal AV Doppler AV Peak Velocity 182 cm/s AV Peak Gradient 13 mmHg AV Mean Gradient 7 mmHg AV VTI 33 cm AV Area (Cont Eq VTI) 2.4 cm2 >=3.0 AV Area (Cont Eq Farhan) 2.2 cm2 AV DI (Farhan) 0.92 AV Regurgitation 2D LVOT Area 2.4 cm2 Ventricles Name Value Normal LV Dimensions 2D/MM IVS Diastolic Thickness (2D) 1.1 cm 0.6-1.0 LVID Diastole (2D) 4.5 cm 3.8-5.2 LVIW Diastolic Thickness (2D) 1.0 cm 0.6-0.9 LVID Systole (2D) 3.0 cm 2.2-3.5 LVOT Diameter 1.8 cm LV Mass (2D Cubed) 171.74 g 67.00-162.00 LV Mass Index (2D Cubed) 68 g/m2 43-95 Relative Wall Thickness (2D) 0.47 <=0.42 LV Fractional Shortening/Ejection Fraction 2D/MM LV Fractional Shortening (2D) 33 % 27-45 LV EF (2D Teichholz) 62 % LV Diastolic Volume (4C MOD) 157 ml LV EF (4C MOD) 63 % LV Diastolic Volume (2C MOD) 162 ml LV EF (2C MOD) 68 % LV Diastolic Volume (BP MOD) 160 ml 46-106 LV Diastolic Volume Index (BP MOD) 64 ml/m2 29-61 LV Systolic Volume (BP MOD) 55 ml 14-42 LV Systolic Volume Index (BP MOD) 22 ml/m2 8-24 LV EF (BP MOD) 65 % 54-74 LV Diastolic Length (4C) 9.6 cm LV Systolic Length (4C) 7.7 cm LV Stroke Volume (4C MOD) 99 ml Atria Name Value Normal LA Dimensions LA Volume (4C A-L) 71 ml LA Volume (BP A-L) 68 ml RA Dimensions RA Systolic Major [place] Length (4C) 4.8 cm 2.2-2.8 RA Area (4C) 15.9 cm2 <=18.0 Report Signatures
--- NOTE | 2025-02-18 10:10 | ADMGEN ---
This patient, Lori Barnard, was admitted to [facility] Surg Room 315-02. Patient/family oriented to hospital policies and general routines including ID bracelet, bed and alarms, visiting hours, pain management, procedures, bathroom and other care routines, personal items, smoking policy, room service/diet, and visiting hours. Information on how to activate the Rapid Response Team has been discussed. Patient/Family are encouraged to report perceived risks to care and to ask questions if they do not understand what they are told or what they should do. Report from Pat in the ER.
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
[2025-02-18] MEDS: LORATADINE 10 MG TABLET PO (10:46)
[2025-02-18] MEDS: FLUTICASONE PROPIONATE 0.05% NA SPR 16 GM BTL (*BKC) 2 SPRAY NASAL ×2 (10:46→20:26)
[2025-02-18] MEDS: guaiFENesin 12 HR 600 MG TABCR 1200 MG PO ×2 (10:46→20:26)
[2025-02-18] MEDS: AZITHROMYCIN 500 MG/NS 250 ML 500 MG/250 ML BAG 250 MG IVPB (10:47)
[2025-02-18] MEDS: methylPREDNISolone SOD SUCC 125 MG VIAL 40 MG IV PUSH ×3 (12:03→23:08)
[2025-02-18] MEDS: PERFLUTREN LIPID MICROSPHERES 1.5 ML VIAL DILUTED TO 10 ML TOTAL VOLUME IV PUSH (14:10)
--- NOTE | 2025-02-18 15:59 | IVDEFINITY ---
Prior to administration of IV Definity the patient was educated on the risks and benefits of the imaging enhancing agent including potential adverse side effects. The patient verbalized understanding. Allergies were verified. No exclusion criteria were identified and at least one of the following inclusion criteria were met: 1) physician request, 2) patient technically difficult to image (per the [place] [employer] guidelines of two or more segments not discernable within the apical view), or 3) questionable left ventricular function. ?
--- NOTE | 2025-02-18 18:55 | PM.IMHP ---
H&P: HPI History of Present Illness Date/Time: 02/18/25 18:55 Chief Complaint: SOB Narrative: 64-year-old female past medical history of asthma on hypertension presented to the shortness of breath and wheezing. She was discharged from the hospital yesterday after she was managed for asthma exacerbation, however she noted that it she can not have shortness of breath with wheezing which prompted her to present to the again for proper evaluation and care. Denies Any chest diarrhea dysuria focal symptoms. ER evaluation blood pressure 200/96, respiratory 24, labs today for WBC 11.3 RSV, COVID, flu negative. Chest x-ray unremarkable. Patient was started on steroid and bronchodilators.. Problem pulmonology consulted. Review of Systems Review of Systems: All other systems reviewed and negative except as noted in the history above. [facility] Past Medical History Medical History (Updated 02/18/25 @ 06:11 by Jael Escobar MD) History of blood clots Post-menopausal History of blood transfusion Fractures C. difficile colitis Arthritis Bronchitis Asthma HTN (hypertension) Surgical History Surgical History History of orthopedic surgery L intermedullary nail History of ankle surgery right side Hx of appendectomy Hx of tonsillectomy Family History Family History (Updated 02/18/25 @ 10:14 by Shelbi Alaniz RN) Other Diabetes mellitus Grandparent Bladder cancer Mother Bladder cancer Sibling Lymphoma Social History Social History Smoking status: Never smoker Second hand tobacco smoke exposure: No Alcohol intake: never Substance use: never Substance use type: does not use Do You Feel Safe in your Home?: Yes Lack of Transportation: No Lack of Food: Never True Current Housing: I Have Housing Concerned About Future Housing: No Difficulty Paying Gas/Electric Bills: No Difficulty Paying for Meds: No Currently Unemployed: No Education: Don't Know Difficulty w/ Childcare or Family Care: No Living arrangements: with family Gender identity (if verbalized by the patient): Female Spiritual care concerns: No Meds Home Medications and Allergies Home Medications ?Medication ?Instructions ?Recorded ?Confirmed ?Type guaifenesin 600 mg tablet, 600 mg PO BID 10 days #20 tabs 07/31/24 02/18/25 Rx extended release 12 hr (Mucinex) inhalational spacing device #1 ea 07/31/24 02/18/25 Rx (Aerochamber Plus Z Stat spacer) ibuprofen 600 mg tablet 600 mg PO TID PRN pain #30 tabs 12/02/24 02/18/25 Rx inhalational spacing device (Mike #1 ea 02/12/25 02/18/25 Rx Aerosol Hamblen Enhancer spacer) albuterol sulfate 90 mcg/actuation 2 puff inhalation Q4-6H PRN 02/17/25 02/18/25 Rx aerosol inhaler shortness of breath or wheezing #8.5 grams amoxicillin 875 mg-potassium 1 tablet PO Q12H #8 tabs 02/17/25 02/18/25 Rx clavulanate 125 mg tablet juybhzn-xbkdwjhhwnaxx-kfuxllpy 250 2 tablet PO Q4-6H PRN pain #30 tabs 02/17/25 02/18/25 Rx mg-250 mg-65 mg tablet (Excedrin Migraine) azelastine 137 mcg-fluticasone 50 1 spray intranasal BID #23 grams 02/17/25 02/18/25 Rx mcg/spray nasal spray (Dymista) benzonatate 200 mg capsule 200 mg PO TID PRN cough #30 caps 02/17/25 02/18/25 Rx cyclobenzaprine 5 mg tablet 5 mg PO TID PRN muscle spasm #10 02/17/25 02/18/25 Rx tabs fluticasone propionate 230 2 puff inhalation Q12HRT 60 days 02/17/25 02/18/25 Rx mcg-salmeterol 21 mcg/actuation #2 device HFA inhaler (Advair HFA) ipratropium 0.5 mg-albuterol 3 mg 3 ml inhalation Q6H PRN shortness 02/17/25 02/18/25 Rx (2.5 mg base)/3 mL nebulization of breath or wheezing #90 mL soln nebulizer accessories #1 ea 02/17/25 02/18/25 Rx nebulizer and compressor #1 ea 02/17/25 02/18/25 Rx prednisone 20 mg tablet 40 mg (2 x 20 mg) PO DAILY@0800 5 02/17/25 02/18/25 Rx days #10 tabs sodium bicarbonate-sodium 1 ea .Route BID PRN severe 02/17/25 02/18/25 Rx chloride-neti pot nasal rinse with congestion #50 ea packet lidocaine 5 % topical patch 1 patch transdermal DAILY PRN pain 02/18/25 02/18/25 History (Lidoderm) Allergies Allergy/AdvReac Type Severity Reaction Status Date / Time No Known Allergies Allergy Verified 02/18/25 10:24 Vital Signs Vital Signs - 24 hr 02/18/25 04:34 02/18/25 04:55 02/18/25 04:58 Temperature 98.1 F Pulse Rate 89 71 Respiratory Rate 24 H 15 Blood Pressure 202/96 H Pulse Oximetry 98 97 Oxygen Delivery Room Air Room Air Fraction of Inspired Oxygen 02/18/25 05:39 02/18/25 06:01 02/18/25 06:20 Temperature Pulse Rate 88 91 Respiratory Rate 18 18 Blood Pressure 145/67 H 147/81 H Pulse Oximetry 96 Oxygen Delivery Fraction of Inspired Oxygen 02/18/25 06:47 02/18/25 08:50 02/18/25 08:50 Temperature Pulse Rate 93 88 88 Respiratory Rate 20 20 20 Blood Pressure 168/65 H Pulse Oximetry 100 98 Oxygen Delivery Room Air Fraction of Inspired Oxygen 21 02/18/25 09:00 02/18/25 14:00 02/18/25 14:15 Temperature 97.2 F L Pulse Rate 89 86 76 Respiratory Rate 20 20 20 Blood Pressure 172/90 H Pulse Oximetry 96 Oxygen Delivery Fraction of Inspired Oxygen 02/18/25 14:25 Temperature Pulse Rate 78 Respiratory Rate 20 Blood Pressure Pulse Oximetry Oxygen Delivery Fraction of Inspired Oxygen Exam Narrative: General: alert and comfortable Eyes: EOMI, PERRLA ENNT External ears normal, Neck is supple, no masses, Respiratory systems: bilateral wheezing Cardiovascular S1, S2, normal rhythm, no murmur, rub, or gallop; no thrill or palpable murmurs on palpation. Gastrointestinal: soft, non-tender, and non-distended abdomen with no masses; BS present Skin: no rash, lesions, ulcerations, subcutaneous nodules or induration Musculoskeletal: no abnormality and no tenderness, normal ROM Neurologic: Alert and oriented x3, non focal Mental Status Exam: normal affect H&P: Results Labs Labs: Short CBC 02/18/25 Range/Units 04:53 WBC 11.3 H (4.5-10.0) K/mm3 Hgb 12.3 (12.0-15.0) g/dL Hct 38.9 (37.0-47.0) % Plt Count 267 (150-375) k/mm3 BMP 02/18/25 04:52 Sodium 138 Potassium 3.7 Chloride 105 Carbon Dioxide 24 BUN 36 H D Creatinine 0.93 Glucose 105 Calcium 8.8 Liver Function 02/18/25 Range/Units 04:52 Total Bilirubin 0.3 (0.2-1.3) mg/dL AST 50 H (14-36) U/L ALT 28 (6-35) U/L Alkaline Phosphatase 68 (38-126) U/L Albumin 3.8 (3.5-5.1) g/dL Assessment and Plan Assessment and plan (1) Reactive airway disease with acute exacerbation: Code(s): J45.901 - Unspecified asthma with (acute) exacerbation Status: Acute (2) HTN (hypertension): Code(s): I10 - Essential (primary) hypertension Status: Acute Plan Asthma exacerbation Presented with shortness of bread, wheezing noted on auscultation Continue IV steroid bronchodilators. Pulmonology on board Hypertension with elevated blood pressure BP 202/96 started on Lisinopril 5mg and HCTZ 12.5 mg daily Obesity patient counseled about lifestyle modification DVT prophylaxis on Sq Lovenox Full code [facility]: [facility] [place] Advance Care Plan I have confirmed that the patient's Advanced Care Plan is present, code status is documented, or surrogate decision maker is listed in patient medical record.: Yes Medication Reconciliation I have utilized all available resources to obtain, update and review the patients current medications (includes all prescriptions, OTC, herbals, cannabis, and nutritional supplements).: Yes
[2025-02-18] MEDS: hydroCHLOROthiazide 12.5 MG CAPSULE PO (20:26)
[2025-02-18] MEDS: FLUTICASONE/SALMETEROL 230-21 MCG INHALER 1 PUFF 2 PUFF INHALATION (21:46)
[2025-02-19] VITALS (15 sets, daily range): BP systolic 148–160; BP diastolic 66–81; PULSE 72–98; RESP 16–22; TEMP 36.3–36.8; O2SAT 91–97
--- NOTE | 2025-02-19 02:38 | PCRCNOTE ---
0000 and 0400 respiratory treatments held for apnea link procedure
[2025-02-19] MEDS: IPRATROPIUM 0.5 MG/ALBUTEROL SULFATE 2.5 MG AMPUL.NEB 3 ML INHALATION ×5 (04:51→20:23)
[2025-02-19 06:02] LABS: Basophils Percent Auto 0.2 % (0.2-1.2); Hematocrit 40.5 % (37.0-47.0); Hemoglobin 12.7 g/dL (12.0-15.0); Immature Granulocyte Absolute 0.19 K/mm3 (0.00-0.031); Immature Granulocyte Percent A 1.6 % (0-0.5); Immature Platelet Fraction Pct 6.9 % (0.9-11.2); Lymphocytes Absolute Auto 2.02 K/mm3 (0.9-3.2); Lymphocytes Percent Auto 17.4 % (18.3-44.2); Mean Corpuscular HGB Conc 31.4 g/dl (32-36); Mean Corpuscular Hemoglobin 26.9 pg (26-34); Mean Corpuscular Volume 85.8 fl (80-100); Mean Platelet Volume 11.2 fl (7.4-10.4); Monocytes Absolute Auto 0.8 K/mm3 (0.1-0.6); Neutrophils Absolute Auto 8.6 K/mm3 (1.3-6.7); Neutrophils Percent Auto 73.8 % (45.5-73.1); Platelet Count Result 222 k/mm3 (150-375); Red Blood Count 4.72 M/mm3 (4.2-5.4); Red Cell Distribution Width 14.7 % (11.5-14.5); White Blood Count 11.6 K/mm3 (4.5-10.0)
[2025-02-19] MEDS: methylPREDNISolone SOD SUCC 125 MG VIAL 40 MG IV PUSH (06:11)
[2025-02-19 06:25] LABS: Alanine Aminotransferase 31 U/L (6-35); Albumin Level 3.9 g/dL (3.5-5.1); Alkaline Phosphatase 68 U/L (38-126); Anion Gap 6 mmol/L (4-12); Aspartate Amino Transferase 45 U/L (14-36); Bilirubin,Total 0.4 mg/dL (0.2-1.3); Blood Urea Nitrogen 22 mg/dL (7-17); Calcium 9.2 mg/dL (8.4-10.2); Carbon Dioxide 27 mmol/L (22-30); Chloride 103 mmol/L (98-107); Estimated CRCL calculation 95 ml/min; Estimated Glomerular Filt Rate > 60; Glucose 153 mg/dL (65-110); Magnesium 2.3 mg/dL (1.6-2.3); Sodium 136 mmol/L (137-145); Total Protein 6.7 g/dL (6.3-8.2)
--- NOTE | 2025-02-19 06:48 | PCRCNOTE ---
[place] link: patients states she didn't get any sleep and has refused retesting for the night of 02/19
--- NOTE | 2025-02-19 06:59 | PM.IMPN ---
Progress Note: A&P Assessment and Plan (1) Reactive airway disease with acute exacerbation: Code(s): J45.901 - Unspecified asthma with (acute) exacerbation Status: Acute Assessment and Plan: - Presented with shortness of bread, wheezing noted on auscultation - Continue IV steroid - continue with bronchodilators. - Pulmonology consulted - will follow recommendations - trend labs/o2 saturation (2) HTN (hypertension): Code(s): I10 - Essential (primary) hypertension Status: Acute Assessment and Plan: BP 202/96 - started on Lisinopril 5mg and HCTZ 12.5 mg daily - tolerating well. Plan Obesity patient counseled about lifestyle modification DVT prophylaxis - Sq Lovenox Full code Discharge plan: discharge home once stable with pulmonology follow up. Time Spent With Patient Time with patient: Greater than 35 minutes Subjective Date/time seen: 02/19/25 06:59 Interval history: This is a pleasant 64 y/o female that is sitting up in bed this am. She reports she is still coughing, not back to her baseline. Reports some improvement bbut a long way to go. patient reports shortness of breath with ambulation, continued cough that is productive, and at times wheezing. she had just completed a breathing treatment and reports she feels like she can breath much better post treatments. Review of Systems Review of Systems: All other systems reviewed and negative except as noted in the history above. Exam Narrative: General: alert and comfortable Eyes: EOMI, PERRLA ENNT External ears normal, Neck is supple, no masses, Respiratory systems: bilateral wheezing Cardiovascular S1, S2, normal rhythm, no murmur, rub, or gallop; no thrill or palpable murmurs on palpation. Gastrointestinal: soft, non-tender, and non-distended abdomen with no masses; BS present Skin: no rash, lesions, ulcerations, subcutaneous nodules or induration Musculoskeletal: no abnormality and no tenderness, normal ROM Neurologic: Alert and oriented x3, non focal Mental Status Exam: normal affect Objective Data Vital Signs Vital Signs: Vital Signs - 24 hr 02/18/25 08:50 02/18/25 08:50 02/18/25 09:00 Temperature Pulse Rate 88 88 89 Respiratory Rate 20 20 20 Blood Pressure Pulse Oximetry 98 Oxygen Delivery Room Air Fraction of Inspired Oxygen 21 02/18/25 14:00 02/18/25 14:15 02/18/25 14:25 Temperature 97.2 F L Pulse Rate 86 76 78 Respiratory Rate 20 20 20 Blood Pressure 172/90 H Pulse Oximetry 96 Oxygen Delivery Fraction of Inspired Oxygen 02/18/25 20:00 02/18/25 21:02 02/18/25 21:41 Temperature 97.1 F L Pulse Rate 81 88 Respiratory Rate 14 18 Blood Pressure 177/82 H Pulse Oximetry 96 Oxygen Delivery Room Air Fraction of Inspired Oxygen 02/18/25 21:52 02/18/25 23:50 02/19/25 04:52 Temperature Pulse Rate 88 78 Respiratory Rate 18 22 H Blood Pressure Pulse Oximetry 96 Oxygen Delivery Room Air Fraction of Inspired Oxygen 21 02/19/25 05:00 02/19/25 06:00 Temperature 98.1 F Pulse Rate 78 79 Respiratory Rate 22 H 16 Blood Pressure 148/66 H Pulse Oximetry 97 Oxygen Delivery Fraction of Inspired Oxygen Intake/Output Intake/Output: Intake & Output 02/16/25 02/17/25 02/18/25 02/19/25 23:59 23:59 23:59 23:59 Intake Total 2029 400 Balance 2029 400 Meds/Results Medications: Active Medications Generic Name Dose Route Start Last Admin Trade Name Freq PRN Reason Stop Dose Admin Albuterol/Ipratropium 3 ml 02/18/25 12:00 02/19/25 04:51 Ipratropium 0.5 Mg/Albuterol Sulfate 2.5 Mg Ampul.Neb 3 Ml INHALATION 3 ml Q4HRT REBECA Administration Enoxaparin Sodium 40 mg 02/19/25 09:00 Enoxaparin 40 Mg/0.4 Ml Syringe SUB-Q DAILY REBECA Fluticasone Propionate 2 spray 02/18/25 10:00 02/18/25 20:26 Fluticasone Propionate 0.05% Na Spr 16 Gm Btl (*Bkc) NASAL 2 spray Q12HR REBECA Administration Guaifenesin 1,200 mg 02/18/25 09:55 02/18/25 20:26 Guaifenesin 12 Hr 600 Mg Tabcr PO 1,200 mg Q12HR REBECA Administration Hydrochlorothiazide 12.5 mg 02/18/25 19:05 02/18/25 20:26 Hydrochlorothiazide 12.5 Mg Capsule PO 12.5 mg QAM REBECA Administration Azithromycin 500 mg in 250 mls @ 250 mls/hr 02/18/25 10:00 02/18/25 11:47 Zithromax IVPB Infused Q24H REBECA Infusion Lisinopril 5 mg 02/19/25 09:00 Lisinopril 5 Mg Tablet PO QAM REBECA Loratadine 10 mg 02/18/25 10:00 02/18/25 10:46 Loratadine 10 Mg Tablet PO 10 mg QAM REBECA Administration Methylprednisolone Sodium Succinate 40 mg 02/18/25 12:00 02/19/25 06:11 Methylprednisolone Sod Succ 125 Mg Vial IV PUSH 40 mg Q6HR REBECA Administration Fluticasone/Salmeterol 2 puff 02/18/25 20:00 02/18/25 21:46 Fluticasone/Salmeterol 230-21 Mcg Inhaler 1 Puff INHALATION 2 puff Q12HRT REBECA Administration Radiology Results: ITS Impressions Chest X-Ray 02/18/25 05:49 Impression: Clear lungs. Labs Labs: Laboratory Results - last 24 hr 02/18/25 02/19/25 04:52 05:47 WBC 11.6 H RBC 4.72 Hgb 12.7 Hct 40.5 MCV 85.8 MCH 26.9 MCHC 31.4 L RDW 14.7 H Plt Count 222 MPV 11.2 H Immature Gran % (Auto) 1.6 H Neut % (Auto) 73.8 H Lymph % (Auto) 17.4 L [place] % (Auto) 7.0 Eos % (Auto) 0.0 Baso % (Auto) 0.2 Lymph # (Auto) 2.02 [place] # (Auto) 0.8 H Eos # (Auto) 0.0 Baso # (Auto) 0.0 Abs Immat Gran (auto) 0.19 H Absolute Neuts (auto) 8.6 H Absolute Nucleated RBC 0.000 Nucleated RBC % 0.0 % Immature Plt Fraction 6.9 Sodium 136 L Potassium 4.0 Chloride 103 Carbon Dioxide 27 Anion Gap 6 BUN 22 H D Creatinine 0.67 L Estim Creat Clear Calc 95 Estimated GFR > 60 Glucose 153 H Calcium 9.2 Magnesium 2.3 Total Bilirubin 0.4 AST 45 H ALT 31 Alkaline Phosphatase 68 C-Reactive Protein < 0.5 NT-Pro-B Natriuret Pep 186 H Total Protein 6.7 Albumin 3.9 Procalcitonin 0.1 Quality VTE Prophylaxis VTE prophylaxis: pharmacologic ordered Hospitalist MIPS Advance Care Plan I have confirmed that the patient's Advanced Care Plan is present, code status is documented, or surrogate decision maker is listed in patient medical record.: Yes Medication Reconciliation I have utilized all available resources to obtain, update and review the patients current medications (includes all prescriptions, OTC, herbals, cannabis, and nutritional supplements).: Yes The patient is not eligible for med reconciliation; the patient is in a emergent medical situation where delaying treatment would jeopardize the patients health.: Yes
[2025-02-19] MEDS: hydroCHLOROthiazide 12.5 MG CAPSULE PO (09:50)
[2025-02-19] MEDS: ENOXAPARIN 40 MG/0.4 ML SYRINGE SUB-Q (09:50)
[2025-02-19] MEDS: lisinopriL 5 MG TABLET PO (09:50)
[2025-02-19] MEDS: guaiFENesin 12 HR 600 MG TABCR 1200 MG PO ×2 (09:50→21:02)
[2025-02-19] MEDS: LORATADINE 10 MG TABLET PO (09:50)
[2025-02-19] MEDS: FLUTICASONE PROPIONATE 0.05% NA SPR 16 GM BTL (*BKC) 2 SPRAY NASAL ×2 (09:51→21:01)
[2025-02-19] MEDS: AZITHROMYCIN 500 MG/NS 250 ML 500 MG/250 ML BAG 250 MG IVPB (09:55)
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
[2025-02-19] MEDS: methylPREDNISolone SOD SUCC 40 MG VIAL 20 MG IV PUSH ×3 (12:01→23:59)
[2025-02-20] VITALS (14 sets, daily range): BP systolic 138–202; BP diastolic 64–110; PULSE 72–102; RESP 17–20; TEMP 36.1–36.7; O2SAT 94–100
[2025-02-20] MEDS: IPRATROPIUM 0.5 MG/ALBUTEROL SULFATE 2.5 MG AMPUL.NEB 3 ML INHALATION ×3 (04:36→20:11)
[2025-02-20] MEDS: lisinopriL 5 MG TABLET PO ×2 (04:43→08:19)
[2025-02-20] MEDS: hydrALAZINE HCL 20 MG/ML VIAL 10 MG IV PUSH (04:43)
[2025-02-20] MEDS: ACETAMINOPHEN 325 MG TABLET 650 MG PO ×2 (04:43→10:59)
[2025-02-20] MEDS: methylPREDNISolone SOD SUCC 40 MG VIAL 20 MG IV PUSH (05:39)
[2025-02-20 06:12] LABS: Basophils Percent Auto 0.3 % (0.2-1.2); Hematocrit 40.5 % (37.0-47.0); Hemoglobin 12.6 g/dL (12.0-15.0); Immature Granulocyte Absolute 0.21 K/mm3 (0.00-0.031); Immature Granulocyte Percent A 1.8 % (0-0.5); Lymphocytes Absolute Auto 1.76 K/mm3 (0.9-3.2); Lymphocytes Percent Auto 15.1 % (18.3-44.2); Mean Corpuscular HGB Conc 31.1 g/dl (32-36); Mean Corpuscular Hemoglobin 26.8 pg (26-34); Mean Corpuscular Volume 86.2 fl (80-100); Mean Platelet Volume 10.5 fl (7.4-10.4); Monocytes Absolute Auto 0.8 K/mm3 (0.1-0.6); Monocytes Percent Auto 6.7 % (2.6-8.5); Neutrophils Absolute Auto 8.8 K/mm3 (1.3-6.7); Neutrophils Percent Auto 76.1 % (45.5-73.1); Platelet Count Result 257 k/mm3 (150-375); Red Cell Distribution Width 14.6 % (11.5-14.5); White Blood Count 11.6 K/mm3 (4.5-10.0)
[2025-02-20 06:33] LABS: Alanine Aminotransferase 37 U/L (6-35); Albumin Level 3.7 g/dL (3.5-5.1); Alkaline Phosphatase 64 U/L (38-126); Anion Gap 8 mmol/L (4-12); Aspartate Amino Transferase 44 U/L (14-36); Bilirubin,Total 0.5 mg/dL (0.2-1.3); Blood Urea Nitrogen 27 mg/dL (7-17); Calcium 8.8 mg/dL (8.4-10.2); Carbon Dioxide 26 mmol/L (22-30); Chloride 101 mmol/L (98-107); Estimated CRCL calculation 89 ml/min; Estimated Glomerular Filt Rate > 60; Glucose 161 mg/dL (65-110); Magnesium 2.2 mg/dL (1.6-2.3); NT Pro B Type Natriuretic Pept 105 pg/mL (19.9-100); Potassium 3.7 mmol/L (3.4-5.0); Sodium 135 mmol/L (137-145); Total Protein 6.6 g/dL (6.3-8.2)
--- NOTE | 2025-02-20 07:11 | P.PNIM_ITS ---
Progress Note: A&P Assessment and Plan (1) Reactive airway disease with acute exacerbation: Code(s): J45.901 - Unspecified asthma with (acute) exacerbation Status: Acute Assessment and Plan: * Presented with shortness of bread, wheezing noted on auscultation * Continue IV steroid * continue with bronchodilators. * Pulmonology consulted - will follow recommendations * Switch Solu-Medrol -> Prednisone 40mg * Duoneb from q4hr -> 6hr * Continue Azith, guaifenesin, Claritin, Flonase * Add Ipratropium 0.06% (2) HTN (hypertension): Code(s): I10 - Essential (primary) hypertension Status: Acute Assessment and Plan: BP 138/64 - started on Lisinopril 5mg and HCTZ 12.5 mg daily - tolerating well. Plan Obesity patient counseled about lifestyle modification DVT prophylaxis - Sq Lovenox Full code Discharge plan: discharge home once stable with pulmonology follow up. Subjective Date/time seen: 02/20/25 07:11 Interval history: 64-year-old female past medical history of asthma on hypertension presented to the shortness of breath and wheezing. She was discharged from hospital this week after she was managed for asthma exacerbation, however still had SOB with wheezing which prompted her to present again. 02/20/2025 Pt sitting comfortably in bed at time of exam. Pulm still following: recommend d/c Solu-medrol with start prednisone 40mg q daily. Also recommend continuing Azithro, advair, duonebs, and guaifenesin. Symptoms improving, likely discharge tomorrow. Review of Systems Review of Systems: All other systems reviewed and negative except as noted in the history above. Exam Narrative: General: alert and comfortable Eyes: EOMI, PERRLA ENNT External ears normal, Neck is supple, no masses, Respiratory systems: bilateral wheezing Cardiovascular S1, S2, normal rhythm, no murmur, rub, or gallop; no thrill or palpable murmurs on palpation. Gastrointestinal: soft, non-tender, and non-distended abdomen with no masses; BS present Skin: no rash, lesions, ulcerations, subcutaneous nodules or induration Musculoskeletal: no abnormality and no tenderness, normal ROM Neurologic: Alert and oriented x3, non focal Mental Status Exam: normal affect Objective Data Vital Signs Vital Signs: Vital Signs - 24 hr 02/19/25 08:00 02/19/25 08:35 02/19/25 08:35 Temperature Pulse Rate 75 75 Respiratory Rate 20 20 Blood Pressure Pulse Oximetry 91 Oxygen Delivery Room Air Room Air 02/19/25 08:45 02/19/25 12:26 02/19/25 12:28 Temperature Pulse Rate 72 86 Respiratory Rate 20 20 Blood Pressure Pulse Oximetry 94 Oxygen Delivery Room Air 02/19/25 12:35 02/19/25 14:00 02/19/25 15:47 Temperature 97.3 F L Pulse Rate 72 86 Respiratory Rate 20 18 Blood Pressure 159/81 H Pulse Oximetry 97 96 Oxygen Delivery Room Air 02/19/25 15:47 02/19/25 15:54 02/19/25 20:00 Temperature Pulse Rate 85 96 Respiratory Rate 20 20 Blood Pressure Pulse Oximetry Oxygen Delivery Room Air 02/19/25 20:24 02/19/25 20:26 02/19/25 20:33 Temperature Pulse Rate 91 98 Respiratory Rate 20 20 Blood Pressure Pulse Oximetry 96 Oxygen Delivery Room Air 02/19/25 21:42 02/20/25 04:25 02/20/25 04:37 Temperature 98.2 F Pulse Rate 88 72 73 Respiratory Rate 22 H 20 Blood Pressure 160/74 H 202/106 H Pulse Oximetry 95 Oxygen Delivery 02/20/25 04:43 02/20/25 05:46 Temperature 98.0 F Pulse Rate 75 72 Respiratory Rate 20 20 Blood Pressure 200/92 H Pulse Oximetry 97 Oxygen Delivery Intake/Output Intake/Output: Intake & Output 02/17/25 02/18/25 02/19/25 02/20/25 23:59 23:59 23:59 23:59 Intake Total 2029 1466 550 Balance 2029 1466 550 Meds/Results Medications: Active Medications Generic Name Dose Route Start Last Admin Trade Name Freq PRN Reason Stop Dose Admin Acetaminophen 650 mg 02/20/25 03:35 02/20/25 04:43 Acetaminophen 325 Mg Tablet PO 650 mg Q4H PRN Administration Mild Pain (1-3) or Headache Albuterol/Ipratropium 3 ml 02/18/25 12:00 02/20/25 04:36 Ipratropium 0.5 Mg/Albuterol Sulfate 2.5 Mg Ampul.Neb 3 Ml INHALATION 3 ml Q4HRT REBECA Administration Cyclobenzaprine HCl 5 mg 02/20/25 04:33 Cyclobenzaprine Hcl 5 Mg Tablet PO TID PRN muscle spasm Enoxaparin Sodium 40 mg 02/19/25 09:00 02/19/25 09:50 Enoxaparin 40 Mg/0.4 Ml Syringe SUB-Q 40 mg DAILY REBECA Administration Fluticasone Propionate 2 spray 02/18/25 10:00 02/19/25 21:01 Fluticasone Propionate 0.05% Na Spr 16 Gm Btl (*Bkc) NASAL 2 spray Q12HR REBECA Administration Guaifenesin 1,200 mg 02/18/25 09:55 02/19/25 21:02 Guaifenesin 12 Hr 600 Mg Tabcr PO 1,200 mg Q12HR REBECA Administration Hydrochlorothiazide 12.5 mg 02/18/25 19:05 02/19/25 09:50 Hydrochlorothiazide 12.5 Mg Capsule PO 12.5 mg QAM REBECA Administration Azithromycin 500 mg in 250 mls @ 250 mls/hr 02/18/25 10:00 02/19/25 09:55 Zithromax IVPB 250 mls/hr Q24H REBECA Administration Ibuprofen 600 mg 02/20/25 04:33 Ibuprofen 600 Mg Tablet PO TID PRN pain 4-6 Lisinopril 5 mg 02/19/25 09:00 02/19/25 09:50 Lisinopril 5 Mg Tablet PO 5 mg QAM REBECA Administration Loratadine 10 mg 02/18/25 10:00 02/19/25 09:50 Loratadine 10 Mg Tablet PO 10 mg QAM REBECA Administration Methylprednisolone Sodium Succinate 20 mg 02/19/25 12:00 02/20/25 05:39 Methylprednisolone Sod Succ 40 Mg Vial IV PUSH 20 mg Q6HR REBECA Administration Radiology Results: ITS Impressions Chest X-Ray 02/18/25 05:49 Impression: Clear lungs. Labs Labs: Laboratory Results - last 24 hr 02/20/25 06:01 WBC 11.6 H RBC 4.70 Hgb 12.6 Hct 40.5 MCV 86.2 MCH 26.8 MCHC 31.1 L RDW 14.6 H Plt Count 257 MPV 10.5 H Immature Gran % (Auto) 1.8 H Neut % (Auto) 76.1 H Lymph % (Auto) 15.1 L [place] % (Auto) 6.7 Eos % (Auto) 0.0 Baso % (Auto) 0.3 Lymph # (Auto) 1.76 [place] # (Auto) 0.8 H Eos # (Auto) 0.0 Baso # (Auto) 0.0 Abs Immat Gran (auto) 0.21 H Absolute Neuts (auto) 8.8 H Absolute Nucleated RBC 0.000 Nucleated RBC % 0.0 Sodium 135 L Potassium 3.7 Chloride 101 Carbon Dioxide 26 Anion Gap 8 BUN 27 H Creatinine 0.72 Estim Creat Clear Calc 89 Estimated GFR > 60 Glucose 161 H Calcium 8.8 Magnesium 2.2 Total Bilirubin 0.5 AST 44 H ALT 37 H Alkaline Phosphatase 64 NT-Pro-B Natriuret Pep 105 H Total Protein 6.6 Albumin 3.7 Quality VTE Prophylaxis VTE prophylaxis: pharmacologic ordered
[2025-02-20] MEDS: IBUPROFEN 600 MG TABLET PO (08:19)
[2025-02-20] MEDS: hydroCHLOROthiazide 12.5 MG CAPSULE PO (08:19)
[2025-02-20] MEDS: guaiFENesin 12 HR 600 MG TABCR 1200 MG PO ×2 (08:19→20:48)
[2025-02-20] MEDS: FLUTICASONE PROPIONATE 0.05% NA SPR 16 GM BTL (*BKC) 2 SPRAY NASAL ×2 (08:20→20:48)
[2025-02-20] MEDS: LORATADINE 10 MG TABLET PO (08:20)
[2025-02-20] MEDS: ENOXAPARIN 40 MG/0.4 ML SYRINGE SUB-Q (08:22)
[2025-02-20] MEDS: IPRATROPIUM NASAL SPRAY 0.06% 15 ML BOTTLE 2 SPRAY NASAL ×2 (08:30→13:00)
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
[2025-02-20] MEDS: predniSONE 20 MG TABLET 40 MG PO (09:47)
[2025-02-20] MEDS: AZITHROMYCIN 500 MG/NS 250 ML 500 MG/250 ML BAG 250 MG IVPB (11:00)
[2025-02-20 18:08] LABS: Adenovirus DNA Not Detected (Not Detected); Chlamydophila pneumoniae Not Detected (Not Detected); Coronavirus 229E Not Detected (Not Detected); Coronavirus HKU1 Not Detected (Not Detected); Coronavirus NL63 Not Detected (Not Detected); Coronavirus OC43 Not Detected (Not Detected); Human Metapneumovirus Detected (Not Detected); Human Parainfluenza Virus 1 Not Detected (Not Detected); Human Parainfluenza Virus 2 Detected (Not Detected); Human Parainfluenza Virus 3 Not Detected (Not Detected); Human Parainfluenza Virus 4 Not Detected (Not Detected); Human RSV B Not Detected (Not Detected); Influenza A Not Detected (Not Detected); Influenza B Not Detected (Not Detected); Mycoplasma pneumoniae Not Detected (Not Detected); Rhinovirus/Enterovirus Not Detected (Not Detected)
[2025-02-21] VITALS (8 sets, daily range): BP systolic 171; BP diastolic 79; PULSE 64–117; RESP 17–20; TEMP 36.7; O2SAT 94–96
[2025-02-21] MEDS: IPRATROPIUM 0.5 MG/ALBUTEROL SULFATE 2.5 MG AMPUL.NEB 3 ML INHALATION ×2 (01:42→08:55)
[2025-02-21 06:11] LABS: Basophils Percent Auto 0.2 % (0.2-1.2); Eosinophils Percent Auto 0.3 % (0-4.4); Hematocrit 40.5 % (37.0-47.0); Hemoglobin 12.7 g/dL (12.0-15.0); Immature Granulocyte Absolute 0.22 K/mm3 (0.00-0.031); Immature Granulocyte Percent A 1.6 % (0-0.5); Lymphocytes Absolute Auto 3.23 K/mm3 (0.9-3.2); Lymphocytes Percent Auto 24.1 % (18.3-44.2); Mean Corpuscular HGB Conc 31.4 g/dl (32-36); Mean Corpuscular Hemoglobin 26.7 pg (26-34); Mean Corpuscular Volume 85.1 fl (80-100); Mean Platelet Volume 10.5 fl (7.4-10.4); Monocytes Absolute Auto 1.5 K/mm3 (0.1-0.6); Monocytes Percent Auto 11.2 % (2.6-8.5); Neutrophils Absolute Auto 8.4 K/mm3 (1.3-6.7); Neutrophils Percent Auto 62.6 % (45.5-73.1); Platelet Count Result 276 k/mm3 (150-375); Red Blood Count 4.76 M/mm3 (4.2-5.4); Red Cell Distribution Width 14.7 % (11.5-14.5); White Blood Count 13.4 K/mm3 (4.5-10.0)
[2025-02-21 06:23] LABS: Alanine Aminotransferase 36 U/L (6-35); Albumin Level 3.5 g/dL (3.5-5.1); Alkaline Phosphatase 61 U/L (38-126); Anion Gap 6 mmol/L (4-12); Aspartate Amino Transferase 43 U/L (14-36); Bilirubin,Total 0.5 mg/dL (0.2-1.3); Blood Urea Nitrogen 37 mg/dL (7-17); Calcium 8.8 mg/dL (8.4-10.2); Carbon Dioxide 31 mmol/L (22-30); Chloride 100 mmol/L (98-107); Estimated CRCL calculation 70 ml/min; Estimated Glomerular Filt Rate 60; Glucose 110 mg/dL (65-110); Magnesium 2.3 mg/dL (1.6-2.3); Potassium 3.9 mmol/L (3.4-5.0); Sodium 137 mmol/L (137-145); Total Protein 6.4 g/dL (6.3-8.2)
[2025-02-21 06:29] LABS: NT Pro B Type Natriuretic Pept 102 pg/mL (19.9-100)
[2025-02-21] MEDS: guaiFENesin 12 HR 600 MG TABCR 1200 MG PO (08:35)
[2025-02-21] MEDS: lisinopriL 5 MG TABLET PO (08:35)
[2025-02-21] MEDS: LORATADINE 10 MG TABLET PO (08:35)
[2025-02-21] MEDS: hydroCHLOROthiazide 12.5 MG CAPSULE PO (08:35)
[2025-02-21] MEDS: predniSONE 20 MG TABLET 40 MG PO (08:35)
[2025-02-21] MEDS: AZITHROMYCIN 250 MG TABLET 500 MG PO (08:36)
[2025-02-21] MEDS: ENOXAPARIN 40 MG/0.4 ML SYRINGE SUB-Q (08:40)
--- NOTE | 2025-02-21 09:17 | P.CDI_ITS ---
CDI Query Clarification Request Patient with a BMI of 57.7 please provide a diagnosis to accompany this finding: * Overweight * Obesity * Morbid Obesity * Other/Unknown <Sunshine Luna RN - Last Filed: 02/21/25 09:18> Clarified Diagnosis Clarified Diagnosis: Morbid Obesity <Narendra Hines PA-C - Last Filed: 02/21/25 09:20>
--- NOTE | 2025-02-21 10:48 | HOMEO2EVAL ---
Evaluation was performed at [facility] Home Oxygen Evaluation RC: Home Oxygen (O2) Evaluation Start: 02/21/25 09:26 Freq: ONCE Status: Active Protocol: RPE Activity Type Activity Date Activity User E-sign Co-sign Detail Recorded Client Recorded Date Recorded By Document 02/21/25 10:30 KRM [email or web address] 02/21/25 10:48 KRM Document 02/21/25 10:32 KRM [email or web address] 02/21/25 10:48 KRM Document 02/21/25 10:34 KRM [email or web address] 02/21/25 10:48 KRM 02/21/25 02/21/25 02/21/25 10:30 10:32 10:34 Home O2 Evaluation [Oxygen] -Test Phase Resting Exercise Exercise -Oxygen Delivery Room Air Room Air Room Air [Pulse Oximetry] -Pulse Oximetry (90-100 %) 95 94 95 [Pulse Rate] -Pulse Rate (60-100 beats/min) 117 H 117 H 110 H [Evaluation] -Activity Tolerance Fair Fair [Exercise] -Ambulation Distance (feet) 25 -Ambulation Distance (meters) 7.61 [Charges] -Evaluation Charges O2 Evaluation by Pulmonary
--- NOTE | 2025-02-21 10:48 | PCRCNOTE ---
home o2 eval completed, pt. does not require any o2 at rest and with activity. Pt. does need nocturnal o2 at 2lpm per apnea link. Set pt. up with IV resp care.
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
--- NOTE | 2025-02-21 11:34 | PM.DS ---
DS: Admitting Diagnosis Discharge Date 02/21/2025 Admitting Diagnosis Asthma exacerbation DS: Discharge Diagnosis Discharge Diagnosis (1) Reactive airway disease with acute exacerbation: Code(s): J45.901 - Unspecified asthma with (acute) exacerbation Status: Acute (2) HTN (hypertension): Code(s): I10 - Essential (primary) hypertension Status: Acute DS: Summary Hospital Course Reason for hospitalization: shortness of breath Hospital Course: 64-year-old female past medical history of asthma on hypertension presented to the shortness of breath and wheezing. She was discharged from the hospital yesterday after she was managed for asthma exacerbation, however she noted that it she can not have shortness of breath with wheezing which prompted her to present to the again for proper evaluation and care. Denies Any chest diarrhea dysuria focal symptoms. ER evaluation blood pressure 200/96, respiratory 24, labs today for WBC 11.3 RSV, COVID, flu negative. Chest x-ray unremarkable. Patient was started on steroid and bronchodilators.. Problem pulmonology consulted. Pulmonology was consulted regarding reactive airway disease with asthma exacerbation. They initated the patient on Solumedrol with duonebs q4hrs, azithromycin 500mg daily, loratadine and fluticasone. Echocardiogram was also ordered which showed normal lv function, EF 65-70%, G1DD. Throughout hospitalization, patient's symptoms improved. Solu-Medrol was decreased to 20 mg IV q.6, DuoNebs recurrent herniated hyper 4 hours and azithromycin and guaifenesin continued. Overnight oximetry on 2 L showed average saturation 96% with a low saturation of 90%. Patient was initially discontinued off of her Solu-Medrol and placed on prednisone 40 mg a day and her DuoNeb treatments were decreased from every 4 hours 6 hours. On 02/21, respiratory pathogen panel returned positive for human metapneumovirus and parainfluenza virus 2. Symptoms continue to improve hospitalization. On the morning of 02/21, patient with no wheezing or phelgm. She states her dyspnea on exertion is at her baseline. Vital signs remained stable, she is afebrile. 02 saturation is at 96% on room air. Pt is otherwise hemodynamically stable and at her baseline in terms of respiration. Pulmonlogy cleared pt from discharge from their point of view. Plan for discharge home with azithromycin x1 day, and will instruct patient to continue advair bid, rescue albuterol prn, resuce duobneb prn, guaifenesin for congestion, loratidine, flonase nasal spray and ipratropium nasal spray. Pt amenable to this plan. She has been given follow up information with Dr. Bowles's office of pulmonology. Status at Discharge Functional status at discharge: independent ambulation Overall status at discharge: patient is progressing back to baseline Time Spent with Patient Time attestation: Total time spent providing and/or coordinating discharge services: 35 Exam Narrative: General: alert and comfortable Eyes: EOMI, PERRLA ENNT External ears normal, Neck is supple, no masses, Respiratory systems: no crackles, no rales, no rhonchi, no wheezes and lung sounds not diminished Cardiovascular S1, S2, normal rhythm, no murmur, rub, or gallop; no thrill or palpable murmurs on palpation. Gastrointestinal: soft, non-tender, and non-distended abdomen with no masses; BS present Skin: no rash, lesions, ulcerations, subcutaneous nodules or induration Musculoskeletal: no abnormality and no tenderness, normal ROM Neurologic: Alert and oriented x3, non focal Mental Status Exam: normal affect DS: Data Data Completed and Pending Labs on day of discharge: Labs from last 24 hours 02/21/25 02/18/25 05:50 10:52 WBC 13.4 H RBC 4.76 Hgb 12.7 Hct 40.5 MCV 85.1 MCH 26.7 MCHC 31.4 L RDW 14.7 H Plt Count 276 MPV 10.5 H Immature Gran % (Auto) 1.6 H Neut % (Auto) 62.6 Lymph % (Auto) 24.1 [place] % (Auto) 11.2 H Eos % (Auto) 0.3 Baso % (Auto) 0.2 Lymph # (Auto) 3.23 H [place] # (Auto) 1.5 H Eos # (Auto) 0.0 Baso # (Auto) 0.0 Abs Immat Gran (auto) 0.22 H Absolute Neuts (auto) 8.4 H Absolute Nucleated RBC 0.000 Nucleated RBC % 0.0 Sodium 137 Potassium 3.9 Chloride 100 Carbon Dioxide 31 H Anion Gap 6 BUN 37 H D Creatinine 0.94 Estim Creat Clear Calc 70 Estimated GFR 60 Glucose 110 Calcium 8.8 Magnesium 2.3 Total Bilirubin 0.5 AST 43 H ALT 36 H Alkaline Phosphatase 61 NT-Pro-B Natriuret Pep 102 H Total Protein 6.4 Albumin 3.5 Nasal RSV Type A (PCR) Not detected Nasal RSV Type B (PCR) Not detected Chlamy pneumoniae PCR Not detected Adenovirus DNA Not detected Human Bocavirus (SAGE) Not detected Coronavirus Type OC43 Not detected Coronavirus Type HKU1 Not detected Coronavirus Type 229E Not detected Coronavirus Type NL63 Not detected Human Metapneumovir PCR Detected A Influenza A (PCR) Not detected Influenza A (H1) RNA Not detected Influenza A (H3) PCR Not detected M. pneumoniae DNA Not detected Parainfluenza PCR Not detected Parainfluenza 2 (PCR) Detected A Parainfluenza 3 RNA (PCR) Not detected Parainfluenza 4 (PCR) Not detected Rhino/Enterovirus (SAGE) Not detected Influenza Type B (PCR) Not detected Misc Test Comment see note Discharge Plan Discharge Attending physician on discharge: Nagi Deutsch Consulting providers: Carol Tejeda; Narendra Hines Discharging Clinician: Narendra Hines Anticipated Discharge Date/Time: 02/21/25 11:27 Patient Disposition: Home Activity: as tolerated Diet: as tolerated Discharge Instructions: Discharge disposition: Stable Take medications as prescribed Monitor blood pressures Take caution while standing, rising, or moving Change positions slowly taking a break between each position change If you standing feel dizzy sit back down and take a break Encouraged to continue with yearly vaccinations Return to the emergency department if he developed sudden shortness of breath, chest pain, nausea, vomiting, upset stomach or intractable diarrhea Return to the emergency department if you develop fever greater than 101.5 Follow-up with the primary care physician within 1-2 weeks Thank you for [facility] for your healthcare needs Patient Instructions: Antibiotic Form Patient Language: Armenian Stand Alone Forms: General Discharge Information Follow-up/Referrals: CLAIRE,KIMBERLY PETERSEN [Primary Care Provider] - Marcello Bowles MD [Physician] - Discharge Medications: New azithromycin [Zithromax] 250 mg Tablet 500 mg PO DAILY 1 Days Qty: 2 0RF loratadine 10 mg Tablet 10 mg PO QAM 20 Days Qty: 20 0RF ipratropium bromide 42 mcg (0.06 %) spray,non-aerosol 2 spray intranasal TID Qty: 15 0RF Rx Instructions: administer into each nostril Continued (DME) Aerochamber Plus Z Stat Spacer See Rx Instructions .Route Qty: 1 0RF Rx Instructions: As directed guaifenesin [Mucinex] 600 mg tablet extended release 12hr 600 mg PO BID 10 Days Qty: 20 0RF (DME) Mike Aerosol Fa[place]ner Enhancer Spacer See Rx Instructions .Route Qty: 1 0RF Rx Instructions: As directed ibuprofen 600 mg tablet 600 mg PO TID PRN (Reason: pain) Qty: 30 0RF (DME) nebulizer and compressor Device See Rx Instructions .Route Qty: 1 0RF Rx Instructions: As directed (DME) nebulizer accessories Kit See Rx Instructions .Route Qty: 1 11RF Rx Instructions: As directed sod bicarb-sod chlor-neti pot Packet With Rinse Device 1 ea .Route BID PRN (Reason: severe congestion) Qty: 50 11RF Rx Instructions: PRN Excedrin Migraine 250-250-65 mg tablet 2 tablet PO Q4-6H PRN (Reason: pain) Qty: 30 0RF Rx Instructions: for 5 days only ipratropium-albuterol 0.5 mg-3 mg(2.5 mg base)/3 mL solution for nebulization 3 ml inhalation Q6H PRN (Reason: shortness of breath or wheezing) Qty: 90 11RF benzonatate 200 mg capsule 200 mg PO TID PRN (Reason: cough) Qty: 30 0RF azelastine-fluticasone [Dymista] 137-50 mcg/spray spray,non-aerosol 1 spray intranasal BID Qty: 23 0RF Rx Instructions: administer into each nostril cyclobenzaprine 5 mg tablet 5 mg PO TID PRN (Reason: muscle spasm) Qty: 10 0RF albuterol sulfate 90 mcg/actuation HFA aerosol inhaler 2 puff inhalation Q4-6H PRN (Reason: shortness of breath or wheezing) Qty: 8.5 0RF fluticasone propion-salmeterol [Advair HFA] 230-21 mcg/actuation Hfa Aerosol Inhaler 2 puff inhalation Q12HRT 60 Days Qty: 2 3RF lidocaine [Lidoderm] 5 % Adhesive Patch,Medicated 1 patch transdermal DAILY PRN (Reason: pain) Rx Instructions: upper back Discontinued amoxicillin-pot clavulanate 875-125 mg tablet 1 tablet PO Q12H Qty: 8 0RF prednisone 20 mg Tablet 40 mg PO DAILY@0800 5 Days Qty: 10 0RF Date of admission: 02/20/25 10:25 Primary Care Provider: FARAZNICOLA Admitting Provider: Eldon Penaloza Attending physician on admission: Eldon Penaloza Condition: Stable Quality VTE Prophylaxis VTE prophylaxis: pharmacologic ordered Hospitalist MIPS Heart Failure (Exclusion) Patient has history of Heart Transplant or Left Ventricular Assistive Device?: No IF YES, STOP HERE Heart Failure (Qualifier) Patient has current or prior documentation of LVEF less than or equal to 40%, or mod/servere depressed LVSF?: No IF NO, STOP HERE
== END 2025-02-21 12:55 | disposition home or self-care (01) | DRG 202 ==
LOC: ANHED 06:11 → ANH3MEDSUR 06:49
PROVIDERS: Internal Medicine; Internal Medicine Pulmonary Disease; Nurse Practitioner Family; Admitting Provider Internal Medicine; Emergency Provider Emergency Medicine; PCP Nurse Practitioner Family; Visit Provider Physician Assistant
DX: J45.901 Unspecified asthma with (acute) exacerbation (principal); Z68.43 Body mass index [BMI] 50.0-59.9, adult; B97.81 Human metapneumovirus as the cause of diseases classified elsewhere; B97.89 Other viral agents as the cause of diseases classified elsewhere; I10 Essential (primary) hypertension; E66.01 Morbid (severe) obesity due to excess calories; M19.90 Unspecified osteoarthritis, unspecified site; Z20.822 Contact with and (suspected) exposure to COVID-19; Z90.49 Acquired absence of other specified parts of digestive tract
CPT/HCPCS: 36415; 71045; 80053; 83735; 83880; 84145; 85025; 85055; 86140; 87633; 87637; 93005; 94618; 94640; 94762; 96365; 96366; 96375; 99285; A9270; C8929; J0360; J0456; J1650; J2919; J3475; J7512; Q9957

== ENCOUNTER 2025-04-19 14:20 | Outpatient (CLI) | payer MEDICARE, MEDICAID, SELFPAY ==
--- OUTSIDE RECORDS SUMMARY | 2025-04-19 14:24 | XMS_ITS | Continuity of Care Document ---
Author Organization [facility] Address [address] [place] [address] [place] [address] Phone Care Team Providers Care Business Operations Coordinator Name Role Phone Wilson Arriaza MD Unavailable Unavailable Allergies, Adverse Reactions, Alerts Substance Reaction Status Criticality No Known Allergies Active No Inform ation Medications Medication Instructions Dosage Effective Dates (start - stop) Status Comments Stow 5 mg-325 mg tablet take 1 tablet [...] Copied on Encounter OFFICE/OUTPA TIENT VISIT, EST [facility], [address], [place], [place], [address], [place] tel:[phone] [facility] Medicine HTN (chief complaint) hematuria1 (chief complaint) shoulder pain1 (chief complaint) Adhesive capsulitis of right shoulderHematuriaEs sential (primary) hypertension May- 6 Arsalan Rachel. [address], [address], [place], [place], [address] , [place]. tel:[phone] Referring Provider: Susi Cel[address], [place], [place], [id number]. tel:[phone] OFFICE/OUTPA TIENT VISIT, [facility], [address], [place], [place], [address], [place] tel:[phone] [facility] HLP (chief complaint) hematuria1 (chief complaint) low D (chief complaint) HTN1 (chief complaint) sinus (chief complaint) HematuriaMixed hyperlipidemiaMetab olic syndromeEssential (primary) hypertension Lalit- 6 Arsalan Rachel. [address], [address], [place], [place], [address] , [place]. tel:[phone] Referring Provider: Susi Cel[address], [place], [place], [address]. tel:[phone] PREV VISIT, EST, AGE 40-64 [facility], [address], [place], [place], [address], [place] tel:[phone] [facility] Medicine PHysical (chief complaint) Encounter for general adult medical exam w abnormal findingsEssential (primary) hypertensionBody mass index (BMI) 45.0-49.9, adultHyperlipidemia , unspecified 6 Arsalan Stafford [address], [address], [place], [place], [address] , [place]. tel:[phone] Referring Provider: Susi Cel[address], [place], [place], [address]. tel:[phone] OFFICE/OUTPA TIENT VISIT, [facility], [address], [place], [place], [address], [place] tel:[phone] [facility] Medicine sinus (chief complaint) HLP (chief complaint) HTN (chief complaint) Acute sinusitisMixed hyperlipidemiaEssen tial (primary) hypertension Nov-0 6 Arsalan Stafford [address], [address], [place], [place], [address] , [place]. tel:[phone] Referring Provider: Susi Celeste [address], [place], [place], [address]. tel:[phone] OFFICE/OUTPA TIENT VISIT, [facility], [address], [place], [place], [address], [place] tel:[phone] [facility] HTN1 (chief complaint) HLP (chief complaint) joint pain (chief complaint) Essential (primary) hypertensionMixed hyperlipidemiaBody mass index (BMI) 50-59.9 , adultChronic pain syndrome 6 Arsalan Stafford [address], [address], [place], [place], [address] , [place]. [phone] Referring Provider: Susi Cel[address], [place], [place], [address]. tel:[phone] OFFICE/OUTPA TIENT VISIT, [facility], [address], [place], [place], [address], [place] tel:[phone] [facility] HTN (chief complaint) ankle pain (chief complaint) HLP (chief complaint) Dietary surveillance and counselingUnspecifi ed essential hypertensionHyperli pidaemiaAnkle pain Sep-2 2201 5 Arsalan Stafford [address], [address], [place], [place], [address] , [place]. tel:[phone] Referring Provider: Susi Celeste [address], [place], [place], [address]. tel:[phone] OFFICE/OUTPA TIENT VISIT, [facility], [address], [place], [place], [address], [place] tel:[phone] [facility] HTN (chief complaint) ankle pain (chief complaint) Dietary surveillance and counselingBP - High blood pressureBMI 50.0 to 59.9Ankle pain 5 Arsalan Rachel. [address], [address], [place], [place], [address] , [place]. [phone] Referring Provider: Susi Cel[address], [place], [place], [address]. tel:[phone] PREV VISIT, EST, AGE 40-64 [facility], [address], [place], [place], [address], [place] tel:[phone] [facility] Physical (chief complaint) Dietary surveillance and counselingRoutine Medical ExamRoutine Medical Exam [address] Arsal[address], [place], [place], [address] , [place]. [phone] Referring Provider: Susi Celeste [address], [place], [place], [address]. tel:[phone] OFFICE/OUTPA TIENT VISIT, EST [facility], [address], [place], [place], [address], [place] tel:[phone] [facility] breast lesion (chief complaint) Hematuria (chief complaint) Dietary surveillance and counselingLump or mass in breastHEMATURIA NOSPolyp of corpus uteri 3 Arsal[address], [place], [place], [address] , [place]. [phone] Referring Provider: Susi Celeste [address], [place], [place], [address]. tel:[phone] OFFICE/OUTPA TIENT VISIT, EST [facility], [address], [place], [place], [address], [place] tel:[phone] [facility] HLP (chief complaint) Vitamin D (chief complaint) breast density (chief complaint) abdominal pain (chief complaint) hematuria (chief complaint) Other and unspecified hyperlipidemiaUnspe cified abnormal mammogramAbdominal PainHEMATURIA NOSDietary surveillance and counseling 3 Arsalan Rachel. [address], [address], [place], [place], [address] , [place]. tel:[phone] Referring Provider: Wilson Arriaza, Susi [address], [place], [place], [address]. tel:[phone] PREV VISIT, EST, AGE 40-64 [facility], [address], [place], [place], [address], [place] tel:[phone] [facility] Physical (chief complaint) Dietary surveillance and counselingRoutine Medical ExamRoutine Medical Exam 3 Arsalan Rachel. [address], [place], [place], [address] , [place]. tel:[phone] Family History Family Member Type Diagnosis Age [...] polyp. Pt had appointment with urology at [facility] and then she canceled it. [...] ordered Referral Referred To: Christian Powell [address] [place], [phone] Ordered: Referrals: Christian Powell. Evaluate and treat ordered Referral Ordered: DXA BONE DENSITY, AXIAL ordered Referral Ordered: Moises Hoang (related to Ankle pain) ordered Referral Ordered: KNEE XRAY TWO-VIEW Left ordered Referral Referred To: Moises Hoang [address] [place], [phone] Ordered: Referrals: Moises Hoang. Evaluate and treat [...] Mental Status Date Cognitive Assessment Orientation - [place] ed to time, place, person, situation.
--- OUTSIDE RECORDS SUMMARY | 2025-04-19 14:24 | XMS_ITS | Patient Health Record ---
Author Organization [facility] Address [address] [place] [address] Care Team Providers Care Weight Loss Counselor Name Role Phone Sujata Gorman Primary Care Provider [phone] Allergies No Known Allergies Reason For Referral No Information Medications Medication SIG (Take, Route, Frequency, Duration) Notes Start Date End Date Status Chlorhexidine Gluconate 0.12 % 15 mL swish for 30 seconds, then spit. Do not swallow. Mouth/Throat Twice a day; Duration: 30 days 04/03/2025 Active Lisinopril 10 MG 1 tablet Orally Once a day; Duration: 30 days 04/03/2025 Active Amoxicillin-Pot Clavulanate 500-125 MG 1 tablet Orally 3 times a day; Duration: 7 days 04/03/2025 Active Fluticasone Propionate 50 MCG/ACT 1 spray in each nostril Nasally Twice a day Active Social History Tobacco Use: Social History Observation Description Date Details (start date - stop date) Never Smoker NA - NA Sex Assigned At : Social History Observation Description Sex Assigned At Female Tobacco Control (Standard) Question Answer Notes Tobacco use: Nonsmoker Problems Problem Type SNOMED Code ICD Code Onset Dates Problem Status W/U Status Risk Notes Problem Overweight (083500127) Over weight (E66.3) Active confirmed Problem Morbid obesity (030984527) Obesity, morbid, BMI 40.0-49.9 (E66.01) Active confirmed Problem Primary hypertension (26164138) Primary hypertension (I10) Active confirmed Vital Signs Heart Rate 92 /min 04/03/2025 Temperature 97.8 degrees Fahrenheit 04/03/2025 Respiratory Rate 16 /min 04/03/2025 Oximetry 97 % 04/03/2025 Blood pressure diastolic 100 mm Hg 04/03/2025 Height 62 in 04/03/2025 Blood pressure systolic 148 mm Hg 04/03/2025 Weight 312.8 lbs 04/03/2025 BMI 57.21 kg/m2 04/03/2025 Encounters Encounter Location Date Provider Diagnosis [address] [place], [place] [address] 04/03/2025 Sujata Gorman Over weight E66.3 ; Primary hypertension I10 ; Tooth abscess K04.7 ; Nutritional counseling Z71.3 and Obesity, morbid, BMI 40.0-49.9 E66.01 Assessments Encounter Date Diagnosis (ICD Code) Assessment Notes Treatment Notes Treatment Clinical Notes Section Notes 04/03/2025 Over weight (ICD-10 - E66.3) 04/03/2025 Primary hypertension (ICD-10 - I10) HTN: Patient was instructed to take meds as directed and warned of all consequences of high blood pressure including but not limited to STRO[place], [place], Renal failure. Patient was warned if any headache, visual changes, neurological symptoms or any concerns immediately go to ER or call 911 . Patient verbalized understanding. Patient advised to check his b/p randomely , keep an eye of blood pressure. Provided script for BP machine if needed. May do b/p log and may bring log next visit . Advised to cut down sodium intake. Do not add salt to meals. Advised to exercise if not contra-indicated. 30m daily 5 x weekly. Patient advised to do labs as ordered., High Blood Pressure: Care Instructions material was printed, Learning About High Blood Pressure material was printed, Low Sodium Diet (2,000 Milligram): Care Instructions material was printed 04/03/2025 Tooth abscess (ICD-10 - K04.7) Abscessed Tooth: Care Instructions material was printed 04/03/2025 Nutritional counseling (ICD-10 - Z71.3) 04/03/2025 Obesity, morbid, BMI 40.0-49.9 (ICD-10 - E66.01) 04/03/2025 Other ADRIEN: [facility] Learning About the Safe Use of Antibiotics material was discussed. Pt was educated on use of antibiotic medication including dosing, side effects, adverse effects and anticipated response. Pt was also educated on importance of completing full course of treatment as ordered. Patient voiced understanding of all. Plan Of Treatment No Information Insurance Providers Payer Name Payer Address Payer Phone Subscriber Number Group Number Insured Name Patient Relationship to Insured Coverage Start Date Coverage End Date [employer] [address] [address] ALETHEA ANTHONY [phone] [id number] Lori Barnard Self - patient is the insured 5 Medical (General) History Hospitalization History Reason Date(Month/Year) virus 02/27
--- OUTSIDE RECORDS SUMMARY | 2025-04-19 14:24 | XMS_ITS | Clinical Summary ---
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 Gender Identity Not on file Sexual Orientation Not on file Last Filed Vital Signs Vital Sign Reading Time Taken Comments Blood Pressure 165/109 07/16/2021 4:31 PM TELEPHONE OPERATORS SUPERVISOR Pulse 86 07/16/2021 4:31 PM TELEPHONE OPERATORS SUPERVISOR Temperature 36.7 C (98 F) 07/16/2021 3:13 PM TELEPHONE OPERATORS SUPERVISOR Respiratory Rate 20 07/16/2021 4:31 PM TELEPHONE OPERATORS SUPERVISOR Oxygen Saturation 97% 07/16/2021 4: 31 PM TELEPHONE OPERATORS SUPERVISOR Inhaled Oxygen Concentration - - Weight 141.2 kg (311 lb 4.6 oz) 07/16/2021 3:13 PM TELEPHONE OPERATORS SUPERVISOR Height 157.5 cm (5' 2) 07/16/2021 3:13 PM TELEPHONE OPERATORS SUPERVISOR Body Mass Index 56.94 07/16/2021 3:13 PM TELEPHONE OPERATORS SUPERVISOR Plan of Treatment Not on file Insurance [facility] Care Teams Freelance Patternmaker Relationship Specialty Start Date End Date Sunshine Blancas NP [address] [place] [id number] PCP - General Nurse Practitioner 07/16/21
--- NOTE | 2025-04-22 12:43 | WPDPFTINT ---
PFT Procedure Performed PFT Procedure Performed Spirometry with Pre/Post Bronchodilator Plethysmography (Lung Vol) Diffusing Cap (DLCO) Flow Vol Loop PFT Interpretation This is a pulmonary function test with pre and post-bronchodilator spirometry, plethysmography and diffusing capacity. The test was performed and results interpreted in accordance with the 2019 and 2005 ATS/ERS Task Force guidelines respectively using the Global Lung Function Initiative-2012 reference equations. Patient demonstrated good effort and cooperation. Reproducibility criteria were met. The quality of the pre bronchodilator spirometry maneuver was Grade A and post bronchodilator spirometry maneuver was Grade A. Findings: Spirometry: The contour the inspiratory and expiratory flow tracing are normal. The pre bronchodilator FVC is 1.56 L, 58% predicted. The pre bronchodilator FEV1 is 1.24 L, 58% predicted. The pre bronchodilator FEV1: FVC ratio is 79%. The post bronchodilator FVC is 1.39 L, representing an 11% decrease. The post bronchodilator FEV1 is 1.09 L, representing a 12% decrease. The post bronchodilator FEV1: FVC ratio is 78%. Plethysmography: The total lung capacity is 3.31 L, 72% predicted. The functional residual capacity is 1.68 L, 64% predicted. The residual volume is 1.50 L, 78% predicted. Diffusing capacity: The diffusing capacity unadjusted for hemoglobin and carboxyhemoglobin is 12.2, 61% predicted. The diffusing capacity adjusted for alveolar volume is 4.8, 108% predicted. Impression: There is a moderately severe restrictive ventilatory abnormality. The spirometry is normal without evidence of an obstructive abnormality. There is no significant improvement after inhaling a single dose of albuterol. The diffusing capacity unadjusted for hemoglobin and carboxyhemoglobin is mildly decreased and normalizes when adjusted for alveolar volume. There are no prior studies for comparison
== END 2025-04-19 14:21 | disposition home or self-care (01) ==
PROVIDERS: PCP Nurse Practitioner Family; Visit Provider Internal Medicine Pulmonary Disease
DX: R94.2 Abnormal results of pulmonary function studies (principal); R06.09 Other forms of dyspnea
CPT/HCPCS: 94060; 94726; 94729

== ENCOUNTER 2025-06-20 18:53 | Emergency (ER) | payer MEDICARE, MEDICAID, SELFPAY ==
--- OUTSIDE RECORDS SUMMARY | 2025-05-03 05:00 | XMS_ITS ---
Author Organization [facility] Address [address] [place] [address] Care Team Providers Care Xray Tech Name Role Phone Sujata Gorman Primary Care Provider [phone] Chaka Licea Unavailable [phone] REASON FOR VISIT Labs-fasting Social History Sex Assigned At : Social History Observation Description Sex Assigned At Female Encounters Encounter Location Date Provider Diagnosis [address] [place] [address] 05/03/2025 Chaka Licea Plan Of Treatment No Information Progress Notes * Lori BARNARDDOB:1960 (64 yo F)Acc No.[id number]:05/03/2025 UNLOCKED PROGRESS NOTE Patient: Lori PEREZ Provider: Conner Licea APN :1960 A ge:64 Y S ex:Female Date:05/03/2025 Address:[address] [place], [place] [id number] Pcp:Sujata Gorman Check In:10:17 AM SOCIAL SERVICE ASSISTANT Subjective: * Chief Complaints: * 1 . Labs-fasting. * Medical History: Objective: * Vitals: Assessment: Plan: * Treatment: * * Electronic signature of Torin Licea on 06/20/2025 at 06:57 PM CDT Sign off status: Pending * Provider: Conner Licea APN Date: 0 05/03/2025 Generated for Simone neville/Yo/Kwabena on: 1 06:57 PM CDT
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
--- OUTSIDE RECORDS SUMMARY | 2025-06-20 18:58 | XMS_ITS | Encounter Summary ---
Author Organization [facility] Address [address] [place] [address] Care Team Providers Care Bread Room Hand Name Role Phone Sunshine Blancas NP Primary Care Provider [phone] Chaka Licea NP Primary Care Provider + Encounter Details Date Type Department Care Team (Late st Contact Info) Description 02/18/2025 Orders Only [facility] Information Management [address] [place] [address] Scanning, Provider Social History Tobacco Use Types Packs/Day Years Used Date Smoking Tobacco: Never Assessed Comments Unknown Sex and Gender Information Value Date Recorded Sex Assigned at Not on file Legal 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 Gender Identity Not on file Sexual Orientation Not on file documented as of this encounter Plan of Treatment Not on file documented as of this encounter Procedures Procedure Name Priority Date/Time Associated Diagnosis Comments SCAN - RADIOLOGY/IMAGING 02/18/2025 documented in this encounter Results * SCAN - RADIOLOGY/IMAGING (02/18/2025) Anatomical Region Laterality Modality Other us Provider Scanning Final Result documented in this encounter Visit Diagnoses Not on filedocumented in this encounter Care Teams Bread Room Hand Relationship Specialty Start Date End Date Sunshine Blancas NP [address] [place] [address] PCP - General Nurse Practitioner 07/16/21 06/02/25 Chaka Licea NP [address] [place] [address] PCP - General Family Medicine 06/03/25 documented as of this encounter
--- OUTSIDE RECORDS SUMMARY | 2025-06-20 18:58 | XMS_ITS | Clinical Summary ---
Author Organization [facility] Address [address] [place] [address] Care Team Providers Care Checker In Name Role Phone Sunshien Blancas CORDELL Primary Care Provider [phone] Allergies No known active allergies Medications multi vitamin/minera ls (THERA-M ENHANCED) tablet Take 1 tablet by mouth daily. Active Spacer/Aero-Ho lding Chambers ([facility]) Device see administration instructions. 4 Active [...] acute cor pulmonale, unspecified pulmonary embolism type 11/10/2018 08/17/2024 Cough 11/10/2018 07/23/2021 Hip pain, right 09/20/2017 09/29/2023 Hyperglycemia 06/09/2017 09/29/2023 Breast lump 08/30/2013 08/17/2024 Hematuria 08/14/2013 08/17/2024 Abdominal pain 08/14/2013 07/23/2021 Closed fracture of rib 11/04/201008/17 Closed fracture of femur 11/04/2010 Encounters Date Type Department Care Team Description 04/19/2025 Scan HEALTH INFO SRVCS Scanned, Doc Med Group PFT (SCAN) from Last 3 Months Immunizations Immunization [...] Comments Blood Pressure 134/80 08/17/2024 10:52 AM DIESEL POWER SHOVEL OPERATOR Pulse 90 08/17/2024 10:52 AM DIESEL POWER SHOVEL OPERATOR Temperature 36.3 C (97.4 F) 08/17/2024 10:52 AM DIESEL POWER SHOVEL OPERATOR Respiratory Rate 24 08/17/2024 10:5 2 AM DIESEL POWER SHOVEL OPERATOR Oxygen Saturation 96% 08/17/2024 10: 52 AM DIESEL POWER SHOVEL OPERATOR Inhaled Oxygen Concentration - - Weight 139.6 kg (307 lb 12.8 oz) 2023 10:52 AM DIESEL POWER SHOVEL OPERATOR Height 157.5 cm (5' 2) 08/17/2024 10:5 2 AM DIESEL POWER SHOVEL OPERATOR Body Mass Index 56.3 08/17/2024 10:52 AM DIESEL POWER SHOVEL OPERATOR Plan of Treatment Health Maintenance Due Date Last Done Comments Colorectal Cancer Screening Colonoscopy (10 Years) 1959 Mammogram Screening 1999 Pneumococcal Vaccine: 50+ Years (1 of 1 - PCV) 2009 Zoster Vaccines (1 of 2) 2009 RSV Immunization or 60+ Years (1 - Risk 60-74 years 1-dose series) 2019 PHQ-2 (Physician [place]) 09/05/2024 09/29/2023 Dexa Scan (General) 2024 DTaP, Tdap and Td Vaccines (2 - Td or Tdap) 12/06/2024 12/06/2014 COVID-19 Vaccine ( season) 2025 08/17/2024, 09/27/2023, 04/15/2022, Additional history exists Influenza Adult (#1) 2025 08/17/2024, 09/29/2023, 06/11/2022, Additional history exists Hepatitis C Completed 09/29/2023 [...] Procedure Name Priority Date/Time Associated Diagnosis Comments PFT GENERIC (SCAN ORDER) 04/19/2025 HEPATITIS C ANTIBODY Routine 09/29/2023 10:29 AM DIESEL POWER SHOVEL OPERATOR Encounter for hepatitis C screening test for low risk patient from Last 3 Months or Most Recently Relevant to Health Maintenance Results * PFT GENERIC (SCAN ORDER) (04/19/2025) 04/19/2025 us Doc Med [facility] Scanned SCANNING Final Resu lt * HEPATITIS C ANTIBODY ([facility] ONLY) (09/29/2023 10:29 AM DIESEL POWER SHOVEL OPERATOR) HEPATITIS C AB NON-REACTI VE NON-REACT MICHAEL 09/29/2023 7:15 PM DIESEL POWER SHOVEL OPERATOR [facility] Comment: ANTIBODIES TO HCV NOT DETECTED. DOES NOT EXCLUDE THE POSSIBILITY OF EXPOSURE TO HCV. 09/29/2023 10:2 9 AM DIESEL POWER SHOVEL OPERATOR [facility] Final Result [facility] [address] [place] [address], [id number] from Last 3 Months or Most Recently Relevant to Health Maintenance Insurance [employer] MEDICAID MEDICARE MEDICAID Care Teams Checker In Relationship Specialty Start Date End Date Sunshine Blancas FNP [address] [place] [address] PCP - General 12/22/16
--- OUTSIDE RECORDS SUMMARY | 2025-06-20 18:58 | XMS_ITS | Clinical Summary ---
Author Organization [facility] Address [address] [place] [address] Care Team Providers Care Airport Ramp Agent Name Role Phone Chaka Licea NP Primary Care Provider + Allergies No known active allergies Medications cyclobenzaprine (FLEXERIL) 10 mg tablet Take 1 tablet (10 mg total) by mouth 3 (three) times a day as needed for muscle spasms 15 tablet 07/16/2021 Active ibuprofen (ADVIL,MOTRIN) 600 mg tablet Take 1 tablet (600 mg total) by mouth every 8 (eight) hours as needed for pain 20 tablet 07/16/2021 Active lisinopriL (PRINIVIL,ZESTRI L) 10 mg tablet Take 1 tablet (10 mg total) by mouth daily 05/25/2025 Active Active Problems Problem Noted Date Diagnosed Date Exertional chest pain 06/03/2025 Essential hypertension 06/03/2025 BMI 50.0-59.9, adult 06/03/2025 Bilateral lower extremity edema 06/03/2025 Closed fracture of rib 11/04/2010 Closed fracture of femur 11/04/2010 Encounters Date Type Department Care Team Description 06/03/2025 1:30 PM CDT Office Visit [facility] Cardiology [address] [facility] [address] [place] [address] Neetu Fuchs MD Exertional chest pain (Primary Dx); Essential hypertension; Lipid screening; BMI 50.0-59.9, adult (HCC); Bilateral lower extremity edema 06/03/2025 Orders Only [facility] Cardiology [address] [place] [address] Provider, MD Abhi from Last 3 Months Medical History Medical History Date Comments Asthma Hypertension Family History Medical History Relation Name Comments Heart attack Father Heart attack Mother Relation Name Status Comments Father At age 80 also had myocardial infarction Mother At age 80 Social History Tobacco Use Types Packs/Day Years Used Date Smoking Tobacco: Never Assessed Comments Unknown Sex and Gender Information Value Date Recorded Sex Assigned at Not on file 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 Gender Identity Not on file Sexual Orientation Not on file Obstetrics History Last Filed Vital Signs Vital Sign Reading Time Taken Comments Blood Pressure 138/70 06/03/2025 1:25 PM CDT Pulse 91 06/03/2025 1:25 PM CDT Temperature 36.7 C (98 F) 07/16/2021 3:13 PM ORTHOPEDICS TEACHER Respiratory Rate 20 07/16/2021 4:31 PM ORTHOPEDICS TEACHER Oxygen Saturation 98% 06/03/2025 1:25 PM CDT Inhaled Oxygen Concentration - - Weight 138.3 kg (305 lb) 06/03/2025 1:25 PM CDT Height 157.5 cm (5' 2) 06/03/2025 1:25 PM CDT Body Mass Index 55.79 06/03/2025 1:25 PM CDT Plan of Treatment Health Maintenance Due Date Last Done Comments Breast Cancer Screening-Mammogram 1960 Cervical Cancer Screening 1959 Colon Cancer Screening-Colonoscopy 1959 Depression Screening 1959 Fall Risk Assessment 1959 Hepatitis C Screening 1959 Osteoporosis Screening-Bone Density Scan 1959 Hepatitis B Screening 1977 Pneumococcal vaccine 65+ (1 of 2 - PCV) 1978 Zoster Vaccine (1 of 2) 2009 Well Visit 65+ 2024 DTaP/Tdap/Td Vaccine (2 - Td or Tdap) 12/06/2024 12/06/2014 Covid-19 Vaccine (4 - 2024-2 6 season) 2025 08/20/2021, 12/25/2020, 12/02/2020 Influenza Vaccine (#1) 2025 , 09/29/2023, 06/11/2022, Additional history exists Procedures Procedure Name Priority Date/Time Associated Diagnosis Comments POCT LIPID PANEL Routine 06/03/2025 1:21 PM CDT Lipid screening from Last 3 Months Results * (ABNORMAL) POCT lipid panel (06/03/2025 1:21 PM CDT) Cholesterol, POC 230 <200 MG/DL HDL, POC 59 >=40 mg/dL Triglycerides, POC 570(A) <=149 mg/dL LDL Cholesterol POC 117 <=129 mg/dL Chol/HDL Ratio, POC 171 NONE Non-HDL Cholesterol, POC 2.0 NONE mg/dL Cholesterol Total, POC 230(A) 30 - 199 mg/dL Capillary blood 06/03/2025 1 :21 PM CDT Neetu Fuchs MD POINT OF CARE TEST O RDERABLES Final Result from Last 3 Months Insurance [facility] [employer] MEDICARE PPO Care Teams Airport Ramp Agent Relationship Specialty Start Date End Date Chaka Licea NP [address] [place] [address] PCP - General Family Medicine 06/03/25
[2025-06-20 19:09] VITALS: BP 152/97; PULSE 110; RESP 20; TEMP 36.4; O2SAT 97
--- NOTE | 2025-06-20 19:10 | ED.FEMALEGU ---
HPI - Female Genitourinary General Chief complaint: Upper Respiratory Infection Stated complaint: UTI Time Seen by Provider: 06/20/25 19:13 Source: patient Mode of arrival: ambulatory Limitations: no limitations History of Present Illness HPI Narrative: 64 yo F presents with c/o fatigue, urinary incontinence, frequency for 3 to 4 days. Afebrile. Denies N/v. Patient concern for urinary tract infection. All systems reviewed and negative except as noted above. Related Data Allergies Allergy/AdvReac Type Severity Reaction Status Date / Time No Known Allergies Allergy Verified 06/20/25 19:08 [facility] Past Medical History Medical History MCNEILL (dyspnea on exertion) History of blood clots Post-menopausal History of blood transfusion Fractures C. difficile colitis Arthritis Bronchitis Asthma HTN (hypertension) Surgical History Surgical History History of orthopedic surgery L intermedullary nail History of ankle surgery right side Hx of appendectomy Hx of tonsillectomy Family History Family History Other Diabetes mellitus Grandparent Bladder cancer Mother Bladder cancer Sibling Lymphoma Social History Social History (Updated 03/20/25 @ 13:46 by Dara Benedict MA) Smoking status: Never smoker Second hand tobacco smoke exposure: No Alcohol intake: never Substance use: never Substance use type: does not use Do You Feel Safe in your Home?: Yes Lack of Transportation: No Lack of Food: Never True Current Housing: I Have Housing Concerned About Future Housing: No Difficulty Paying Gas/Electric Bills: No Difficulty Paying for Meds: No Currently Unemployed: No Education: High School Diploma/GED Difficulty w/ Childcare or Family Care: No Living arrangements: with family Gender identity (if verbalized by the patient): Female Spiritual care concerns: No Comments At time of signature, agree with nursing past medical, surgical, social and family history. There is no relevant family history pertinent to the presenting complaint. Exam Narrative: GENERAL: This is a well-nourished, well-developed patient, in no apparent distress. HEAD: normocephalic, atraumatic. EYES: PERRL. Sclera clear/white. Vision is grossly intact. EARS: External ears normal NOSE: External nose normal NECK: Neck supple, non-tender without lymphadenopathy, masses or thyromegaly. CARDIOVASCULAR: Regular rate and rhythm without murmurs, gallops, or rubs. RESPIRATORY: Clear to auscultation. Breath sounds equal bilaterally. No wheezes, rales, or rhonchi. SKIN: warm, Dry, intact with no suspicious lesions or rash, good texture and turgor. NEURO: awake, alert, and oriented to person, place and time. There were no obvious focal neurologic abnormalities. EXTREMITIES: No joint tenderness, effusion, or edema noted. Course Course Level of Care: Express Care Visit Vital Signs Vital signs: Reviewed MDM - Female Genitourinary MDM Narrative Medical decision making narrative: urinalysis trace leukocytes, 2+ blood. Due to patient's symptoms will treat with Augmentin. Patient is well-appearing, nontoxic. Differential Diagnosis Differential diagnosis: Likely urinary tract infection Discharge Plan Discharge Clinical Impression: Urinary tract infection Patient Disposition: Home Condition: Stable Instructions: Antibiotic Form, Urinary Tract Infection in Women (ED) Additional Instructions: take antibiotic as prescribed until gone. Drink at least 64 oz water a day. See your doctor if symptoms are not improving. If you have severe pain, fever or vomiting go to the ER. Patient Language: Somali Prescriptions: New amoxicillin-pot clavulanate [Augmentin] 500-125 mg tablet 1 tablet PO BID 7 Days Qty: 14 0RF Follow-up/Referrals: UNKNOWN,DOCTOR [Primary Care Provider] Time of Disposition: 19:18
[2025-06-20 19:13] LABS: EDUAAPPEAR Cloudy; EDUABILI Negative (Negative); EDUABLOOD 2+ (Negative); EDUACOLOR1 Yellow; EDUAGLUCOSE Negative (Negative); EDUAKETONE Trace (Negative); EDUALEUKO Trace (Negative); EDUANITRATE Negative (Negative); EDUAPH 5.5; EDUAPROTEIN Negative (Negative); EDUASPGRAVITY 1.025; EDUAUROBILI 0.2
== END 2025-06-20 19:21 | disposition home or self-care (01) ==
PROVIDERS: Emergency Provider Nurse Practitioner Family
DX: N39.0 Urinary tract infection, site not specified (principal); I10 Essential (primary) hypertension
CPT/HCPCS: 81003; 87077; 87086; 87186; 99213; G0463

== ENCOUNTER 2025-07-16 16:21 | Outpatient (CLI) | payer MEDICARE, MEDICAID, SELFPAY ==
--- NOTE | ~2025-07-16 | XR_ITS ---
EXAMINATION: XR chest 2V DATE: 07/16/2025 16:36 INDICATION: Shortness of breath TECHNIQUE: Frontal and lateral views of the chest were obtained. COMPARISON: February 18, 2025 FINDINGS: The lungs are clear. Heart size normal. Tortuous thoracic aorta unchanged in appearance. Degenerative changes throughout the thoracic spine. No acute or aggressive process seen. IMPRESSION: Stable chest x-ray with no focal acute process. Reviewed, dictated and finalized at location A. RTMENT CLERK
== END 2025-07-16 16:22 | disposition home or self-care (01) ==
PROVIDERS: PCP Registered Nurse; Visit Provider Registered Nurse
DX: R06.02 Shortness of breath (principal)
CPT/HCPCS: 71046